=== PATIENT | male | born 1965 | race Caucasian/White ===

== ENCOUNTER 2024-07-02 13:50 | Outpatient (CLI) | payer MEDICARE, SELFPAY ==
[2024-07-02 16:53] LABS: Basophils # 0.1 K/mm3 (0-0.2); Basophils % 0.8 % (0.1-2.0); Eosinophils # 0.4 K/mm3 (0.0-0.4); Eosinophils % 3.4 % (0.1-12.0); Hematocrit 45.7 % (42.0-52.0); Hemoglobin 14.6 g/dL (14.1-18.0); Lymphocytes # 2.4 K/mm3 (0.7-4.5); Lymphocytes % 22.7 % (10-50); Mean Corpuscular Hemoglobin 33.9 pg (27.0-31.2); Mean Platelet Volume 8.7 fl (7.4-10.4); Monocytes # 0.9 K/mm3 (0.1-1.0); Monocytes % 8.1 % (1.7-9.3); Neutrophils % 65.1 % (37.0-80.0); Platelet Count 357 K/mm3 (142-424); Red Blood Count 4.31 M/mm3 (4.60-6.20); Red Cell Distribution Width 13.9 % (11.5-17.5); White Blood Count 10.7 K/mm3 (4.8-10.8)
[2024-07-02 17:24] LABS: Albumin Level 3.8 g/dl (3.5-5.0); Chloride 110 mmol/L (98-107); Potassium 4.2 mmoL/L (3.5-5.1); Sodium 139 mmol/L (136-145)
[2024-07-02 17:26] LABS: Alanine Aminotransferase 29 U/L (12-78); Anion Gap 8.2 mEq/L (5-15); Aspartate Amino Transferase 27 U/L (17-59); Blood Urea Nitrogen 19 mg/dl (9-20); Carbon Dioxide 25 mmol/L (22.0-30.0); Estimated Glomerular Filt Rate 77 ml/min (>60); GFR (African American) 93 ML/MIN (>60)
[2024-07-02 17:27] LABS: Albumin/Globulin Ratio 1.5 (1.1-1.8); Alkaline Phosphatase 71 U/L (38-126); Bilirubin,Total 0.5 mg/dl (0.2-1.3); Calcium 8.7 mg/dl (8.4-10.2); Chol/HDL Ratio 4.9 (1-3.5); Cholesterol 177 mg/dl (140-200); Globulin 2.6 g/dL (1.3-3.2); Glucose 95 mg/dl (74-100); HDL Cholesterol 36 mg/dl (40-60); Total Protein,Serum 6.4 g/dl (6.3-8.2); Triglycerides 146 mg/dl (30-150); VLDL Cholesterol 29 mg/dL (0-40)
[2024-07-02 17:38] LABS: Direct LDL Cholesterol 108.96 mg/dL (100-129)
[2024-07-02 20:57] LABS: HIV (1&2) Antibody Rapid NONREACTIVE (NONREACTIVE)
[2024-07-04 08:15] LABS: HCV Ab Non Reactive (Non Reactive)
== END 2024-07-02 23:59 | disposition home or self-care (01) ==
LOC: LAB.CARL 07-05 12:52
PROVIDERS: PCP Family Medicine; Visit Provider Family Medicine
DX: I10 Essential (primary) hypertension (principal); Z11.59 Encounter for screening for other viral diseases; Z11.4 Encounter for screening for human immunodeficiency virus [HIV]; R73.03 Prediabetes
CPT/HCPCS: 80053; 80061; 83036; 85025; 86803; 87389

== ENCOUNTER 2024-10-11 09:52 | Outpatient (CLI) | payer MEDICARE, SELFPAY ==
[2024-10-11 16:49] LABS: Hematocrit 44.5 % (42.0-52.0); Hemoglobin 14.6 g/dL (14.1-18.0); Mean Corpuscular HGB Conc 32.8 g/dL (31.8-35.4); Mean Corpuscular Hemoglobin 33.1 pg (27.0-31.2); Mean Corpuscular Volume 100.9 fl (80-94); Red Blood Count 4.41 M/mm3 (4.60-6.20); White Blood Count 9.4 K/mm3 (4.8-10.8)
[2024-10-11 16:50] LABS: Basophils # 0.1 K/mm3 (0-0.2); Basophils % 0.6 % (0.1-2.0); Eosinophils # 0.3 K/mm3 (0.0-0.4); Eosinophils % 3.2 % (0.1-12.0); Lymphocytes # 3.1 K/mm3 (0.7-4.5); Lymphocytes % 32.7 % (10-50); Monocytes # 1.1 K/mm3 (0.1-1.0); Neutrophils # 4.7 K/mm3 (1.8-7.8); Neutrophils % 50.3 % (37.0-80.0); Platelet Count 334 K/mm3 (142-424); Red Cell Distribution Width 13.2 % (11.5-17.5)
[2024-10-11 17:09] LABS: Alanine Aminotransferase 33 U/L (12-78); Albumin Level 3.8 g/dl (3.5-5.0); Albumin/Globulin Ratio 1.7 (1.1-1.8); Alkaline Phosphatase 76 U/L (38-126); Anion Gap 13.3 mEq/L (5-15); Aspartate Amino Transferase 34 U/L (17-59); Bilirubin,Total 0.6 mg/dl (0.2-1.3); Blood Urea Nitrogen 16 mg/dl (9-20); Carbon Dioxide 30 mmol/L (22.0-30.0); Chloride 103 mmol/L (98-107); Chol/HDL Ratio 5.1 (1-3.5); Cholesterol 113 mg/dl (140-200); Estimated Glomerular Filt Rate 62 ml/min (>60); GFR (African American) 76 ML/MIN (>60); Globulin 2.3 g/dL (1.3-3.2); Glucose 54 mg/dl (74-100); HDL Cholesterol 22 mg/dl (40-60); Potassium 4.3 mmoL/L (3.5-5.1); Sodium 142 mmol/L (136-145); Total Protein,Serum 6.1 g/dl (6.3-8.2); Triglycerides 92 mg/dl (30-150); VLDL Cholesterol 18 mg/dL (0-40)
[2024-10-11 17:20] LABS: Direct LDL Cholesterol 71.38 mg/dL (100-129)
[2024-10-11 18:32] LABS: Hemoglobin A1C 6.3 % (4.0-6.0)
[2024-10-15 05:08] LABS: Free Testosterone (Direct) 7.3 pg/mL (7.2-24.0); Testosterone, Total, LC/MS 316.9 ng/dL (264.0-916.0)
== END 2024-10-11 23:59 | disposition home or self-care (01) ==
LOC: LAB.DROPOF 10-12 09:53
PROVIDERS: PCP Family Medicine; Visit Provider Family Medicine
DX: E29.1 Testicular hypofunction (principal); I10 Essential (primary) hypertension; R73.03 Prediabetes
CPT/HCPCS: 80053; 80061; 83036; 85025

== ENCOUNTER 2025-08-19 09:53 | Outpatient (CLI) | payer MEDICARE, SELFPAY ==
[2025-08-19 16:54] LABS: Hematocrit 44.8 % (42.0-52.0); Hemoglobin 15.4 g/dL (14.1-18.0); Immature Granulocytes % 0.9 %; Mean Corpuscular HGB Conc 34.4 g/dL (31.8-35.4); Mean Corpuscular Hemoglobin 34.1 pg (27.0-31.2); Mean Corpuscular Volume 99.3 fl (80-94); Nucleated Red Blood Cells % 0 %; Platelet Count 369 K/mm3 (142-424); Red Blood Count 4.51 M/mm3 (4.60-6.20); Red Cell Distribution Width-SD 47.8 fL; White Blood Count 10.0 K/mm3 (4.8-10.8)
[2025-08-19 17:25] LABS: Hemoglobin A1C 6.1 % (4.0-6.0)
[2025-08-19 18:21] LABS: Albumin Level 4.8 g/dl (3.5-5.0); Chloride 102 mmol/L (98-107); Potassium 4.6 mmoL/L (3.5-5.1); Sodium 136 mmol/L (136-145)
[2025-08-19 18:24] LABS: Alanine Aminotransferase 25 U/L (12-78); Albumin/Globulin Ratio 2.2 (1.1-1.8); Alkaline Phosphatase 112 U/L (38-126); Anion Gap 10.6 mEq/L (5-15); Aspartate Amino Transferase 26 U/L (17-59); Bilirubin,Total 0.8 mg/dl (0.2-1.3); Carbon Dioxide 28 mmol/L (22.0-30.0); Cholesterol 168 mg/dl (140-200); Globulin 2.2 g/dL (1.3-3.2); Total Protein,Serum 7.0 g/dl (6.3-8.2); Triglycerides 114 mg/dl (30-150)
[2025-08-19 18:25] LABS: Calcium 9.2 mg/dl (8.4-10.2); Glucose 102 mg/dl (74-100); HDL Cholesterol 38 mg/dl (40-60)
[2025-08-19 18:44] LABS: Blood Urea Nitrogen 20 mg/dl (9-20); Creatinine,Serum 1.10 mg/dl (0.66-1.25); Estimated Glomerular Filt Rate 69 ml/min (>60); GFR (African American) 83 ML/MIN (>60)
[2025-08-19 19:13] LABS: Hepatitis C Ab Qual. W/ RFX NEGATIVE (Negative)
[2025-08-19 19:16] LABS: Thyroid Stimulating Hormone 1.20 uIU/mL (0.465-4.68)
--- OUTSIDE RECORDS SUMMARY | 2025-08-22 10:07 | XMS_ITS | Data Portability ---
Author Organization [facility] & [place] [facility] Address [address] [place] [address] Care Team Providers Care Public Housing Interviewer Name Role Phone JOSE KAMINSKI Primary Care Provider Assessment No assessment recorded. Plan of Treatment Reminders Order Date Submit Date Provider Last Modified By Organization Details Last Modified Time Details Appointments None record ed. Lab None record ed. Referral None record ed. Procedures None record ed. Surgeries None record ed. Imaging None record ed. Medication Orders None record ed. Patient TargetsNo targets recorded. Patient InstructionsNo instructions recorded. Reason for Referral None Reported. Results Created Date Observation Date Name Description Value Unit Range Abnormal Flag Note LastModifiedBy Organization Detail LastModifiedTime 10/10/20 22 10/10/2022 nerve condu ction study /EMG (PROC ) No observ ation record ed. [email or web address] Not Available 2021 17:36:20 Result Notes None recorded. Procedures Surgical History Date Name Laterality Status Provider Name and Address Organization Details Recorded Time 0 [facility] 08:[facility]03 procedure on back completed Bertha ROJO [facility] 05/15/2023 08:42:48 [facility] [place] [facility]/15/2023 08:42:26 Imaging Results None recorded. Procedure Notes None recorded. Medical Equipment None Reported. Allergies No known drug allergies Medications Name Sig Start Date Stop Date Status Note LastModified by Organization Details LastModified Time gabapentin 600 mg tablet TAKE 1 TABLET 3 TIMES EACH DAY active Not Available Not Available No t Available atorvastatin 20 mg tablet TAKE 1 TABLET 1 TIME EACH DAY active Not Available Not Available No t Available ibuprofen 800 mg tablet TAKE (1) TABLET BY MOUTH THREE TIMES DAILY NEEDED FOR PAIN. active Not Available Not Available No t Available lisinopril 20 mg tablet TAKE 1 TABLET 1 TIME EACH DAY active Not Available Not Available No t Available topiramate 25 mg tablet TAKE 1 TABLET 1 TIME EACH DAY active Not Available Not Available No t Available phentermine 37.5 mg tablet TAKE 1 TABLET 1 TIME EACH DAY FOR WEIGHT LOSS. TAKE 30 MINUTES BEFORE BREAKFAST OR 1 TO 2 HOURS AFTER BREAKFAST. active Not Available Not Available N ot Available phentermine 30 mg capsule TAKE 1 CAPSULE 1 TIME EACH DAY active Not Available Not Available No t Available amlodipine 10 mg tablet TAKE 1 TABLET 1 TIME EACH DAY active Not Available Not Available No t Available gabapentin 300 mg capsule TAKE 1 CAPSULE BY MOUTH THREE TIMES DAILY. active Not Available Not Available No t Available pravastatin 20 mg tablet TAKE 1 TABLET 1 TIME EACH DAY active Not Available Not Available No t Available triamterene 75 mg-hydrochlor othiazide 50 mg tablet TAKE 1 TABLET 1 TIME EACH DAY active Not Available Not Available No t Available ibuprofen 600 mg tablet TAKE 1 TABLET BY MOUTH THREE TIMES DAILY NEEDED FOR PAIN. active Not Available Not Available No t Available scopolamine 1 mg over 3 days transdermal patch active Not Available Not Available Not Available topiramate 100 mg tablet TAKE 1 TABLET 2 TIMES EACH DAY active Not Available Not Available No t Available topiramate 50 mg tablet Take 1 tablet twice a day by oral route. active Not Available Not Available No t Available phentermine active Not Available Not A vailable Not Available diclofenac 1 % topical gel APPLY 2 GRAMS 4 TIMES EACH DAY. APPLY TO SINGLE ELBOW, WRIST OR HAND (HAND INCLUDES PALM, FINGERS AND BACK OF HAND) active Not Available Not Available No t Available Vitals Date Recorded Body height Body mass index (BMI) Body weight Provider Name and Address Organization Details Last Updated DateTime 05/15/2023 185.42 cm 46.2 kg/m2 943973.33 g Bertha Parry [facility] & [place] 05/15/2023 08:38:49 Social History Question Answer Notes LastModified by Organizat ion Details LastModified Time Tobacco Smoking Status Former Smoker Karoline bowens, [facility] & [place] 10/07/2022 11:28:49 Do You Have An Advance Directive? No Information not available 05/15/2023 Sex: Unknown Functional Status Question Answer Note LastModified by Organizat ion Details LastModified Time What is your level of alcohol consumption? Occasional Information not available 05/15/2023 Mental Status None recorded. Family History Relationship Description Onset Age of this Age Resolved Age Notes LastModified by Organization Details LastModified Time Father Hypertensive disorder [email or web address] Not available 2022 08:39:58 Father Heart disease [email or web address] Not available 2022 08:40:16 Mother Heart disease [email or web address] Not available 2022 08:40:16 Medical History Condition Response Gout Y Back Problems Y Hypertension Y High Cholesterol Y Immunizations Vaccine Type Date Status Note Provider Nam e and Address Organization Details Recorded Time Influenza, split virus, quadrivalent, preservative 8 completed Briana Dulce Maria null, [place] - [facility] & [place] 10/14/2024 09:08:29 Influenza, split virus, quadrivalent, preservative 2 completed Briana Dulce Maria null, [place] - [facility] [place] & [place] 10/14/2024 09:08:29 Influenza, split virus, quadrivalent, preservative 1 completed Briana Dulce [place] null, [place] - [facility] & [place] 10/14/2024 09:08:29 Influenza, split virus, quadrivalent, preservative 8 completed Briana Dulce Maria null, [place] - [facility] [place] & [place] 10/14/2024 09:08:29 COVID-19, mRNA, LNP-S, PF, 100 mcg/0.5mL dose or 50 mcg/0.25mL dose 1 completed Briana Dulce Maria null, [place] - [facility] [place] & [place] 10/14/2024 09:08:29 COVID-19, mRNA, LNP-S, PF, 100 mcg/0.5mL dose or 50 mcg/0.25mL dose 1 completed Briana Dulce Maria null, [place] - [facility] & [place] 10/14/2024 09:08:29 COVID-19, mRNA, LNP-S, bivalent, PF, 50 mcg/0.5 mL or 25mcg/0.25 mL dose 2 completed Briana Dulce Maria null, [place] - [facility] - [place] & [place] 10/14/2024 09:08:29 Tdap 6 completed Briana Dulce Maria null, [place] - [facility] [place] & [place] 10/14/2024 09:08:29 Influenza, split virus, trivalent, preservative 0 completed Briana Dulce [place] null, [place] - [facility] [place] & [place] 10/14/2024 09:08:29 Td (adult), 2 Lf tetanus toxoid, preservative free, adsorbed 8 completed Briana Dulce [place] null, [place] - [facility] [place] & [place] 10/14/2024 09:08:29 Td (adult), 2 Lf tetanus toxoid, preservative free, adsorbed 7 completed Briana Dulce Maria null, [place] - [facility] - [place] & [place] 10/14/2024 09:08:29 Past Encounters Encounter ID Performer Location Encounter Start Date Encounter Closed Date Diagnosis/Indication Diagnosis SNOMED-CT Code Diagnosis ICD10 Code Diagnosis IMO Codes Diagnosis Note [id number] [facility] [place] [id number] 10/10/2022 14:50:01 10/10/2022 15:44:55 Bilateral carpal tunnel syndrome 9480156578 1648412 G56.03 [id number] Pepe Davis MD [facility] [address] [address] 05/15/2023 08:31:36 05/15/2023 09:28:46 Bilateral carpal tunnel syndrome 3794864535 3050407 G56.03 Ulnar nerv e entrapment at elbow 225145451 G56.23 [id number] Pepe Davis MD [facility] [place] [phone] 10/14/2024 08:58:47 10/14/2024 09:34:28 Carpal tunnel syndrome of right wrist 1234133098 91910 G56.01 Health Concerns Section Related Observation LastModified by Organization Detai ls LastModified Time None Recorded Concern Status LastModified by Organization Details LastModified Time None Recorded Advance Directives Directive N: Payers Insurance Date Sequence Insurance Name Policy Number Policy Clement Covered Member ID Clement Member ID Guarantor Name 12/03/2024 1 [place]MEDICARE REPLACEMENT HMO) [id number] Jorge Moreno [id number] Jorge Moreno 10/17/2022 1 [place] Jorge Moreno [id number] Jorge Moreno 12/20/2024 2 MEDICAID-[facility] Jorge Moreno [id number] Jorge Moreno Notes Date Note Type Note Provider Name and Address Organization Details Recorded Time 10/10/2022 text/html ROS as noted in the HPI 57 y/o male here today for bilateral CTS. No recent EMG. Was told 20 years ago when applying for a job with [employer] he had carpal tunnel, would not hire him but is unsure how severe it was then. In the last couple months his fingertips have stayed numb. Denies neck pain. Has worn the wrist braces at night in past. Denies dropping things. [id number] Pepe Davis MD [address] [place] [address],[address], [place], [address], [facility] 10/14/2022 13:22:46 05/15/2023 text/html ROS as noted in the HPI 57 year old male here today for bilateral carpal tunnel syndrome. He states that left feels worse than right. He has tried bracing, did not help. states every finger of bilateral hands are numb. Pepe Davis MD [address] [place] [address],[address], [place], [address], [facility] 05/16/2023 07:10:36 10/14/2024 text/html ROS as noted in the HPI Pt is here to discuss Rt CTR. 03/24/2023- [place] upper EMG- [facility]: 1. 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 He he wanting to discuss Rt [id number] Pepe Davis MD [address] [facility],[address], [place], [address], [facility] - [place] & [place] 10/14/2024 09:48:04
--- OUTSIDE RECORDS SUMMARY | 2025-08-22 10:07 | XMS_ITS | Data Portability ---
Author Organization [facility] Address [address] [place] [address] Assessment Encounter Date Assessment Date Assessment LastModified by Organization Details LastModified Time 08/23/2022 08/23/2022 controlled drug agreement reviewed and signed 11/09/21 UDS today [email or web address] Not available 08/16/2022 21:12:06 03/07/2023 03/07/2023 controlled drug agreement reviewed and signed 11/09/21 UDS today [email or web address] Not available 03/07/2023 09:03:13 05/05/2023 05/05/2023 controlled drug agreement reviewed and signed 11/09/21 UDS 03/07/23 [email or web address] Not available 04/25/2023 21:37:28 10/06/2023 10/06/2023 controlled drug agreement reviewed and signed 11/09/21 UDS 03/07/23, today [email or web address] Not available 07/30/2023 11:08:02 Plan of Treatment Reminders Order Date Submit Date Provider Last Modified By Organization Details Last Modified Time Details Appointments None recorded. Lab HbA1c (hemoglobin A1c), blood 2022 023 KARAN [facility], [address], [address], [place], [address], 3 07:13:34 CMP, serum or plasma 2022 023 KARAN [facility], [address], [address], [place], [address], 3 07:13:30 drug screen, 14 drugs (detectimed ), urine 2022 023 KARAN [facility], [address], [address], [place], [address], 3 12:09:13 lipid panel, serum 2022 023 KARAN [facility], [address], [address], [place], [address], 3 07:13:31 vitamin B12 + folate, serum or blood 2022 023 KARAN [facility], [address], [address], [place], [address], 3 07:13:33 HbA1c (hemoglobin A1c), blood 2022 023 KARAN [facility], [address], [address], [place], [address], 3 06:17:29 CMP, serum or plasma 2022 023 KARAN [facility], [address], [address], [place], [address], 3 06:17:28 drug screen, 14 drugs (detectimed ), urine 2022 023 KARAN [facility], [address], [address], [place], [address], 3 14:12:22 vitamin D, 25-hydroxy, total, serum 2022 023 KARAN [facility], [address], [address], [place], [address], 3 06:17:30 CBC w/ auto diff 2022 023 KARAN [facility], [address], [address], [place], [address], 3 06:17:27 lipid panel, serum 2022 023 KARAN [facility], [address], [address], [place], [address], 06:17:29 drug screen, 14 drugs (detectimed ), urine 2021 nguttman [facility], [address], [address], [place], [address], 17:31:48 lipid panel, serum 2021 KARAN [facility], [address], [address], [place], [address], 07:13:08 CMP, serum or plasma 2021 KARAN [facility], [address], [address], [place], [address], 07:13:07 PSA, total, serum or plasma 2021 KARAN [facility], [address], [address], [place], [address], 07:13:09 vitamin D, 25-hydroxy, total, serum 2021 KARAN [facility], [address], [address], [place], [address], 07:13:09 Referral orthopedic surgeon referral 2021 KARAN Davis MD, [address] [facility] , [place], [address], 16:16:41 Procedures None recorded. Surgeries None recorded. Imaging electromyog moreno + nerve conduction study 2022 023 KARAN Ruth PT, [address], [address], [place], [address], 14:14:22 Medication Orders phentermine 37.5 mg capsule 2022 023 KARAN [facility], [address], [place], [address], 4 15:46:09 topiramate 100 mg tablet 2022 023 KARAN [facility], [address], [place], [address], 3 16:40:28 gabapentin 600 mg tablet 2022 023 KARAN [facility], [address], [place], [address], 3 16:40:27 phentermine 37.5 mg capsule 2022 023 KARAN [facility], [address], [place], [address], 3 14:28:54 Mounjaro 2.5 mg/0.5 mL subcutaneou s pen injector 2022 023 KARAN [facility], [address], [place], [address], 3 11:06:59 gabapentin 600 mg tablet 2022 023 KARAN [facility], [address], [place], [address], 3 14:28:57 topiramate 50 mg tablet 2022 023 ngutzack [facility], [address], [place], [address], 4 16:04:43 phentermine 37.5 mg capsule 2022 023 KARAN [facility], [address], [place], [address], 3 09:15:30 [facility] 20 mg tablet [facility], [address] [place] [address], [id number], 3 21:36:30 ibuprofen 600 mg tablet 2022 023 OKEMAH [facility], [address] [place] [address], [id number], 3 09:21:23 Vitamin D3 50 mcg (2,000 unit) capsule 2022 023 [facility], [address] [place] [address], [id number], 3 09:21:22 amlodipine 10 mg tablet 2022 023 [facility], [address] [place] [address], [id number], 3 09:21:22 lisinopril 20 mg tablet 2022 023 [facility], [address] [place] [address], [id number], 3 09:21:22 triamterene 75 mg-hydrochl orothiazide 50 mg tablet 2022 023 [facility], [address] [place] [address], [id number], 3 09:21:23 Vitamin B-12 1,000 mcg tablet 2022 023 [facility], [address] [place] [address], [id number], 3 09:21:24 [facility]iramate 50 mg tablet [facility], [address] [place] [address], [id number], 16:04:43 gabapentin 600 mg tablet 2021 022 KARAN [facility], [address] [place] [address], [place], [place], [id number], 09:31:03 Patient TargetsNo targets recorded. Patient Instructions Encounter Date Encounter Id Patient Instructions Last Modified By Organization Details Last Modified Time 04/15/2022 [id number] return friday if not improving, okay if packing comes out tomorrow [email or web address] Not available 04/16/2022 19:04:43 08/23/2022 [id number] learning about healthy weight [email or web address] Not available 08/23/2022 09:20:01 03/07/2023 [id number] learning about healthy weight [email or web address] Not available 03/07/2023 09:13:25 05/05/2023 [id number] learning about healthy weight nguttman Not available 05/05/2023 14:28:24 10/06/2023 [id number] learning about healthy weight nguttman Not available 10/06/2023 09:12:55 recombinant zoster (shingles) vaccine: what you need to know [email or web address] Not available 10/06/2023 09:12:56 Reason for Referral Orthopedic Surgeon Referral for Bilateral carpal tunnel syndrome Referring Physician: Caroline Carlos, Family Medicine, Encounter Date: 08/23/2022 Results Created Date Observation Date Name Description Value Unit Range Abnormal Flag Note LastModifiedBy Organization Detail LastModifiedTime 08/23/2008/24/2022 COMP. METAB OLIC PANEL (14) glucose 86 mg/dL 70-99 Not Available [facility] ([facility]) [address] [place], [address], 08/24/2022 07:13:07 08/23/20 22 08/24/2022 COMP. METAB OLIC PANEL (14) BUN 23 mg/dL 6-24 Not Available [facility] ([facility]) [address] [place], [address], 08/24/2022 07:13:07 08/23/20 22 08/24/2022 COMP. METAB OLIC PANEL (14) creatinine 1.23 mg/dL 0.76-1 .27 Not Available [facility] ([facility]) [address] [facility] [address], [place], [address], 08/24/2022 07:13:07 08/23/20 22 08/24/2022 COMP. METAB OLIC PANEL (14) eGFR 69 mL/mi n/1.7 3 >59 Not Available [facility] ([facility]) [address] [facility], [place], [address], 08/24/2022 07:13:07 08/23/20 22 08/24/2022 COMP. METAB OLIC PANEL (14) BUN/creatini ne ratio 19 9-20 Not Available [facility] ([facility]) [address] [facility], [place], [address], 08/24/2022 07:13:07 08/23/20 22 08/24/2022 COMP. METAB OLIC PANEL (14) sodium 139 mmol/ L 134-14 4 Not Available [facility] ([facility]) [address] [place], [address], 08/24/2022 07:13:07 08/23/20 22 08/24/2022 COMP. METAB OLIC PANEL (14) potassium 4.6 mmol/ L 3.5-5. 2 Not Available [facility] ([facility]) [address] [facility], [place], [address], 08/24/2022 07:13:07 08/23/20 22 08/24/2022 COMP. METAB OLIC PANEL (14) chloride 103 mmol/ L 96-106 Not Available [facility] ([facility]) [address] [place], [address], 08/24/2022 07:13:07 08/23/20 22 08/24/2022 COMP. METAB OLIC PANEL (14) carbon dioxide, total 21 mmol/ L 20-29 Not Available [facility] ([facility]) [address], [place], [address], 08/24/2022 07:13:07 08/23/20 22 08/24/2022 COMP. METAB OLIC PANEL (14) calcium 9.4 mg/dL 8.7-10 .2 Not Available [facility] ([facility]) [address] [place], [address], 08/24/2022 07:13:07 08/23/20 22 08/24/2022 COMP. METAB OLIC PANEL (14) protein, total 6.9 g/dL 6.0-8. 5 Not Available [facility] ([facility]) [address] [place], [address], 08/24/2022 07:13:07 08/23/20 22 08/24/2022 COMP. METAB OLIC PANEL (14) albumin 4.6 g/dL 3.8-4. 9 Not Available [facility] ([facility]) [address] [facility] [place], [address], 08/24/2022 07:13:07 08/23/20 22 08/24/2022 COMP. METAB OLIC PANEL (14) globulin, total 2.3 g/dL 1.5-4. 5 Not Available [facility] ([facility]) [address] [facility] [place], [address], 08/24/2022 07:13:07 08/23/20 22 08/24/2022 COMP. METAB OLIC PANEL (14) A/G ratio 2.0 1.2-2. 2 Not Available [facility] ([facility]) [address] [facility] [place], [address], 08/24/2022 07:13:07 08/23/20 22 08/24/2022 COMP. METAB OLIC PANEL (14) bilirubin, total 0.7 mg/dL 0.0-1. 2 Not Available [facility] ([facility]) [address] [facility] [address], [place], [address], 08/24/2022 07:13:07 08/23/20 22 08/24/2022 COMP. METAB OLIC PANEL (14) alkaline phosphatase 77 IU/L 44-121 Not Available [facility] ([facility]) [address] [facility] [address], [place], [address], 08/24/2022 07:13:07 08/23/20 22 08/24/2022 COMP. METAB OLIC PANEL (14) AST (SGOT) 18 IU/L 0-40 Not Available [facility] ([facility]) [address] [place], [address], 08/24/2022 07:13:07 08/23/20 22 08/24/2022 COMP. METAB OLIC PANEL (14) ALT (SGPT) 18 IU/L 0-44 Not Available [facility] ([facility]) [address] [place], [address], 08/24/2022 07:13:07 08/23/20 22 08/24/2022 LIPID PANEL cholesterol, total 165 mg/dL 100-19 9 Not Available [facility] ([facility]) [address] [place], [address], 08/24/2022 07:13:08 08/23/20 22 08/24/2022 LIPID PANEL triglyceride s 81 mg/dL 0-149 Not Available [facility] ([facility]) [address] [place], [address], 08/24/2022 07:13:08 08/23/20 22 08/24/2022 LIPID PANEL HDL cholesterol 44 mg/dL >39 Not Available [facility] ([facility]) [address] [place], [address], 08/24/2022 07:13:08 08/23/20 22 08/24/2022 LIPID PANEL VLDL cholesterol mary ellen 15 mg/dL 5-40 Not Available [facility] ([facility]) [address] [facility] [address], [place], [address], 08/24/2022 07:13:08 08/23/20 22 08/24/2022 LIPID PANEL LDL chol calc ([facility]) 106 mg/dL 0-99 above high normal Not Available [facility] ([facility]) [address] [facility] [address], [place], [address], 08/24/2022 07:13:08 08/23/20 22 08/24/2022 LIPID PANEL comment: TUNG NUT GROWER Not Available [facility] ([facility]) [address] [facility], [place], [address], 08/24/2022 07:13:08 08/23/20 22 08/24/2022 PROST ATE-S PECIF IC AG prostate specific Ag 1.5 NG/mL 0.0-4. 0 Sarkis ECLIA metho dolog y. Accor ding to the Ameri can Urolo gical Assoc iatio n, Serum PSA shoul d decre ase and remai n at undet ectab le level s after radic al prost atect silvana. The AUA defin es bioch emica l recur rence as an initi al PSA value 0.2 ng/mL or great er follo wed by a subse quent confi rmato ry PSA value 0.2 ng/mL or great er. Value s obtai kojo with diffe rent assay metho ds or kits canno t be used inter louis eably . Resul ts canno t be inter prete d as absol venkat evide nce of the prese nce or absen ce of pam lamas se. Not Available [facility] ([facility]) [address] [facility], [place], [address], 08/24/2022 07:13:09 08/23/20 22 08/24/2022 VITAM IN D, 25-HY DROXY vitamin D, 25-hydroxy 27.4 NG/mL 30.0-1 00.0 below low normal Vitam in D defic iency has been defin ed by the Insti tute of Medic ine and an Endoc rine Socie ty pract ice guide line as a level of serum 25-OH vitam in D less than 20 ng/mL (1,2) . The Endoc rine Socie ty went on to fur er defin e vitam in D insuf ficie ncy as a level betwe en 21 and 29 ng/mL (2). 1. IOM (Inst itute of Medic ine). 2010. Dieta ry refer ence intak es for calci um and D. Breezy mandujano [place]: The [facility] Press . 2. Moody ann MF, Guille grant [place], Estefanía off-F errar i CARRASCO, et al. Evalu ation , treat ment, and preve ntion of vitam in D defic iency : an Endoc rine Socie ty clini mary ellen pract ice guide line. JCEM. 2010; 96(7) :1911 -30. Not Available [facility] ([facility]) [address] [place], [address], 08/24/2022 07:13:09 03/07/20 23 03/08/2023 CBC WITH DIFFE RENTI AL/PL ATELE T WBC 9.8 x10e3 /uL 3.4-10 .8 Not Available [facility] ([facility]) [address] [place], [address], 03/08/2023 06:17:27 03/07/2003/08/2023 CBC WITH DIFFE RENTI AL/PL ATELE T RBC 4.70 x10e6 /uL 4.14-5 .80 Not Available [facility] ([facility]) [address] [place], [address], 03/08/2023 06:17:27 03/07/20 23 03/08/2023 CBC WITH DIFFE RENTI AL/PL ATELE T hemoglobin 15.9 g/dL 13.0-1 7.7 Not Available [facility] ([facility]) [address] [place], [address], 03/08/2023 06:17:27 03/07/20 23 03/08/2023 CBC WITH DIFFE RENTI AL/PL ATELE T hematocrit 45.6 % 37.5-5 1.0 Not Available [facility] ([facility]) [address] [facility], [place], [address], 03/08/2023 06:17:27 03/07/20 23 03/08/2023 CBC WITH DIFFE RENTI AL/PL ATELE T MCV 97 fL 79-97 Not Available [facility] ([facility]) [address] [facility] [address], [place], [address], 03/08/2023 06:17:27 03/07/20 23 03/08/2023 CBC WITH DIFFE RENTI AL/PL ATELE T MCH 33.8 pg 26.6-3 3.0 above high normal Not Available [facility] ([facility]) [address] [facility], [place], [address], 03/08/2023 06:17:27 03/07/20 23 03/08/2023 CBC WITH DIFFE RENTI AL/PL ATELE T MCHC 34.9 g/dL 31.5-3 5.7 Not Available [facility] ([facility]) [address] [place], [address], 03/08/2023 06:17:27 03/07/20 23 03/08/2023 CBC WITH DIFFE RENTI AL/PL ATELE T RDW 12.7 % 11.6-1 5.4 Not Available [facility] ([facility]) [address] [place], [address], 03/08/2023 06:17:27 03/07/20 23 03/08/2023 CBC WITH DIFFE RENTI AL/PL ATELE T platelets 334 x10e3 /uL 150-45 0 Not Available [facility] ([facility]) [address] [place], [address], 03/08/2023 06:17:27 03/07/20 23 03/08/2023 CBC WITH DIFFE RENTI AL/PL ATELE T neutrophils 60 % not estab. Not Available [facility] ([facility]) [address] [facility], [place], [address], 03/08/2023 06:17:27 03/07/20 23 03/08/2023 CBC WITH DIFFE RENTI AL/PL ATELE T lymphs 23 % not estab. Not Available [facility] ([facility]) [address] [facility], [place], [address], 03/08/2023 06:17:27 03/07/20 23 03/08/2023 CBC WITH DIFFE RENTI AL/PL ATELE T monocytes 10 % not estab. Not Available [facility] ([facility]) [address] [facility] [address], [place], [address], 03/08/2023 06:17:27 03/07/20 23 03/08/2023 CBC WITH DIFFE RENTI AL/PL ATELE T eos 4 % not estab. Not Available [facility] ([facility]) [address] [facility] [address], [place], [address], 03/08/2023 06:17:27 03/07/20 23 03/08/2023 CBC WITH DIFFE RENTI AL/PL ATELE T basos 1 % not estab. Not Available [facility] ([facility]) [address] [facility] [address], [place], [address], 03/08/2023 06:17:27 03/07/20 23 03/08/2023 CBC WITH DIFFE RENTI AL/PL ATELE T immature cells TUNG NUT GROWER Not Available [facility] ([facility]) [address] [place], [address], 03/08/2023 06:17:27 03/07/20 23 03/08/2023 CBC WITH DIFFE RENTI AL/PL ATELE T neutrophils (absolute) 5.9 x10e3 /uL 1.4-7. 0 Not Available [facility] ([facility]) [address] [place], [address], 03/08/2023 06:17:27 03/07/20 23 03/08/2023 CBC WITH DIFFE RENTI AL/PL ATELE T lymphs (absolute) 2.3 x10e3 /uL 0.7-3. 1 Not Available [facility] ([facility]) [address] [place], [address], 03/08/2023 06:17:27 03/07/20 23 03/08/2023 CBC WITH DIFFE RENTI AL/PL ATELE T monocytes(ab solute) 1.0 x10e3 /uL 0.1-0. 9 above high normal Not Available [facility] ([facility]) [address] [place], [address], 03/08/2023 06:17:27 03/07/20 23 03/08/2023 CBC WITH DIFFE RENTI AL/PL ATELE T eos (absolute) 0.4 x10e3 /uL 0.0-0. 4 Not Available [facility] ([facility]) [address] [place], [address], 03/08/2023 06:17:27 03/07/20 23 03/08/2023 CBC WITH DIFFE RENTI AL/PL ATELE T baso (absolute) 0.1 x10e3 /uL 0.0-0. 2 Not Available [facility] ([facility]) [address] [place], [address], 03/08/2023 06:17:27 03/07/20 23 03/08/2023 CBC WITH DIFFE RENTI AL/PL ATELE T immature granulocytes 2 % not estab. Not Available [facility] ([facility]) [address] [place], [address], 03/08/2023 06:17:27 05/19/20 23 03/08/2023 CBC WITH DIFFE RENTI AL/PL ATELE T immature grans (abs) 0.2 x10e3 /uL 0.0-0. 1 above high normal (An eleva janice perce ntage of Immat ure Granu locyt es has not been found to be clini darlene signi fican t as a sole clini mary ellen predi ctor of disea se. Does NOT inclu de bands or blast cells . Pregn imtiaz assoc iated physi ologi mary ellen leuko cytos is may also show incre ased immat ure granu locyt es witho ut clini mary ellen signi fican ce.) Not Available [facility] ([facility]) [address] [facility], [place], [address], 03/08/2023 06:17:27 03/07/20 23 03/08/2023 CBC WITH DIFFE RENTI AL/PL ATELE T NRBC TUNG NUT GROWER Not Available [facility] ([facility]) [address] [place], [address], 03/08/2023 06:17:27 03/07/20 23 03/08/2023 CBC WITH DIFFE RENTI AL/PL ATELE T hematology comments: TUNG NUT GROWER Not Available [facility] ([facility]) [address] [place], [address], 03/08/2023 06:17:27 03/07/20 23 03/08/2023 COMP. METAB OLIC PANEL (14) glucose 100 mg/dL 70-99 above high normal Not Available [facility] ([facility]) [address] [place], [address], 03/08/2023 06:17:28 03/07/20 23 03/08/2023 COMP. METAB OLIC PANEL (14) BUN 23 mg/dL 6-24 Not Available [facility] ([facility]) [address] [place], [address], 03/08/2023 06:17:28 03/07/20 23 03/08/2023 COMP. METAB OLIC PANEL (14) creatinine 1.28 mg/dL 0.76-1 .27 above high normal Not Available [facility] ([facility]) [address] [place], [address], 03/08/2023 06:17:28 03/07/20 23 03/08/2023 COMP. METAB OLIC PANEL (14) eGFR 66 mL/mi n/1.7 3 >59 Not Available [facility] ([facility]) [address] [place], [address], 03/08/2023 06:17:28 03/07/20 23 03/08/2023 COMP. METAB OLIC PANEL (14) BUN/creatini ne ratio 18 9-20 Not Available [facility] ([facility]) [address] [place], [address], 03/08/2023 06:17:28 03/07/20 23 03/08/2023 COMP. METAB OLIC PANEL (14) sodium 143 mmol/ L 134-14 4 Not Available [facility] ([facility]) [address] [place], [address], 03/08/2023 06:17:28 03/07/20 23 03/08/2023 COMP. METAB OLIC PANEL (14) potassium 5.1 mmol/ L 3.5-5. 2 Not Available [facility] ([facility]) [address] [place], [address], 03/08/2023 06:17:28 03/07/20 23 03/08/2023 COMP. METAB OLIC PANEL (14) chloride 108 mmol/ L 96-106 above high normal Not Available [facility] ([facility]) [address] [place], [address], 03/08/2023 06:17:28 03/07/20 23 03/08/2023 COMP. METAB OLIC PANEL (14) carbon dioxide, total 21 mmol/ L Not Available [facility] ([facility]) [address] [facility] [place], [address], 03/08/2023 06:17:28 03/07/20 23 03/08/2023 COMP. METAB OLIC PANEL (14) calcium 9.5 mg/dL 8.7-10 .2 Not Available [facility] ([facility]) [address] [facility], [place], [address], 03/08/2023 06:17:28 03/07/20 23 03/08/2023 COMP. METAB OLIC PANEL (14) protein, total 6.9 g/dL 6.0-8. 5 Not Available [facility] ([facility]) [address] [facility], [place], [address], 03/08/2023 06:17:28 03/07/20 23 03/08/2023 COMP. METAB OLIC PANEL (14) albumin 4.6 g/dL 3.8-4. 9 Not Available [facility] ([facility]) [address] [facility] [place], [address], 03/08/2023 06:17:28 03/07/20 23 03/08/2023 COMP. METAB OLIC PANEL (14) globulin, total 2.3 g/dL 1.5-4. 5 Not Available [facility] ([facility]) [address] [facility], [place], [address], 03/08/2023 06:17:28 03/07/20 23 03/08/2023 COMP. METAB OLIC PANEL (14) A/G ratio 2.0 1.2-2. 2 Not Available [facility] ([facility]) [address] [facility] [place], [address], 03/08/2023 06:17:28 03/07/20 23 03/08/2023 COMP. METAB OLIC PANEL (14) bilirubin, total 0.4 mg/dL 0.0-1. 2 Not Available [facility] ([facility]) [address] [facility] [place], [address], 03/08/2023 06:17:28 03/07/20 23 03/08/2023 COMP. METAB OLIC PANEL (14) alkaline phosphatase 76 IU/L 44-121 Not Available [facility] ([facility]) [address] [facility], [place], [address], 03/08/2023 06:17:28 03/07/20 23 03/08/2023 COMP. METAB OLIC PANEL (14) AST (SGOT) 14 IU/L 0-40 Not Available [facility] ([facility]) [address] [facility] [place], [address], 03/08/2023 06:17:28 03/07/20 23 03/08/2023 COMP. METAB OLIC PANEL (14) ALT (SGPT) 15 IU/L 0-44 Not Available [facility] ([facility]) [address] [facility], [place], [address], 03/08/2023 06:17:28 03/07/20 23 03/08/2023 LIPID PANEL cholesterol, total 189 mg/dL 100-19 9 Not Available [facility] ([facility]) [address] [place], [address], 03/08/2023 06:17:29 03/07/20 23 03/08/2023 LIPID PANEL triglyceride s 82 mg/dL 0-149 Not Available [facility] ([facility]) [address] [place], [address], 03/08/2023 06:17:29 03/07/20 23 03/08/2023 LIPID PANEL HDL cholesterol 41 mg/dL >39 Not Available [facility] ([facility]) [address] [place], [address], 03/08/2023 06:17:29 05/19/03/08/2023 LIPID PANEL VLDL cholesterol mary ellen 15 mg/dL 5-40 Not Available [facility] ([facility]) [address] [place], [address], 03/08/2023 06:17:29 03/07/20 23 03/08/2023 LIPID PANEL LDL chol calc ([facility]) 133 mg/dL 0-99 above high normal Not Available [facility] ([facility]) [address] [place], [address], 03/08/2023 06:17:29 03/07/20 23 03/08/2023 LIPID PANEL comment: TUNG NUT GROWER Not Available [facility] ([facility]) [address] [facility], [place], [address], 03/08/2023 06:17:29 03/07/20 23 03/08/2023 HEMOG LOBIN A1C hemoglobin A1C 5.7 % 4.8-5. 6 above high normal Predi abete s: 5.7 - 6.4 Diabe katy: >6.4 Glyce usama contr ol for adult s with diabe katy: <7.0 Not Available [facility] ([facility]) [address] [facility], [place], [address], 03/08/2023 06:17:29 03/07/20 23 03/08/2023 VITAM IN D, 25-HY DROXY vitamin D, 25-hydroxy 41.9 NG/mL 30.0-1 00.0 Vitam in D defic iency has been defin ed by the Insti tute of Medic ine and an Endoc rine Socie ty pract ice guide line as a level of serum 25-OH vitam in D less than 20 ng/mL (1,2) . The Endoc rine Socie ty went on to furth er defin e vitam in D insuf ficie ncy as a level betwe en 21 and 29 ng/mL (2). 1. IOM (Inst itute of Medic ine). 2010. Dieta ry refer ence rufina es for calci um and D. Breezy mandujano [place]: [employer] . 2. Moody ann [place], Guille grant [place], Estefanía off-F errar i CARRASCO, et al. Evalu ation , treat ment, and preve ntion of vitam in D defic iency : an Endoc rine Socie ty clini mary ellen pract ice guide line. JCEM. 2010; 96(7) :1911 -30. Not Available [facility] ([facility]) [address], [place], [address], 03/08/2023 06:17:30 03/07/20 23 03/14/2023 COMPL IANCE DRUG WENDI SIS, UR summary report (summary) FINAL ===== ===== ===== ===== ===== ===== ===== ===== ===== ===== ===== ===== ===== === TOXAS SURE COMP DRUG WENDI SIS,U R ===== ===== ===== ===== ===== ===== ===== ===== ===== ===== ===== ===== ===== === Test Resul t Flag Units Drug Prese nt Rital inic Acid PRESE NT Rital inic acid is an expec janice metab olite of methy lphen idate . Sourc e of methy lphen idate is a sched uled presc ripti on medic ation . Gabap entin PRESE NT Topir amate PRESE NT ===== ===== ===== ===== ===== ===== ===== ===== ===== ===== ===== ===== ===== === Test Resul t Flag Units Ref Range Creat inine 98 mg/dL >=20 ===== ===== ===== ===== ===== ===== ===== ===== ===== ===== ===== ===== ===== === Decla red Medic ation s: Medic ation list was not provi ded. ===== ===== ===== ===== ===== ===== ===== ===== ===== ===== ===== ===== ===== === For clini mary ellen consu ltati on, pleas e call . ===== ===== ===== ===== ===== ===== ===== ===== ===== ===== ===== ===== ===== === Not Available [facility] ([facility]) [address] [place], [address], 03/14/2023 14:12:22 03/07/20 23 03/14/2023 COMPL IANCE DRUG WENDI SIS, UR pdf . Not Available [facility] ([facility]) [address] [place], [address], 03/14/2023 14:12:22 10/06/20 23 10/07/2023 COMP. METAB OLIC PANEL (14) glucose 107 mg/dL 70-99 above high normal Not Available [facility] ([facility]) [address] [place], [address], 10/07/2023 07:13:30 10/06/20 23 10/07/2023 COMP. METAB OLIC PANEL (14) BUN 24 mg/dL 6-24 Not Available [facility] ([facility]) [address] [place], [address], 10/07/2023 07:13:30 10/06/20 23 10/07/2023 COMP. METAB OLIC PANEL (14) creatinine 1.24 mg/dL 0.76-1 .27 Not Available [facility] ([facility]) [address] [facility] [place], [address], 10/07/2023 07:13:30 10/06/20 23 10/07/2023 COMP. METAB OLIC PANEL (14) eGFR 68 mL/mi n/1.7 3 >59 Not Available [facility] ([facility]) [address] [facility] [place], [address], 10/07/2023 07:13:30 10/06/20 23 10/07/2023 COMP. METAB OLIC PANEL (14) BUN/creatini ne ratio 08 07- Not Available [facility] ([facility]) [address] [facility] [place], [address], 10/07/2023 07:13:30 10/06/20 23 10/07/2023 COMP. METAB OLIC PANEL (14) sodium 140 mmol/ L 134-14 4 Not Available [facility] ([facility]) [address] [facility] [place], [address], 10/07/2023 07:13:30 10/06/20 23 10/07/2023 COMP. METAB OLIC PANEL (14) potassium 4.6 mmol/ L 3.5-5. 2 Not Available [facility] ([facility]) [address] [place], [address], 10/07/2023 07:13:30 10/06/20 23 10/07/2023 COMP. METAB OLIC PANEL (14) chloride 105 mmol/ L 96-106 Not Available [facility] ([facility]) [address] [place], [address], 10/07/2023 07:13:30 10/06/20 23 10/07/2023 COMP. METAB OLIC PANEL (14) carbon dioxide, total 21 mmol/ L 20-29 Not Available [facility] ([facility]) [address] [place], [address], 10/07/2023 07:13:30 10/06/20 23 10/07/2023 COMP. METAB OLIC PANEL (14) calcium 9.2 mg/dL 8.7-10 .2 Not Available [facility] ([facility]) [address] [place], [address], 10/07/2023 07:13:30 10/06/20 23 10/07/2023 COMP. METAB OLIC PANEL (14) protein, total 7.1 g/dL 6.0-8. 5 Not Available [facility] ([facility]) [address] [place], [address], 10/07/2023 07:13:30 10/06/20 23 10/07/2023 COMP. METAB OLIC PANEL (14) albumin 4.4 g/dL 3.8-4. 9 Not Available [facility] ([facility]) [address] [facility] [place], [address], 10/07/2023 07:13:30 10/06/20 23 10/07/2023 COMP. METAB OLIC PANEL (14) globulin, total 2.7 g/dL 1.5-4. 5 Not Available [facility] ([facility]) [address] [facility] [place], [address], 10/07/2023 07:13:30 10/06/20 23 10/07/2023 COMP. METAB OLIC PANEL (14) A/G ratio 1.6 1.2-2. 2 Not Available [facility] ([facility]) [address] [facility] [place], [address], 10/07/2023 07:13:30 10/06/20 23 10/07/2023 COMP. METAB OLIC PANEL (14) bilirubin, total 0.5 mg/dL 0.0-1. 2 Not Available [facility] ([facility]) [address] [facility] [place], [address], 10/07/2023 07:13:30 10/06/20 23 10/07/2023 COMP. METAB OLIC PANEL (14) alkaline phosphatase 83 IU/L 44-121 Not Available [facility] ([facility]) [address] [place], [address], 10/07/2023 07:13:30 10/06/20 23 10/07/2023 COMP. METAB OLIC PANEL (14) AST (SGOT) 16 IU/L 0-40 Not Available [facility] ([facility]) [address] [place], [address], 10/07/2023 07:13:30 10/06/20 23 10/07/2023 COMP. METAB OLIC PANEL (14) ALT (SGPT) 16 IU/L 0-44 Not Available [facility] ([facility]) [address] [place], [address], 10/07/2023 07:13:30 10/06/20 23 10/07/2023 LIPID PANEL cholesterol, total 150 mg/dL 100-19 9 Not Available [facility] ([facility]) [address] [place], [address], 10/07/2023 07:13:31 10/06/20 23 10/07/2023 LIPID PANEL triglyceride s 84 mg/dL 0-149 Not Available [facility] ([facility]) [address] [place], [address], 10/07/2023 07:13:31 10/06/20 23 10/07/2023 LIPID PANEL HDL cholesterol 41 mg/dL >39 Not Available [facility] ([facility]) [address] [place], [address], 10/07/2023 07:13:31 10/06/20 23 10/07/2023 LIPID PANEL VLDL cholesterol mary ellen 16 mg/dL 5-40 Not Available [facility] ([facility]) [address] [facility], [place], [address], 10/07/2023 07:13:31 10/06/20 23 10/07/2023 LIPID PANEL LDL chol calc ([facility]) 93 mg/dL 0-99 Not Available [facility] ([facility]) [address] [facility], [place], [address], 10/07/2023 07:13:31 10/06/20 23 10/07/2023 LIPID PANEL comment: TUNG NUT GROWER Not Available [facility] ([facility]) [address] [facility], [place], [address], 10/07/2023 07:13:31 10/06/20 23 10/07/2023 VITAM IN B12 AND FOLAT E vitamin B12 277 pg/mL 232-12 45 Not Available [facility] ([facility]) [address] [facility], [place], [address], 10/07/2023 07:13:33 10/06/2010/07/2023 VITAM IN B12 AND FOLAT E folate (folic acid), serum 3.6 NG/mL >3.0 A serum folat e isabelle ntrat ion of less than 3.1 ng/mL is consi dered to repre sent clini mary ellen defic iency . Not Available [facility] ([facility]) [address] [facility], [place], [address], 10/07/2023 07:13:33 10/06/20 23 10/07/2023 HEMOG LOBIN A1C hemoglobin A1C 6.0 % 4.8-5. 6 above high normal Predi abete s: 5.7 - 6.4 Diabe katy: >6.4 Glyce usama contr ol for adult s with diabe katy: <7.0 Not Available [facility] ([facility]) [address] [facility], [place], [address], 10/07/2023 07:13:34 10/06/20 23 10/11/2023 COMPL IANCE DRUG WENDI SIS, UR summary report (summary) FINAL ===== ===== ===== ===== ===== ===== ===== ===== ===== ===== ===== ===== ===== === TOXAS SURE COMP DRUG WENDI SIS,U R ===== ===== ===== ===== ===== ===== ===== ===== ===== ===== ===== ===== ===== === Test Resul t Flag Units Drug Prese nt Amphe tamin e 1003 ng/mg creat Amphe tamin e is avail able as a sched ule II presc ripti on drug. Phent ermin e PRESE NT Gabap entin PRESE NT Topir amate PRESE NT ===== ===== ===== ===== ===== ===== ===== ===== ===== ===== ===== ===== ===== === Test Resul t Flag Units Ref Range Creat inine 117 mg/dL >=20 ===== ===== ===== ===== ===== ===== ===== ===== ===== ===== ===== ===== ===== === Decla red Medic ation s: Medic ation list was not provi ded. ===== ===== ===== ===== ===== ===== ===== ===== ===== ===== ===== ===== ===== === For clini mary ellen consu ltati on, pleas e call [phone]. ===== ===== ===== ===== ===== ===== ===== ===== ===== ===== ===== ===== ===== === Not Available [facility] ([facility]) [address] [facility], [place], [address], 10/11/2023 12:09:13 10/06/20 23 10/11/2023 COMPL IANCE DRUG WENDI SIS, UR pdf . Not Available [facility] ([facility]) [address] [facility], [place], [address], 10/11/2023 12:09:13 07/03/20 22 06/27/2002 home sleep study No observ ation record ed. [facility] (Centralized Scheduling) [address], [place], [address], 07/03/2022 16:20:57 07/03/20 22 06/27/2002 home sleep study No observ ation record ed. [facility] (Centralized Scheduling) [facility] [address], [place], [address], 07/03/2022 16:26:43 03/24/20 23 03/24/2023 elect romyo gram + nerve condu ction study No observ ation record ed. [facility] [address], [place], [address], 03/25/2023 19:34:44 11/23/19 24 11/23/2023 XR, elbow , 3 or more view No observ ation record ed. [facility] (Central Scheduling) [address] [place] [address] , [place], [address], 11/24/2023 08:07:39 Result Notes None recorded. Problems Name Problem SNOMED Code Status Onset Date Resolution Date Notes Provider Name and Address Organization Details Recorded Time Essential hypertension 85396051 Active 2016 Caroline Carlos MD [facility] [address], [place], [address], [place] [facility] 2 12:12:21 Morbid obesity 706883923 Active 2016 Caroline Carlos MD [address], [place], [address], [place] [facility] 2 12:12:21 Gastroesophage al reflux disease 133579191 Active 2017 Caroline Carlos MD [address], [place], [address], [place] [facility] 2 12:12:21 Hyperlipidemia 14637943 Active 2017 Caroline Carlos MD [address], [place], [address], [place] [facility] 2 12:12:21 Osteoarthritis of hip 526429486 Active 2018 Caroline Carlos MD [address], [place], [address], [place] [facility] 2 12:12:21 Prediabetes 729882742 Active 2019 Caroline Carlos MD [address], [place], [address], [place] [facility] 2 12:12:21 Obstructive sleep apnea syndrome 37363505 Active 2021 Caroline Carlos MD [address], [place], [address], [place] [facility] 2 09:04:22 Problem Notes Documentation Provider Name and Address Organization Details Recorded Time Sleep Study : [facility] Clinical Note REPORT #: [id number] REPORT STATUS: Signed DATE: 06/28/22 TIME: 1220 PATIENT: WAI MORENO UNIT #: [id number] ROOM/BED: AGE: 57 SEX: M ATTEND: Yamilex HASSAN, Caroline ROBISON AUTHOR: Grant Hansen MD * ALL edits or amendments must be made on the electronic/computer document * Sleep Study Note Sleep Study Note Home sleep study 57-year-old male weight 336, BMI of 44. Presents for home sleep study. [place] of 3. Total monitoring time was 540 minutes Patient had an apnea plus hypopnea index of 23. Patient spent 22% of the night snoring. Patient spent 5.5 minutes less than 90% saturation, lowest saturation recorded was 72%. Patient had a mean heart rate of 71. Impression: Obstructive sleep apnea-hypopnea syndrome G4 7.33 Obesity Recommendations: 1. Weight loss. Avoidance of alcohol and sedatives. No driving motorized vehicles or operating heavy machinery while fatigued, sleepy or drowsy. 2. Begin auto titrating CPAP in a range of 5-20 cm. This auto titrating CPAP unit should be set up per patient's primary care physician/primary care provider /referring physician/referring provider. 3. If patient is intolerant to auto titrating CPAP or if ineffective, then consider return for full CPAP titration study. 4. Follow-up patient's primary care physician/primary care provider/referring physician/referring provider and with a sleep physician if necessary. at 1223 RPT #: [id number] END OF REPORT CC'ed Logic: Attending Provider: YAMILEX GARCIA Referring Provider: YAMILEX GARCIA Consulting Provider: YAMILEX Carlos MD [address], [place], [address], [place] - [facility] 08/23/2022 08:25:32 Procedures Surgical History Date Name Laterality Status Provider Name and Address Organization Details Recorded Time 023 Carpal tunnel surgery completed Caroline Carlos MD [address], [place], [address], [place] - [facility] 06/27/2023 18:24:49 022 I&D completed Caroline Carlos MD [address], [place], [address], [place] - [facility] 04/12/2022 09:50:22 021 Diastolic B/P 80-89 mm Hg completed Yessi Bran [place] - [facility] 11/16/2020 15:14:45 021 Systolic B/P greater than or equal to 140 mm Hg completed Yessi Bran [place] [facility] 11/16/2020 15:14:52 020 Hip Replacement completed Yessi Bran [place] [facility] 11/16/2020 15:12:46 020 Cardiac Cath completed Caroline Carlos MD [address], [place], [address], [place] [facility] 03/16/2020 15:54:20 019 Medication Reconcilliation completed Ute Mckenna [place] - [facility] 09/30/2019 13:08:00 Back Surgery completed Yessi Bran [place] [facility] 05/23/2017 09:52:57 Ankle arthroscopy/surger y completed Yessi Bran [place] [facility] 05/23/2017 09:53:08 Colonoscopy completed Lexus Golden RN [address], [place], [address], [place] [facility] 08/10/2019 11:18:51 Egd esophagogastrc fndoplsty completed Yessi Bran [place] - [facility] 05/23/2017 09:54:10 Imaging Results None recorded. Procedure Notes None recorded. Medical Equipment None Reported. Allergies No known drug allergies Medications Name Sig Start Date Stop Date Status Note LastModified by Organization Details LastModified Time cyclobenz aprine 10 mg tablet 07/10 completed Not Available Not Available Not Available amoxicill in 500 mg capsule TAKE 1 CAPSULE 3 TIMES EACH DAY UNTIL GONE. 05/17 completed Not Available Not Available Not Available gabapenti n 600 mg tablet TAKE 1 TABLET 3 TIMES EACH DAY active Not Available Not Available No t Available atorvasta tin 20 mg tablet Take 1 tablet every day by oral route. 2023 active Not Available Not Available Not Avai lable hydrocodo ne 5 mg-acetam inophen 325 mg tablet 10/06 completed Not Available Not Available Not Available lisinopri l 20 mg tablet TAKE 1 TABLET 1 TIME EACH DAY 2023 active Not Available Not Available Not Avai lable prednison e 20 mg tablet 07/10 completed Not Available Not Available Not Available gabapenti n 400 mg capsule Take 1 capsule 3 times a day by oral route. 05/12 completed dose increase Not Available Not Available Not Available phentermi ne 15 mg capsule TAKE 1 CAPSULE 1 TIME EACH DAY 09/01 completed Not Available Not Available Not Available topiramat e 25 mg tablet TAKE 1 TABLET 2 TIMES EACH DAY 11/14 completed Not Available Not Available Not Available phentermi ne 37.5 mg tablet TAKE 1 TABLET 1 TIME EACH DAY 02/26 completed Not Available Not Available Not Available tramadol 50 mg tablet TAKE 1 TABLET EVERY 6 HOURS NEEDED FOR PAIN. 01/07 completed Not Available Not Available Not Available triamcino lone acetonide 0.1 % topical cream APPLY A THIN FILM TO THE AFFECTED AREA OF SKIN 2 TIMES EACH DAY 07/30 completed Not Available Not Available Not Available phentermi ne 30 mg capsule TAKE 1 CAPSULE 1 TIME EACH DAY 03/07 completed Not Available Not Available Not Available bupropion HCl SR 100 mg tablet,12 hr sustained -release 05/23 completed Not Available Not Available Not Available meloxicam 7.5 mg tablet 03/13 completed Not Available Not Available Not Available [facility] qasim 2 mg tablet 11/16 completed Not Available Not Available Not Available amlodipin e 10 mg tablet TAKE 1 TABLET 1 TIME EACH DAY 2023 active Not Available Not Available Not Avai lable esomepraz ole magnesium 40 mg capsule,d elayed release 07/10 completed Not Available Not Available Not Available triamtere ne 37.5 mg-hydroc hlorothia zide 25 mg tablet 05/23 completed Pt states he was not aware med was sent Not Available Not Available Not Available omeprazol e 20 mg capsule,d elayed release Take 1 capsule every day by oral route. 11/16 completed Not Available Not Available Not Available pravastat in 20 mg tablet TAKE 1 TABLET 1 TIME EACH DAY 04/25 completed Not Available Not Available Not Available mupirocin 2 % topical ointment 08/27 completed Not Available Not Available Not Available triamtere ne 75 mg-hydroc hlorothia zide 50 mg tablet TAKE 1 TABLET 1 TIME EACH DAY 2023 active Not Available Not Available Not Avai lable ergocalci ferol (vitamin D2) 1,250 mcg (50,000 unit) capsule TAKE ONE CAPSULE ONCE A WEEK. 01/06 completed Not Available Not Available Not Available ibuprofen 600 mg tablet TAKE 1 TABLET 3 TIMES EACH DAY WITH FOOD NEEDED FOR PAIN active Not Available Not Available No t Available scopolami ne 1 mg over 3 days transderm al patch Apply 1 patch every 72 hours by transder mal route as needed. active Not Available Not Available No t Available topiramat e 100 mg tablet TAKE 1 TABLET 2 TIMES EACH DAY active Not Available Not Available No t Available phentermi ne 37.5 mg capsule Take 1 capsule every day by oral route. 2023 active Not Available Not Available Not Avai lable naproxen 500 mg tablet 07/10 completed Not Available Not Available Not Available spironola ctone 50 mg tablet Take by oral route for 30 days. 05/23 completed back pain Not Available Not Available Not Available Vitamin B-12 1,000 mcg tablet Take 1 tablet every day by oral route. 2023 active Not Available Not Available Not Avai lable oxycodone 5 mg tablet 11/16 completed Not Available Not Available Not Available Vitamin D3 25 mcg (1,000 unit) capsule Take 1 capsule every day by oral route. 03/07 completed Not Available Not Available Not Available topiramat e 50 mg tablet Take 1 tablet twice a day by oral route. 02/26 completed Not Available Not Available Not Available diclofena c 1 % topical gel APPLY 2 GRAMS 4 TIMES EACH DAY. APPLY TO SINGLE ELBOW, WRIST OR HAND (HAND INCLUDES PALM, FINGERS AND BACK OF HAND) active Not Available Not Available No t Available Vitamin D3 50 mcg (2,000 unit) capsule Take 1 capsule every day by oral route. 2023 active Not Available Not Available Not Avai lable Flucelvax Quad (PF) 60 mcg (15 mcg x 4)/0.5 mL IM syringe Inject by intramus c. route for 1 day. 11/16 completed Not Available Not Available Not Available Mounjaro 2.5 mg/0.5 mL subcutane ous pen injector 2.5 mg SQ qweek x 4 , then 5 mg SQ qweek 07/30 completed Not Available Not Available Not Available Vitals Date Recorded Body height Body mass index (BMI) Body weight Body temperature Respiratory rate Heart rate Oxygen saturation Oxygen saturation in Arterial blood by Pulse oximetry Systolic And Diastolic Provider Name and Address Organization Details Last Updated DateTime 3 185.42 cm 47.4 kg/m2 311645. 71 g 98.5 [degF] 20 /min 73 /min 97 % 97 % 144/90 mm[Hg] Yessi Bran [place] - [facility] 3 08:52:34 Date Recorded Body height Body mass index (BMI) Body weight Body temperature Heart rate Oxygen saturation Oxygen saturation in Arterial blood by Pulse oximetry Respiratory rate Systolic And Diastolic Provider Name and Address Organization Details Last Updated DateTime 3 185.42 cm 47.3 kg/m2 719683. 82 g 97.7 [degF] 74 /min 98 % 98 % 20 /min 142/78 mm[Hg] Yessi Bran [facility] 3 14:04:18 Date Recorded Body height Body mass index (BMI) Body weight Body temperature Heart rate Respiratory rate Oxygen saturation Oxygen saturation in Arterial blood by Pulse oximetry Systolic And Diastolic Provider Name and Address Organization Details Last Updated DateTime 2 185.42 cm 44.5 kg/m2 916586. 78 g 98.9 [degF] 78 /min 20 /min 98 % 98 % 120/74 mm[Hg] Yessi Bran [place] - [facility] 2 08:56:31 Date Recorded Body height Body mass index (BMI) Body weight Body temperature Respiratory rate Heart rate Oxygen saturation Oxygen saturation in Arterial blood by Pulse oximetry Systolic And Diastolic Provider Name and Address Organization Details Last Updated DateTime 3 185.42 cm 48.5 kg/m2 089078. 15 g 98.9 [degF] 20 /min 95 /min 97 % 97 % 130/84 mm[Hg] Yessi Bran [place] - [facility] 3 08:49:58 Social History Question Answer Notes LastModified by Organizat ion Details LastModified Time Tobacco Smoking Status Former Smoker quit about age 43. chews a can a day Yessi bowens [place] - [facility] 05/23/2017 09:51:52 Able To Swim? Yes Information not available 05/23/2017 Do You Have An Advance Directive? No Information not available 11/04/2019 Do You Wear A Helmet When Biking? No Information not available 05/23/2017 Are You Blind Or Do You Have Difficulty Seeing? No Information not available 05/23/2017 What Is Your Level Of Caffeine Consumption? Moderate Information not available 11/04/2019 Are You Deaf Or Do You Have Serious Difficulty Hearing? No Information not available 05/23/2017 Which Illicit Or Recreational Drugs Have You Used? Previous Information not available 05/23/2017 Swimming/diving Yes Informati on not available 05/23/2017 Hard Of Hearing Or Deaf In One Or Both Ears? No Information not available 05/23/2017 Legally Blind In One Or Both Eyes? No Information not available 05/23/2017 Do You Have A Medical Power Of Building Surveyor? No Information not available 05/05/2023 What Was The Date Of Your Most Recent Tobacco Screening? 10/06/2023 Information not available 10/06/2023 What Is Your Relationship Status? Information not available 05/23/2017 Seat Belts Used Routinely Yes Information not available 05/23/2017 Are You Sexually Active? Yes Information not available 05/23/2017 Smoke Alarm In Home Yes Information not available 05/23/2017 Do You Use Sunscreen Routinely? No Information not available 05/23/2017 Has Tobacco Cessation Counseling Been Provided? No Information not available 03/12/2019 On What Date Was Tobacco Cessation Counseling Provided? 10/06/2023 Rglascock Answered No To The Tobacco Cessation Counseling Provided Question On 03/12/2019. Information not available 10/06/2023 Do You Have Difficulty Walking Or Climbing Stairs? No Information not available 05/23/2017 Sex: Unknown Functional Status Question Answer Note LastModified by Organizat ion Details LastModified Time Do you use any illicit or recreational drugs? No Information not available 05/05/2023 What is your level of alcohol consumption? None Information not available 05/23/2017 Are you currently employed? No Information not available 05/23/2017 Do you have transportation difficulties? No Information not available 03/07/2023 Are you able to walk independently without assistance or assistive devices? YESWOREST Information not available 11/04/2019 Do you have difficulty doing errands alone? No Information not available 05/23/2017 Are you able to care for yourself independently? Yes Information not available 05/23/2017 Do you have difficulty dressing, bathing, grooming, or toileting? No Information not available 05/23/2017 Do you or have you ever used e-cigarettes or vape? Former user of electronic cigarettes Information not available 11/04/2019 Mental Status Question Answer Note LastModified by Organization D etails LastModified Time Do you have difficulty concentrating, remembering or making decisions? No Information no t available 05/23/2017 Family History Relationship Description Onset Age of this Age Resolved Age Notes LastModified by Organization Details LastModified Time Mother Heart disease [email or web address] Not available 2016 09:49:54 Mother Malignant neoplasm of lung [email or web address] Not available 2016 09:50:03 Mother Myocardial infarction 55 [email or web address] Not available 05/23 10:12:08 Father Myocardial infarction 56 [email or web address] Not available 05/23 10:11:56 Maternal Grandfather Myocardial infarction [email or web address] Not available 05/23 09:51:33 Maternal Uncle Myocardial infarction 60 [email or web address] Not available 05/23 10:12:20 Medical History No medical history recorded. Immunizations Vaccine Type Date Status Note Provider Nam e and Address Organization Details Recorded Time Influenza, split virus, quadrivalent, preservative 1 completed Janine Rogers null, [place] - [facility] 08/27/2021 13:21:50 Influenza, split virus, quadrivalent, preservative 2 completed Yessi Bran [place] [facility] 08/23/2022 10:22:35 COVID-19, mRNA, LNP-S, bivalent, PF, 50 mcg/0.5 mL or 25mcg/0.25 mL dose 2 completed Yessi Bran null, [place] [facility] 08/23/2022 10:24:20 Influenza, split virus, quadrivalent, preservative 8 completed Not Available [facility] 11/06/2019 03:54:55 Tdap 6 completed Yessi Bath null, [place] - [facility] 05/23/2017 09:48:36 Influenza, split virus, quadrivalent, preservative 3 completed Yessi Bath null[place] [facility] 10/06/2023 17:33:17 Influenza, split virus, quadrivalent, preservative 9 completed Yessi Bath null[place] [facility] 11/04/2019 15:40:23 SARS-COV-2 (COVID-19) vaccine, UNSPECIFIED 1 completed Yessi Bath null[place] [facility] 02/22/2021 14:46:10 SARS-COV-2 (COVID-19) vaccine, UNSPECIFIED 1 completed Yessi Bath null[place] [facility] 02/22/2021 14:46:22 Influenza, split virus, quadrivalent, preservative 8 completed Not Available [facility] [place] 11/06/2019 03:55:24 Past Encounters Encounter ID Performer Location Encounter Start Date Encounter Closed Date Diagnosis/Indication Diagnosis SNOMED-CT Code Diagnosis ICD10 Code Diagnosis IMO Codes Diagnosis Note [id number] Caroline Carlos MD [address] [place] [address] 05/23/2017 09:27:03 05/23/2017 10:36:17 Body mass index 40+ - severely obese 017544533 Z68.43 Essential hypertension 21525251 I10 Edema 043179268 R60.9 Pain of hip region 53539 002 M25.551 Venous stasis 75468152 I 87.8 [id number] Caroline Carlos MD [address] [place] [address] 07/10/2017 14:48:04 07/10/2017 15:37:54 Morbid obesity 804696360 E66.01 Essential hypertension 72861202 I10 Fatigue 50572178 R53.83 Vitamin D deficiency 347 11483 E55.9 Sciatica 25853665 M54.31 Edema 336133843 R60.9 [id number] Caroline Carlos MD [address] [place] [address] 11/14/2017 11:29:08 11/14/2017 12:19:11 Essential hypertension 93931131 I10 Morbid obesity 729402041 E66.01 Gastroesop hageal reflux disease 691820617 K21.9 Sleep apnea 49733203 G47 .30 Hyperglycemia 41251427 R 73.9 Abnormal testosterone 13 6376161 R94.7 Hyperlipidemia 03833804 E78.5 Pain of ri ght hip joint 2440520248 37750 M25.551 Sciatica 98868227 M54.31 Administra tion of influenza vaccine 50708008 Z23 [id number] Caroline Carlos MD [address] [place] [address] 03/13/2018 09:15:13 03/13/2018 09:40:09 Hyperlipidemia 06072399 E78.5 Gastroesop hageal reflux disease 739407743 K21.9 Essential hypertension 58065509 I10 Sciatica 07869985 M54.31 Cobalamin deficiency 190 028188 E53.8 Body mass index 40+ - severely obese 235172148 Z68.43 Osteoarthritis of hip 23 0562035 M16.11 [id number] Caroline Carlos MD [address] [place] [address] 06/18/2018 16:25:05 06/18/2018 17:09:30 Morbid obesity 276341493 E66.01 he has to lose weight. reconsider bariatric surgery Hyperlipidemia 93119568 E78.5 Gastroesop hageal reflux disease 860840190 K21.9 Essential hypertension 23795859 I10 Osteoarthritis of hip 23 3630818 M16.11 Cobalamin deficiency 190 805430 E53.8 [id number] Caroline Carlos MD [address] [place] [address] 08/28/2018 08:40:32 08/28/2018 10:20:29 Sleep apnea 85676810 G47.30 Osteoarthritis of hip 23 4718633 M16.11 Hyperlipidemia 53452328 E78.5 Essential hypertension 66942835 I10 Administra tion of influenza vaccine 00859329 Z23 Endocrine/ metabolic screening 383938939 Z13.228 Cobalamin deficiency 190 620475 E53.8 [id number] Caroline Carlos MD [address] [place] [address] 03/12/2019 10:35:01 03/12/2019 14:46:45 Morbid obesity 024263265 E66.01 he has to lose weight. reconsider bariatric surgery Hyperlipidemia 73596605 E78.5 Essential hypertension 77435697 I10 Osteoarthritis of hip 23 4085169 M16.11 Body mass index 40+ - severely obese 319976653 Z68.43 Prediabetes 620936266 R7 3.03 Vitamin D deficiency 347 60475 E55.9 Screening for malignant neoplasm of prostate 214946727 Z12.5 [id number] Anjelica Howe APRN [address] [place] [address] 09/30/2019 12:57:50 09/30/2019 14:00:13 Gastroesophageal reflux disease 691421027 K21.9 Chest pain 83089018 R07. 9 [id number] Caroline Carlos MD [address] [place] [address] 11/04/2019 15:27:33 11/04/2019 15:58:10 Morbid obesity 324242665 E66.01 he is reconsider ing bariatric surgery again Hyperlipidemia 31501126 E78.5 Gastroesop hageal reflux disease 891155802 K21.9 Essential hypertension 09624053 I10 Osteoarthritis of hip 23 9878503 M16.11 Body mass index 40+ - severely obese 242373039 Z68.43 Prediabetes 754004219 R7 3.03 [id number] Caroline Carlos MD [address] [place] [address] 03/16/2020 15:24:11 03/16/2020 16:25:32 Pre-surgery evaluation 909258282 Z01.818 Osteoarthritis of hip 23 0561685 M16.11 Morbid obesity 865517952 E66.01 he is reconsider ing bariatric surgery again Essential hypertension 06437386 I10 [id number] Caroline Carlos MD [address] [place] [address] 11/16/2020 14:50:39 11/16/2020 15:57:19 Essential hypertension 34851655 I10 Gastroesop hageal reflux disease 089261353 K21.9 Hyperlipidemia 06032218 E78.5 Morbid obesity 669973453 E66.01 he is reconsider ing bariatric surgery again Prediabetes 171540025 R7 3.03 Sleep apnea 51020949 G47 .30 Vitamin B1 2 deficiency (non anemic) 05958554 E53.8 Vitamin D deficiency 347 06030 E55.9 Screening for malignant neoplasm of prostate 069183551 Z12.5 Screening for malignant neoplasm of colon 822562439 Z12.11 Immunization due 2489334 08 Z28.3 encouraged to get shingrix vaccine Osteoarthritis of hip 23 0423843 M16.11 Cobalamin deficiency 190 996527 E53.8 [id number] Caroline Carlos MD [address] [place] [address] 12/21/2020 14:39:55 12/21/2020 15:01:34 Essential hypertension 99311677 I10 Morbid obesity 187505138 E66.01 he is reconsider ing bariatric surgery again Hyperlipidemia 62636395 E78.5 Prediabetes 296275663 R7 3.03 Body mass index 40+ - severely obese 285483281 Z68.43 [id number] Caroline Carlos MD [address] [place] [address] 02/22/2021 14:37:09 02/22/2021 15:05:30 Morbid obesity 450677993 E66.01 he is reconsider ing bariatric surgery again Essential hypertension 13437451 I10 controlled on med Body mass index 40+ - severely obese 853680890 Z68.43 Tenosynovi tis of right radial styloid 4183610131 6537468 M65.4 cont with 2-3 Ibu a day. if not improving - to Ortho Osteoarthritis of hip 23 4780609 M16.11 [id number] Caroline Carlos MD [address] [place] [address] 05/17/2021 15:08:46 05/17/2021 15:42:54 Essential hypertension 76809981 I10 controlled on med Hyperlipidemia 74031571 E78.5 continue statin tx Morbid obesity 999541766 E66.01 he is reconsider ing bariatric surgery again Prediabetes 735928520 R7 3.03 diet and wti loss reviewed Sleep apnea 92231474 G47 .30 Vitamin D deficiency 347 20388 E55.9 continue supplemeta tion Immunization due 9619586 08 Z28.3 encouraged to get shingrix vaccine Osteoarthritis of hip 23 6278878 M16.11 Cobalamin deficiency 190 618258 E53.8 continue supplement ation Sebaceous cyst of skin 663804160 L72.3 he will make an appt if he wants the excised [id number] Caroline Carlos MD [address] [place] [address] 08/27/2021 12:29:47 08/27/2021 14:04:44 Essential hypertension 78000029 I10 controlled on meds Hyperlipidemia 93179686 E78.5 continue statin tx Morbid obesity 926702584 E66.01 increasing phentermin e to 30 mg today Prediabetes 808298055 R7 3.03 last A1c 6.0% 01/05/21 Sleep apnea 65826422 G47 .30 Vitamin B1 2 deficiency (non anemic) 64965626 E53.8 continue supplement ation Vitamin D deficiency 347 62631 E55.9 continue supplement ation Immunization due 2373544 08 Z28.3 encouraged to get shingrix vaccine Osteoarthritis of hip 23 1887157 M16.11 meds help. encouraged to stay active Cobalamin deficiency 190 470950 E53.8 continue supplement ation Long-term drug therapy 694214412 Z79.899 Influenza vaccine needed 5293350595 106 Z23 Reducible umbilical hernia 021365197 K42.9 will continue to watch Skin irritation 48439538 7 L30.9 [id number] Caroline Carlos MD [address] [place] [address] 01/11/2022 08:19:29 01/11/2022 08:54:05 Vitamin D deficiency 81130864 E55.9 he has been off supplement ation - level low at recent check. will restart OTC Cobalamin deficiency 190 003193 E53.8 continue supplement ation Morbid obesity 578468757 E66.01 topriramat e increased to 50 mg bid today. cont phentermin e - reviewed risk of addiction. he is continuing to make dietary changes Osteoarthritis of hip 23 4330879 M16.11 meds help. encouraged to stay active Hyperlipidemia 89910863 E78.5 continue statin tx Prediabetes 768128172 R7 3.03 last A1c 5.6% 01/04/22 Essential hypertension 10787788 I10 controlled on meds [id number] Caroline Carlos MD [address] [place] [address] 04/12/2022 08:41:22 04/12/2022 09:47:04 Sebaceous cyst of skin 445096623 L72.3 very large and deep. advised removed most of cyst wall but with difficulty . packing place b/c the wound was so deep. he will RTC in 3 days to have it rechecked and the packing removed. he is to call or seek emergency help if he has any concerns with it over the weekend. keep clean with soap and water. he can take up to 4 of his Ibu qd for pain [id number] Caroline Carlos MD [address] [place] [address] 04/15/2022 09:35:33 04/15/2022 12:07:51 Abscess of skin and/or subcutaneous tissue 83124731 L02.91 [id number] Caroline Carlos MD [address] [place] [address] 08/23/2022 08:48:34 08/23/2022 11:16:29 Vitamin D deficiency 41973855 E55.9 taking OTC D3 2000 units qd Cobalamin deficiency 190 964149 E53.8 continue supplement ation with 1000 mcg qd Morbid obesity 209546431 E66.01 taking topiramate 25 mg bid (sometimes taking 3 a day). cont phentermin e 30 mg qd. he is continuing to make dietary changes. increasing topiramate to 50 mg bid (and he can take up to 3 a day) today. consider increasing phentermin e - advised the next dose up is the highest dose Osteoarthritis of hip 23 1362012 M16.11 meds help. encouraged to stay active Hyperlipidemia 22674178 E78.5 continue statin tx Prediabetes 134226555 R7 3.03 last A1c 5.6% 01/04/22 Essential hypertension 43317954 I10 controlled on meds Long-term drug therapy 756364665 Z79.899 Reviewed use of controlled substances ; risk of addiction or tolerance, and possible side effects, sarah constipati on and sedation. Patient voiced understand ing. Advised to keep med locked up at home Screening for malignant neoplasm of prostate 091691799 Z12.5 Obstructiv e sleep apnea syndrome 35583626 G47.33 he is back to using CPAP Influenza vaccine needed 1103889217 106 Z23 Bilateral carpal tunnel syndrome 6290566686 9454688 G56.03 Administra tion of SARS-CoV-2 antigen vaccine 505896781 Z23 [id number] Caroline Carlos MD [address] [place] [address] 03/07/2023 08:39:45 03/07/2023 09:28:58 Vitamin D deficiency 29512436 E55.9 taking OTC D3 2000 units qd Cobalamin deficiency 190 227284 E53.8 will restart supplement ation with 1000 mcg qd today Morbid obesity 589066645 E66.01 was taking topiramate 50 mg 2 qd and phentermin e 30 mg qd. it was working for him but seemed to plateau. will increase phentermin e to 37.5 mg qd and advised to take topiramate 1 bid. Osteoarthritis of hip 23 7725732 M16.11 meds help. encouraged to stay active Hyperlipidemia 04042845 E78.5 continue pravastati n 20 mg qd Prediabetes 998820176 R7 3.03 last A1c 5.6% 01/04/22 Essential hypertension 03958139 I10 controlled on meds Long-term drug therapy 659775699 Z79.899 Reviewed use of controlled substances ; risk of addiction or tolerance, and possible side effects, sarah dizziness, trouble sleeping or being too sleepy. Patient voiced understand ing. Advised to keep med locked up at home Obstructiv e sleep apnea syndrome 76042446 G47.33 he is back to using CPAP most nights Bilateral carpal tunnel syndrome 6379364022 7478546 G56.03 given splint and referred to ortho last Aug [id number] Caroline Carlos MD [address] [place] [address] 05/05/2023 13:48:59 05/05/2023 14:27:01 Vitamin D deficiency 36289411 E55.9 taking OTC D3 2000 units qd Cobalamin deficiency 190 375321 E53.8 taking supplement al B12 1000 mcg qd Morbid obesity 530463320 E66.01 taking topiramate 50 mg 2 qd and phentermin e 37.5 mg qd. not doing too well with above. will send [facility] today and see what happens. he knows ins may not cover it. reviewed the medication , and possible SE's, sarah nausea Osteoarthritis of hip 23 2561699 M16.11 ibu and gabapentin help. encouraged to stay active Hyperlipidemia 30937537 E78.5 started atorvastat in 20 mg qd Prediabetes 111175834 R7 3.03 last A1c 5.7% 03/07/23 Essential hypertension 07371623 I10 controlled on meds Long-term drug therapy 004535566 Z79.899 Reviewed use of controlled substances ; risk of addiction or tolerance, and possible side effects, sarah dizziness, trouble sleeping or being too sleepy. Patient voiced understand ing. Advised to keep med locked up at home Obstructiv e sleep apnea syndrome 75214511 G47.33 he is back to using CPAP most nights Bilateral carpal tunnel syndrome 6273755150 6208527 G56.03 referred to Ortho [id number] Caroline Carlos MD [address] [place] [address] 10/06/2023 08:41:34 10/06/2023 11:00:24 Vitamin D deficiency 93647875 E55.9 taking OTC D3 2000 units qd Cobalamin deficiency 190 944763 E53.8 taking supplement al B12 1000 mcg qd Morbid obesity 219549042 E66.01 taking topiramate 50 mg 2 qd and phentermin e 37.5 mg qd.. will try increasing topiramate to 100 mg bid today encouraged him to call his ins co to see if they will cover any of the GLP1's for weight loss Osteoarthritis of hip 23 7176612 M16.11 ibu and gabapentin help. encouraged to stay active Hyperlipidemia 71985887 E78.5 taking atorvastat in 20 mg qd Prediabetes 483819536 R7 3.03 last A1c 5.7% 03/07/23 Essential hypertension 79315158 I10 controlled on meds Long-term drug therapy 346327623 Z79.899 Reviewed use of controlled substances ; risk of addiction or tolerance, and possible side effects, sarah dizziness, trouble sleeping or being too sleepy. Patient voiced understand ing. Advised to keep med locked up at home Obstructiv e sleep apnea syndrome 89155086 G47.33 he is back to using CPAP most nights Immunization advised 310 218710 Z71.9 Influenza vaccine needed 6934261040 106 Z23 Chronic constipation 236 234691 K59.09 he will try OTC miralax. it is not much of a problems Administra tion of SARS-CoV-2 antigen vaccine 095050662 Z23 Health Concerns Section Related Observation LastModified by Organization Detai ls LastModified Time None Recorded Concern Status LastModified by Organization Details LastModified Time None Recorded Advance Directives Directive N: Payers Insurance Date Sequence Insurance Name Policy Number Policy Clement Covered Member ID Clement Member ID Guarantor Name 11/14/2023 1 [place]MEDICARE REPLACEMENT HMO) [id number] Wai Moreno [id number] Wai Moreno 10/06/2023 1 [place] Wai Moreno [id number] Wai Moreno 10/06/2023 1 [place] Wai Moreno [id number] Wai Moreno 10/06/2023 [employer] [place] - [facility] (MEDICARE) Wai Moreno [id number] Wai Moreno 11/14/2023 2 [place] [employer] - FFS/TRADITIONA L Wai Moreno [id number] Wai Moreno Notes Date Note Type Note Provider Name and Address Organization Details Recorded Time 04/15/2022 text/html ROS as noted in the HPI here to have packing checked in large abscess in upper back Marilu Nunes MD [address], [place], [address], [facility] - [facility] 04/16/2022 19:04:47 08/23/2022 text/html here for f/u and labs he has had a stressful couple months - 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 restarted CPAP recently taking topiramate and phentermine in the morning and topiramate in the evening. it doesn't seem like it has been working as well as it used to his carpal tunnel B is getting worse. will wake him at night and a problem with driving. will have to shake them out. 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 numb at finger tips and on sides of finger taking Ibu 600 mg tid. not wearing wrist splints. had abnormal EMG yrs ago he has cut back on his portions, but not changed what he is eating. no time to exercise. he is building a garage he has been walking more. getting more active over time. taking B12 and vit D 2000 units qd Caroline Carlos MD [address], [place], [address], [facility] - [facility] 08/23/2022 09:49:31 03/07/2023 text/html here for f/u increased topiramate to 50 mg bid last visit - but he has been out of it and phentermine for about 3 months they did work for him - he lost weight but he can plateaued. now he has regained off the meds referred to ortho and prescribed splint last visit for B CTS. they were going to do an EMG - never was scheduled he has cut back on his portions, but not changed what he is eating. no time to exercise taking vit D 2000 units qd; not B12 Caroline Carlos MD [address], [place], [address], [facility] - [facility] 03/07/2023 09:19:17 05/05/2023 text/html here for f/u last visit stop pravastatin and started atorvastatin 20 mg qd increased phentermine to 37.5 mg qd last visit - no weight change eating about the same. but he has been less active after work. he feels drained . driving a lot without much sleep referred to ortho and prescribed splint for B CTS. abnl EMG. appt at the end of the month he has cut back on his portions, but not changed what he is eating. no time to exercise taking vit D 2000 units qd and B12 Caroline Carlos MD [address], [place], [address], [facility] - [facility] 05/05/2023 14:28:44 10/06/2023 text/html here for f/u last visit prescribed Mounjaro for wt loss, as he wasn't improving on topiramate/phenterm ine. ins wouldn't cover it, so back to topiramate 50 mg bid/phentermine 37.5 mg qd - he thinks his weight would be worse without it. he wonders about increasing the dose he has only gone to the BR q2-3 days since he has been on it. when he doesn't have it he will go a lot. he is not uncomfortable but he feels like he is FOS he has had CTS release on the L - not happy with the result not eating as well and not as active as he was taking vit D 2000 units qd and B12 Caroline Carlos MD [address], [place], [address], [place] [facility] 10/06/2023 09:41:25
[2025-08-23 04:14] LABS: Hepatitis B Surface Antigen Negative (Negative)
== END 2025-08-19 23:59 | disposition home or self-care (01) ==
LOC: LAB.DROPOF 08-22 09:56
PROVIDERS: PCP Nurse Practitioner Family; Visit Provider Nurse Practitioner Family
DX: G47.30 Sleep apnea, unspecified (principal); R73.03 Prediabetes; I10 Essential (primary) hypertension; Z11.59 Encounter for screening for other viral diseases; Z11.4 Encounter for screening for human immunodeficiency virus [HIV]
CPT/HCPCS: 80053; 80061; 83036; 84443; 85025; 86803; 87340; 87389

== ENCOUNTER 2025-10-18 08:55 | Outpatient (CLI) | payer MEDICARE, MEDICAID, SELFPAY ==
--- OUTSIDE RECORDS SUMMARY | 2025-09-27 00:24 | XMS_ITS | Continuity of Care Document ---
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 Name Role Phone YARA RENEE Unavailable YARA RENEE Primary Attending YARA RENEE Primary Care YARA RENEE Admitting [phone] ALLERGIES AND ADVERSE REACTIONS ALLERGIES AND ADVERSE REACTIONS Code System Allergy Substance Adverse Reaction Date Reaction (Severity) Comment Status Reported By Updated By No Known Allergies [email or web address] on February 04, 2025 2:02:43 PM [place] RESULTS Patient: MYRNA CARRENO Date of : June [birth year] LABORATORY RESULTS Information is not available LABORATORY NARRATIVE RESULTS Information is not available RADIOLOGY RESULTS ORDER 100: CHEST PA AND LAT (LOINC: 64287-0) ORDER DATE: September 25, 2025 4:33:00 PM [facility] PERFORMING LAB: [address] [id number] Final Result Date: September 26, 2025 12:24:49 PM UTC [address] [address] Name: WAI NORRIS Exam Date: 09/25/2025 : 1965 Age 60 years Gender: M Physician: YARA RENEE Facility: [facility] HSV: Outpatient Exam: CHEST PA AND LAT PROCEDURE: XR CHEST 2 VIEWS, 09/25/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 COMPARISON: September 24, 2019 TECHNIQUE: PA and lateral views of the chest FINDINGS: Lines/Tubes: None Lungs: Right perihilar and basilar interstitial prominence, nonspecific for superimposed normal structures versus evolving infection or inflammation. Punctate density to the left mid lung field may represent calcified granuloma, measuring up to 4 mm. Hypoinflation. No pneumothorax. No effusion. Mediastinum: Cardiomediastinal silhouette is within normal limits. Bones: Unremarkable. Soft tissues: Unremarkable. IMPRESSION: Right perihilar and basilar interstitial prominence, nonspecific for superimposed normal structures versus evolving infection or inflammation. Consider correlation with CT as clinically indicated. Electronically signed by: Althea Acosta MD 09/26/2025 07:26 AM [facility] Dictated By: ALTHEA ACOSTA Transcribed By: Transcribed On: 09/26/2025 7:24 AM Electronically signed by: ALTHEA ACOSTA 09/26/2025 Thank you for referring WAI NORRIS to [facility]. Legally authenticated by KARLA Slater 2025-09-26 07:24:49 PATHOLOGY NARRATIVE RESULTS Information is not available MICROBIOLOGY RESULTS No Micro Labs/Results Exist for Patient BLOOD ADMIN RESULTS Information is not available MEDICATIONS HOME MEDICATIONS Status RXNORM NDC Medication Dose Route Frequency Dates Comments Reported By Updated By Drug Treatment Unknown DISCHARGE MEDICATIONS Status RXNORM NDC Medication Dose Route Frequency Dates Dis pense Data Comments Physician Updated By No Discharge Medication Info rmation Available INPATIENT MEDICATIONS Status RXNORM NDC Medication Dose Route Frequency Rat e Quantity Dates Indication Dispense Data Comments Physician Updated By No Inpatient Medication Info rmation Available SOCIAL HISTORY SOCIAL HISTORY - Smoking Status SNOMED-CT Social History Element Description Effective Dates Offered Cessation Comment Updated By [id number] Historical Tobacco smoking status Never Smoked [id number] on February 04, 2025 2:02:52 PM [facility] SOCIAL HISTORY - Gender Sex: Male SOCIAL HISTORY - Status : status i nformation is not available Intention in Next Year: intention information is not available SOCIAL HISTORY - Assessments Code System Description Status Date Value of Assessment Updated By Comment Assessment Information is no t available SOCIAL HISTORY - [place] Affiliation [place] information is not av ailable SOCIAL HISTORY - Legal Sex Legal Sex : Male (finding) SOCIAL HISTORY - Sexual Behavior Sexual Orientation Gender Identity SNOMED-CT Description SNO MED -CT Description Activity Level No of Partners Partner Type UpdatedBy Information is not available SOCIAL HISTORY - Occupation Occupation information is no t available ENCOUNTERS ENCOUNTER INFORMATION Reason for Visit COUGH, RIGHT MID PARISH K PAIN Admission September 25, 2025 4:24:00 PM [facility] [address] [facility] [address] Discharge September 25, 2025 4:24:00 PM [facility] DISCHARGED TO HOME OR SELF CARE ENCOUNTER DIAGNOSES Notes information is not werner ilable. Code System Diagnosis Onset Date Diagnosis information is not available. ABSTRACT DIAGNOSES Code System Diagnosis Updated By Abatement Date R05.9 ICD10 COUGH, UNSPECIFIED [id number] o n September 27, 2025 5:23:56 AM [facility] M54.6 ICD10 PAIN IN THORACIC SPINE [id number] 40 on September 27, 2025 5:23:56 AM [facility] R05.9 ICD10 COUGH, UNSPECIFIED [id number] o n September 27, 2025 5:23:56 AM [facility] M54.6 ICD10 PAIN IN THORACIC SPINE [id number] 40 on September 27, 2025 5:23:56 AM [facility] CARE TEAM Care Filtration Plant Mechanic Role YARA RENEE Referring YARA RENEE Primary Attendin g YARA RENEE Primary Care YARA RENEE Admitting 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 Role on Team Location Telecom Status Start Date End Gautam e Updated By [facility] [address], [place], [address] normal September 25, 2025 5:00:00 AM [facility] September 25, 2025 4:24:00 PM [facility] [id number] on September 25, 2025 4:27:15 PM [facility] THEL[facility] Referring [address], [place], [address] normal September 25, 2025 5:00:00 AM [facility] September 25, 2025 4:24:00 PM [facility] [id number] on September 25, 2025 4:27:15 PM [facility] THELMA [facility] Attending [address], [place], [address] normal September 25, 2025 5:00:00 AM [facility] September 25, 2025 4:24:00 PM [facility] [id number] on September 25, 2025 4:27:15 PM [facility] FRANAlfieKHLOE [facility] Admitting [address], [place], [address] normal September 25, 2025 5:00:00 AM [facility] September 25, 2025 4:24:00 PM [facility] [id number] on September 25, 2025 4:27:15 PM [facility] INSURANCE PROVIDERS INSURANCE PROVIDER Coverage Status - Effective Date Coverage Type Payor Plan Order Relationship To Subscriber Insurance Plan No Insurance Plan 2024-10-20 M PRIMARY 18 [phone] [facility]
--- OUTSIDE RECORDS SUMMARY | 2025-10-18 08:59 | XMS_ITS | Encounter Summary ---
Author Organization [employer] ([place], [place], [place], [place], [place]) Address [address] [place] [address] Care Team Providers Care Volcanology Professor Name Role Phone Unavailable Primary Care Provider Unavailabl e Encounter Details Date Type Department Care Team (Late st Contact Info) Description 01/07/2020 Transcribed Document [facility] [place] [address] [place] [address] ProviderGabe MD [address] [place] [address] Social History Tobacco Use Types Packs/Day Years Used Date Smoking Tobacco: Never Assessed Sex and Gender Information Value Date Recorded Sex Assigned at Not on file Legal Sex Male 3:36 PM CDT Gender Identity Not on file Sexual Orientation Not on file documented as of this encounter Miscellaneous Notes * [employer]ner Conversion Note - Gabe ProviderMD - 01/07/2020 9:55 AM CDT Pre Procedure Adult Entered On: 01/07/2020 10:00 EDT Performed On: 01/07/2020 9:55 EDT by JOLENE GRIMALDO RN Height and Weight, Clinical Dosing Height Source : Measured Height Entry Format : [place] Height, Feet : 6 ft(Converted to: 183 cm, 72 Inch) Height, Inches : 1 Inch(Converted to: 0 ft 1 Inch, 2.54 cm) Clinical Height : 185.42 cm Weight Source : Standing scale Weight Entry Format : [place] Clinical Dosing Weight : 179.55 kg Weight, Pounds : 395 lb Weight, Ounces : 0 oz Body Surface Area (BSA) : 2.88 m2 Body Mass Index : 52.2 kg/m2 (>HHI) [place] Body Weight : 79 kg JOLENE GRIMALDO RN - 01/07/2020 9:55 EDT Health Histories Smoking Status : Former smoker, quit more than 30 days ago Smokeless Tobacco Status : Never JOLENE GRIMALDO RN - 01/07/2020 9:55 EDT Social History (As Of: 01/07/2020 10:00:35 EDT) Tobacco: Former smoker, quit more than 30 days ago Smoking Status. Years of Use: 25. Last Used: quit smoking 2011. (Last Updated: 01/07/2020 09:56:56 EDT by JOLENE GRIMALDO, RN) Alcohol: Alcohol Use History No. (Last Updated: 01/07/2020 09:57:05 EDT by JOLENE GRIMALDO, RN) Infectious Disease History COVID19 Screening : No Physical contact outside [place] in the last 30 days : No Infectious Disease History : None Tuberculosis Symptoms : None JOLENE GRIMALDO RN - 01/07/2020 9:55 EDT Anesthesia/Transfusion History Family History of Anesthesia Reaction : No prior transfusion(s) Blood Transfusion Acceptable to Patient : Yes Transfusion History : Prior anesthesia without reaction Family History of Anesthesia Reaction : None JOLENE GRIMALDO RN - 01/07/2020 9:55 EDT Functional Assessment Living Situation : Home Patient Lives With : Spouse Current Home Treatments : CPAP JOLENE GRIMALDO RN - 01/07/2020 9:55 EDT [place] Suicide Severity Rating Scale (C-SSRS) CSSRS Past Month Wish to be : No CSSRS Past Month Suicidal Thoughts : No CSSRS Lifetime Suicide Behavior : No Suicide Severity Rating Score : 0 Suicide Severity Rating : No Additional Care Required at this time JOLENE GRIMALDO RN - 01/07/2020 9:55 EDT Psychosocial History Currently in Unsafe Situation : No JOLENE GRIMALDO RN - 01/07/2020 9:55 EDT Advance Directive Patient has Advance Directive *Q : No, patient refuses Advance Directive information JOLENE GRIMALDO RN - 01/07/2020 9:55 EDT Teaching/Learning Assessment Barriers To Learning : None evident Individuals Taught : Patient, Spouse Readiness to Learn : Cooperative Readiness to Learn : Demonstration, Explanation Learning Style Preferences Patient : Demonstration, Verbal explanation Learning Style Preferences Family : Demonstration, Verbal explanation JOLENE GRIMALDO RN - 01/07/2020 9:55 EDT General Info Want Family/Rep/Phys Notified of Admit : No Emergency Contact #1 : Kaylin Emergency Contact #1 Emergency Contact #1 Relationship : Emergency Contact #2 : x Emergency Contact #2 Phone Number : x Emergency Contact #2 Relationship : x Primary Language : Citizen Of [place] Communication Barrier : None JOLENE GRIMALDO RN - 01/07/2020 9:55 EDT Sleep Apnea Risk Assmt BiPAP/CPAP Ordered for Home Use : Yes Hx of Obstructive Sleep Apnea Diagnosis : Yes BiPAP/CPAP Used at Home : Yes Age over 50 Years Old : Yes Gender Male : Yes JOLENE GRIMALDO RN - 01/07/2020 9:55 EDT [place] Scale [place] Sensory Perception : No impairment [place] Moisture : Rarely moist [place] Activity : Walks frequently [place] Mobility : No limitation [place] Nutrition : Adequate [place] Friction and Shear : No apparent problem [place] Score : 22 JOLENE GRIMALDO RN - 01/07/2020 9:55 EDT Pain Assessment Pain Assessment : Initial assessment Pain Scale Used : 0-10 Scale Location : Hip, right Onset : Chronic JOLENE GRIMALDO RN - 01/07/2020 9:55 EDT Fall Risk Scales ABCs Fall Injury Risk Identification : None [place] Hx Falls Immediate/Within 3 Months : No [place] Secondary Diagnosis : No [place] Use of Ambulatory Aid : Bed rest/Nurse assist [place] IV Therapy or IV Access : Yes [place] Gait/Transferring : Normal, bedrest, immobile [place] Mental Status : Oriented to own ability [place] Fall Risk Score : 20 [place] Fall Scale Risk Level : 0-24 Low Risk [place] Fall Interventions : Adequate lighting, Assistive devices within reach, Bed in low position, Call device within reach, Fall prevention handout/education per facility policy, Hourly comfort/safety rounds, Non-slip footwear, Personal items within reach, Reinforced to call for assistance before getting out of bed, Room free of clutter/spills, Upper side-rails up, Wheels locked, Wires/Cords secured JOLENE GRIMALDO RN - 01/07/2020 9:55 EDT Valuables and Belongings Valuables and Belongings : Clothing Clothing : Common streetwear Clothing Disposition : Bedside JOLENE GRIMALDO RN - 01/07/2020 9:55 EDT Pain Scale Intensity : 6 JOLENE GRIMALDO RN - 01/07/2020 9:55 EDT Image 4 - Images currently included in the form version of this document have not been included in the text rendition version of the form. documented in this encounter Plan of Treatment Not on file documented as of this encounter Visit Diagnoses Not on filedocumented in this encounter
--- OUTSIDE RECORDS SUMMARY | 2025-10-18 08:59 | XMS_ITS | Encounter Summary ---
Author Organization [employer] ([place], [place], [place], [place], [place]) Address [address] [place] [address] Care Team Providers Care Jewelsmith Name Role Phone Unavailable Primary Care Provider Unavailabl e Encounter Details Date Type Department Care Team (Late st Contact Info) Description 04/17/[address] [facility] [place] [address] [place] [address] ProviderGabe MD [address] [place], [place] [id number] Social History Tobacco Use Types Packs/Day Years Used Date Smoking Tobacco: Never Assessed Sex and Gender Information Value Date Recorded Sex Assigned at Not on file Legal Sex Male 3:36 PM CDT Gender Identity Not on file Sexual Orientation Not on file documented as of this encounter Miscellaneous Notes * Cerner Conversion Note - Historical ProviderMD - 04/17/2020 3:07 PM CDT Stroke/Warfarin Instructions Entered On: 04/17/2020 15:07 EDT Performed On: 04/17/2020 15:07 EDT by Jacki Carlson RN Stroke/Warfarin Instructions Stroke/TIA Discharge Ins : N/A Warfarin Discharge Ins : N/A Jacki Carlson RN - 04/17/2020 15:07 EDT Electronically signed by Jamila [facility] Conversion Sawmill Hand Cerner at 02/06/2023 3:07 PM CDT documented in this encounter Plan of Treatment Not on file documented as of this encounter Visit Diagnoses Not on filedocumented in this encounter
--- OUTSIDE RECORDS SUMMARY | 2025-10-18 08:59 | XMS_ITS | Encounter Summary ---
Author Organization [employer] ([place], [place], [place], [place], [place]) Address [address] [place] [address] Care Team Providers Care Registered Nurse Renal Name Role Phone Unavailable Primary Care Provider Unavailabl e Encounter Details Date Type Department Care Team (Late st Contact Info) Description 01/07/2020 Transcribed Document [facility] [address] [place] [address] ProviderGabe MD [address] [place] [address] Social History Tobacco Use Types Packs/Day Years Used Date Smoking Tobacco: Never Assessed Sex and Gender Information Value Date Recorded Sex Assigned at Not on file Legal Sex Male 3:36 PM CDT Gender Identity Not on file Sexual Orientation Not on file documented as of this encounter Miscellaneous Notes * Cerner Conversion Note - Gabe Hill MD - 01/07/2020 3:34 PM CDT [facility] [place] [address] WAI MORENO :1965 Visit Time:01/07/2020 Your Visit Summary Your Care Team Admitting Physician - PRESLEY SANFORD MD-CAR Attending Physician - PRESLEY SANFORD MD-CAR Primary Care Physician - JOSE KAMINSKI (REF), -[facility] Referring Physician - PRESLEY SANFORD MD-CAR Your Diagnosis Unstable angina, Unstable angina Discharge Vitals Temperature 36.4 ??C Heart Rate (Monitored) 60 Respiratory Rate 16 Blood Pressure 122/66 What to do next Instructions From Your Care Team Diet after Discharge: , heart heathy diet, _ Fluid Restriction after Discharge: _ Activity after Discharge: _, Rest and relax today, No strenuous activity Driving after Discharge: Do not drive for 24 hours May Return to Work/School: Showering/Bathing: May shower in 24 hours, No tub bathing, soaking or swimming Follow-Up Appointments Follow Up with PRESLEY SANFORD When Within 2 to 4 weeks Where: [address] [facility] [address] [place] [id number] Business (1) Medications What How Much When Instructions Next Dose amLODIPine (amLODIPine 10 mg oral tablet) Oral Every Day aspirin (aspirin 81 mg oral tablet) Oral Every Day gabapentin (gabapentin 600 mg oral tablet) 1 Tablet(s) Oral Three Times A Day hydrochlorothiazide-triamterene (hydroCHLOROthiazide-triamterene 50 mg-75 mg oral tablet) Oral Every Day lisinopril (lisinopril 20 mg oral tablet) Oral Every Day PRAVAstatin (pravastatin 20 mg oral tablet) Oral Every Day Take your medications faithfully. Do NOT skip medication. Do NOT stop taking medications without the direction of a physician. Carry a list of your medications with you at all times, and take this medication list with you to your first follow up visit. Report any side effects. Avoid herbal remedies unless discussed with your physician. As part of your treatment plan, your physician may have prescribed a limited course of a controlled substance. This medication may be given to help people with moderate or severe pain or for other medical conditions, but there are risks involved with treatment. Common side effects may include nausea, constipation, drowsiness, sweating, itching, dry mouth, and rash. More serious side effects may include cognitive and motor impairment, like problems with thinking, concentrating, alertness, and movement (e.g. slowed reflexes), and driving and operating heavy machinery can be dangerous. It is important for you to talk to your physician if you have these side effects or questions. These controlled substances can produce physical dependence and be habit-forming if taken for an extended period of time, which means that the body has gotten used to them and may experience withdrawal symptoms if they are abruptly stopped. Withdrawal symptoms can include runny nose, sweating, goose bumps, diarrhea, abdominal cramping, rapid heartbeat, difficulty sleeping, and nervousness. Please dispose of unused and medications per your retail pharmacy guidance. Allergies No Known Allergies Immunizations This Visit No Immunizations Found Education Materials Moderate Conscious Sedation, Adult, Care After These instructions provide you with information about caring for yourself after your procedure. Your health care provider may also give you more specific instructions. Your treatment has been planned according to current medical practices, but problems sometimes occur. Call your health care provider if you have any problems or questions after your procedure. What can I expect after the procedure? After your procedure, it is common: ??? To feel sleepy for several hours. ??? To feel clumsy and have poor balance for several hours. ??? To have poor judgment for several hours. ??? To vomit if you eat too soon. Follow these instructions at home: For at least 24 hours after the procedure: ??? Do not: ? Participate in activities where you could fall or become injured. ? Drive. ? Use heavy machinery. ? Drink alcohol. ? Take sleeping pills or medicines that cause drowsiness. ? Make important decisions or sign legal documents. ? Take care of children on your own. ??? Rest. Eating and drinking ??? Follow the diet recommended by your health care provider. ??? If you vomit: ? Drink water, juice, or soup when you can drink without vomiting. ? Make sure you have little or no nausea before eating solid foods. General instructions ??? Have a responsible adult stay with you until you are awake and alert. ??? Take arum-lwx-proykxm and prescription medicines only as told by your health care provider. ??? If you smoke, do not smoke without supervision. ??? Keep all follow-up visits as told by your health care provider. This is important. Contact a health care provider if: ??? You keep feeling nauseous or you keep vomiting. ??? You feel light-headed. ??? You develop a rash. ??? You have a fever. Get help right away if: ??? You have trouble breathing. This information is not intended to replace advice given to you by your health care provider. Make sure you discuss any questions you have with your health care provider. Document Released: 07/27/2014 Document Revised: 03/10/2017 Document Reviewed: 01/25/2017 [employer] Patient Education ?? 2019 [employer] Coronary Artery Disease, Male Coronary artery disease (CAD) is a condition in which the arteries that lead to the heart (coronary arteries) become narrow or blocked. The narrowing or blockage can lead to decreased blood flow to the heart. Prolonged reduced blood flow can cause a heart attack (myocardial infarction or [place]). This condition may also be called coronary heart disease. Because CAD is the leading cause of in men, it is important to understand what causes this condition and how it is treated. What are the causes? CAD is most often caused by atherosclerosis. This is the buildup of fat and cholesterol (plaque) on the inside of the arteries. Over time, the plaque may narrow or block the artery, reducing blood flow to the heart. Plaque can also become weak and break off within a coronary artery and cause a sudden blockage. Other less common causes of CAD include: ??? A blood clot or a piece of a blood clot or other substance that blocks the flow of blood in a coronary artery (embolism). ??? A tearing of the artery (spontaneous coronary artery dissection). ??? An enlargement of an artery (aneurysm). ??? Inflammation (vasculitis) in the artery wall. What increases the risk? The following factors may make you more likely to develop this condition: ??? Age. Men over age 45 are at a greater risk of CAD. ??? Family history of CAD. ??? Gender. Men often develop CAD earlier in life than women. ??? High blood pressure (hypertension). ??? Diabetes. ??? High cholesterol levels. ??? Tobacco use. ??? Excessive alcohol use. ??? Lack of exercise. ??? A diet high in saturated and trans fats, such as fried food and processed meat. Other possible risk factors include: ??? High stress levels. ??? Depression. ??? Obesity. ??? Sleep apnea. What are the signs or symptoms? Many people do not have any symptoms during the early stages of CAD. As the condition progresses, symptoms may include: ??? Chest pain (angina). The pain can: ? Feel like crushing or squeezing, or like a tightness, pressure, fullness, or heaviness in the chest. ? Last more than a few minutes or can stop and recur. The pain tends to get worse with exercise or stress and to fade with rest. ??? Pain in the arms, neck, jaw, ear, or back. ??? Unexplained heartburn or indigestion. ??? Shortness of breath. ??? Nausea or vomiting. ??? Sudden light-headedness. ??? Sudden cold sweats. ??? Fluttering or fast heartbeat (palpitations). How is this diagnosed? This condition is diagnosed based on: ??? Your family and medical history. ??? A physical exam. ??? Tests, including: ? A test to check the electrical signals in your heart (electrocardiogram). ? Exercise stress test. This looks for signs of blockage when the heart is stressed with exercise, such as running on a treadmill. ? Pharmacologic stress test. This test looks for signs of blockage when the heart is being stressed with a medicine. ? Blood tests. ? Coronary angiogram. This is a procedure to look at the coronary arteries to see if there is any blockage. During this test, a dye is injected into your arteries so they appear on an X-ray. ? Coronary artery CT scan. This CT scan helps detect calcium deposits in your coronary arteries. Calcium deposits are an indicator of CAD. ? A test that uses sound waves to take a picture of your heart (echocardiogram). ? Chest X-ray. How is this treated? This condition may be treated by: ??? Healthy lifestyle changes to reduce risk factors. ??? Medicines such as: ? Antiplatelet medicines and blood-thinning medicines, such as aspirin. These help to prevent blood clots. ? Nitroglycerin. ? Blood pressure medicines. ? Cholesterol-lowering medicine. ??? Coronary angioplasty and stenting. During this procedure, a thin, flexible tube is inserted through a blood vessel and into a blocked artery. A balloon or similar device on the end of the tube is inflated to open up the artery. In some cases, a small, mesh tube (stent) is inserted into the artery to keep it open. ??? Coronary artery bypass surgery. During this surgery, veins or arteries from other parts of the body are used to create a bypass around the blockage and allow blood to reach your heart. Follow these instructions at home: Medicines ??? Take qogl-tea-sdypywd and prescription medicines only as told by your health care provider. ??? Do not take the following medicines unless your health care provider approves: ? NSAIDs, such as ibuprofen, naproxen, or celecoxib. ? Vitamin supplements that contain vitamin A, vitamin E, or both. Lifestyle ??? Follow an exercise program approved by your health care provider. Aim for 150 minutes of moderate exercise or 75 minutes of vigorous exercise each week. ??? Maintain a healthy weight or lose weight as approved by your health care provider. ??? Learn to manage stress or try to limit your stress. Ask your health care provider for suggestions if you need help. ??? Get screened for depression and seek treatment, if needed. ??? Do not use any products that contain nicotine or tobacco, such as cigarettes, e-cigarettes, and chewing tobacco. If you need help quitting, ask your health care provider. ??? Do not use illegal drugs. Eating and drinking ??? Follow a heart-healthy diet. A dietitian can help educate you about healthy food options and changes. In general, eat plenty of fruits and vegetables, lean meats, and whole grains. ??? Avoid foods high in: ? Sugar. ? Salt (sodium). ? Saturated fat, such as processed or fatty meat. ? Trans fat, such as fried foods. ??? Use healthy cooking methods such as roasting, grilling, broiling, baking, poaching, steaming, or stir-frying. ??? Do not drink alcohol if your health care provider tells you not to drink. ??? If you drink alcohol: ? Limit how much you have to 0???2 drinks per day. ? Be aware of how much alcohol is in your drink. In the [place] one drink equals one 12 oz bottle of beer (355 mL), one 5 oz glass of wine (148 mL), or one 1?? oz glass of hard liquor (44 mL). General instructions ??? Manage any other health conditions, such as hypertension and diabetes. These conditions affect your heart. ??? Your health care provider may ask you to monitor your blood pressure. Ideally, your blood pressure should be below 130/80. ??? Keep all follow-up visits as told by your health care provider. This is important. Get help right away if: ??? You have pain in your chest, neck, ear, arm, jaw, stomach, or back that: ? Lasts more than a few minutes. ? Is recurring. ? Is not relieved by taking medicine under your tongue (sublingual nitroglycerin). ??? You have profuse sweating without cause. ??? You have unexplained: ? Heartburn or indigestion. ? Shortness of breath or difficulty breathing. ? Fluttering or fast heartbeat (palpitations). ? Nausea or vomiting. ? Fatigue. ? Feelings of nervousness or anxiety. ? Weakness. ? Diarrhea. ??? You have sudden light-headedness or dizziness. ??? You faint. ??? You feel like hurting yourself or think about taking your own life. These symptoms may represent a serious problem that is an emergency. Do not wait to see if the symptoms will go away. Get medical help right away. Call your local emergency services (911 in the [place] Do not drive yourself to the hospital. Summary ??? Coronary artery disease (CAD) is a condition in which the arteries that lead to the heart (coronary arteries) become narrow or blocked. The narrowing or blockage can lead to a heart attack. ??? Many people do not have any symptoms during the early stages of CAD. ??? CAD can be treated with lifestyle changes, medicines, surgery, or a combination of these treatments. This information is not intended to replace advice given to you by your health care provider. Make sure you discuss any questions you have with your health care provider. Document Released: 05/03/2015 Document Revised: 06/25/2019 Document Reviewed: 06/15/2019 [employer] Patient Education ?? 2019 [employer] Transradial Angiogram Transradial angiogram is an imaging test. This test uses X-ray images and colored dye that is made up of an iodine solution (contrast dye). This test is done to check for any abnormalities in the vessels that might affect blood flow, such as: ??? A blocked blood vessel. ??? A narrowed blood vessel. ??? A blood clot. ??? Abnormal, inherited blood vessel connections. During this test, a small, flexible tube (catheter) is inserted into an artery in the wrist (radial artery). The catheter is moved from the radial artery into other blood vessels in the body that need to be examined. Contrast dye is used to make blood vessels visible on X-ray images that are taken during the procedure. Tell a health care provider about: ??? Any allergies you have. ??? All medicines you are taking, including vitamins, herbs, eye drops, creams, and ckgx-urf-ykgmdei medicines. ??? Any problems you or family members have had with anesthetic medicines. ??? Any blood disorders you have. ??? Any surgeries you have had. ??? Any medical conditions you have. ??? Whether you are or may be . What are the risks? Generally, this is a safe procedure. However, problems may occur, including: ??? Infection. ??? Bleeding. ??? Allergic reactions to medicines or dyes. ??? Damage to other structures or organs, such as the blood vessels, lungs, or heart. ??? Blood clots. ??? Blood flow through the radial artery stopping or slowing down. This is rare. What happens before the procedure? Ask your health care provider about: ? Changing or stopping your regular medicines. This is especially important if you are taking diabetes medicines or blood thinners. ? Taking medicines such as aspirin and ibuprofen. These medicines can thin your blood. Do not take these medicines before your procedure if your health care provider instructs you not to. ??? Follow instructions from your health care provider about eating or drinking restrictions. ??? Do not use tobacco products for at least 24 hours before your procedure or as told by your health care provider. This includes cigarettes, chewing tobacco, or e-cigarettes. ??? Ask your health care provider how your surgical site will be marked or identified. ??? You may be given antibiotic medicine to help prevent infection. ??? You may have a physical exam. ??? You may have tests, including: ? Blood tests. ? X-rays. ??? Plan to have someone take you home after the procedure. ??? If you will be going home right after the procedure, plan to have someone with you for 24 hours. What happens during the procedure? To reduce your risk of infection: ? Your health care team will wash or sanitize their hands. ? Your skin will be washed with soap. ??? An IV tube will be inserted into one of your veins. ??? You will be given the following: ? A medicine to help you relax (sedative). ? A medicine that is injected to numb the area near the radial artery in your wrist (local anesthetic). ??? A needle will be inserted into your radial artery in your wrist. ??? A catheter will be inserted into your radial artery. The needle helps guide the catheter into your radial artery. ??? The catheter will be moved through your body to the desired blood vessel. An X-ray machine (fluoroscope) will help your health care provider bring the catheter to the correct place in your body. ??? Contrast dye will be injected into the catheter and will travel to the blood vessel that is being examined. ??? X-ray images will be taken of how the dye flows through your blood vessel. While the images are being taken, you may be given instructions on breathing, swallowing, moving, or talking. ??? The catheter and needle will be removed from your body. ??? A pressure (compression) wrap will be applied to your wrist to stop bleeding. The procedure may vary among health care providers and hospitals. What happens after the procedure? You will need to keep your wrist still for as long as told by your health care provider. ??? The pressure applied to your wrist will be gradually decreased until the compression wrap is removed. ??? You may have soreness and bruising in your wrist. This is normal. This should get better within about 1 week. ??? Your blood pressure, heart rate, breathing rate, and blood oxygen level will be monitored often until the medicines you were given have worn off. ??? You may continue to receive fluids and medicines through an IV tube. ??? Do not drive for 24 hours if you received a sedative. ??? You may have to wear compression stockings. These stockings help to prevent blood clots and reduce swelling in your legs. This information is not intended to replace advice given to you by your health care provider. Make sure you discuss any questions you have with your health care provider. Document Released: 06/30/2013 Document Revised: 05/24/2019 Document Reviewed: 09/09/2016 [employer] Patient Education ?? 2019 [employer] Heart Disease Prevention Heart disease is the leading cause of in the world. Coronary artery disease is the most common cause of heart disease. This condition results when cholesterol and other substances (plaque) build up inside the hernandez of the blood vessels that supply your heart muscle (arteries). This buildup in arteries is called atherosclerosis. You can take actions to lower your risk of heart disease. How can heart disease affect me? Heart disease can cause many unpleasant symptoms and complications, such as: ??? Chest pain (angina). ??? Reduced or blocked blood flow to your heart. This can cause: ? Irregular heartbeats (arrhythmias). ? Heart attack. ? Heart failure. What can increase my risk? The following factors may make you more likely to develop this condition: ??? High blood pressure (hypertension). ??? High cholesterol. ??? Smoking. ??? A diet high in saturated fats or trans fats. ??? Lack of physical activity. ??? Obesity. ??? Drinking too much alcohol. ??? Diabetes. ??? Having a family history of heart disease. What actions can I take to prevent heart disease? Nutrition ??? Eat a heart-healthy eating plan as told by your health care provider. Examples include the DASH (Dietary Approaches to Stop Hypertension) eating plan or the Mediterranean diet. ??? Generally, it is recommended that you: ? Eat less salt (sodium). Ask your health care provider how much sodium is safe for you. Most people should have less than 2,300 mg each day. ? Limit unhealthy fats, such as saturated and trans fats, in your diet. You can do this by eating low-fat dairy products, eating less red meat, and avoiding processed foods. ? Eat healthy fats (omega-3 fatty acids). These are found in fish, such as mackerel or salmon. ? Eat more fruits and vegetables. You should try to fill one-half of your plate with fruits and vegetables at each meal. ? Eat more whole grains. ? Avoid foods and drinks that have added sugars. Lifestyle ??? Get regular exercise. This is one of the most important things you can do for your health. Generally, it is recommended that you: ? Exercise for at least 30 minutes on most days of the week (150 minutes each week). The exercise should increase your heart rate and make you sweat (aerobic exercise). ? Add strength exercises on at least 2 days each week. ??? Do not use any products that contain nicotine or tobacco, such as cigarettes and e-cigarettes. These can damage your heart and blood vessels. If you need help quitting, ask your health care provider. Alcohol use ??? Do not drink alcohol if: ? Your health care provider tells you not to drink. ? You are , may be , or are planning to become . ??? If you drink alcohol, limit how much you have: ? 0???1 drink a day for women. ? 0???2 drinks a day for men. ??? Be aware of how much alcohol is in your drink. In the [place] one drink equals one typical bottle of beer (12 oz), one-half glass of wine (5 oz), or one shot of hard liquor (1?? oz). Medicines ??? Take fdkh-adt-jtupcgr and prescription medicines only as told by your health care provider. ??? Ask your health care provider whether you should take an aspirin every day. Taking aspirin may help reduce your risk of heart disease and stroke. ??? Depending on your risk factors, your health care provider may prescribe medicines to lower your risk of heart disease or to control related conditions. You may take medicine to: ? Lower cholesterol. ? Control blood pressure. ? Control diabetes. General information ??? Keep your blood pressure under control, as recommended by your health care provider. For most healthy people, the upper number of your blood pressure (systolic) should be no higher than 120, and the lower number (diastolic) no higher than 80. Treatment may be needed if your blood pressure is higher than 130/80. ??? Have your blood pressure checked at least every two years. Your health care provider may check your blood pressure more often if you have high blood pressure. ??? After age 20, have your cholesterol checked every 4???6 years. If you have risk factors for heart disease, you may need to have it checked more frequently. Treatment may be needed if your cholesterol is high. ??? Have your body mass index (BMI) checked every year. Your health care provider can calculate your BMI from your height and weight. ??? Work with your health care provider to lose weight, if needed, or to maintain a healthy weight. Where to find more information: ??? Centers for Disease Control and Prevention: www.cdc.gov/heartdisease ??? [place] [employer]: www.heart.org ? Take a free online heart disease risk quiz to better understand your personal risk factors. Summary ??? Heart disease is the leading cause of in the world. ??? Heart disease can cause chest pain, abnormal heart rhythms, heart attack, and heart failure. ??? High blood pressure, high cholesterol, and smoking are the main risk factors for heart disease, although other factors also contribute. ??? You can take actions to lower your chances of developing heart disease. Work with your health care provider to reduce your risk by following a heart-healthy diet, being physically active, and controlling your weight, blood pressure, and cholesterol level. This information is not intended to replace advice given to you by your health care provider. Make sure you discuss any questions you have with your health care provider. Document Released: 05/20/2005 Document Revised: 10/21/2018 Document Reviewed: 10/21/2018 [employer] Interactive Patient Education ?? 2019 [employer]. Radial Site Care This sheet gives you information about how to care for yourself after your procedure. Your health care provider may also give you more specific instructions. If you have problems or questions, contact your health care provider. What can I expect after the procedure? After the procedure, it is common to have: ??? Bruising and tenderness at the catheter insertion area. Follow these instructions at home: Medicines ??? Take pumk-[id number] and prescription medicines only as told by your health care provider. Insertion site care ??? Follow instructions from your health care provider about how to take care of your insertion site. Make sure you: ? Wash your hands with soap and water before you change your bandage (dressing). If soap and water are not available, use hand cancer genetics assistant. ? Change your dressing as told by your health care provider. ? Leave stitches (sutures), skin glue, or adhesive strips in place. These skin closures may need to stay in place for 2 weeks or longer. If adhesive strip edges start to loosen and curl up, you may trim the loose edges. Do not remove adhesive strips completely unless your health care provider tells you to do that. ??? Check your insertion site every day for signs of infection. Check for: ? Redness, swelling, or pain. ? Fluid or blood. ? Pus or a bad smell. ? Warmth. ??? Do not take baths, swim, or use a hot tub until your health care provider approves. ??? You may shower 24???48 hours after the procedure, or as directed by your health care provider. ? Remove the dressing and gently wash the site with plain soap and water. ? Pat the area dry with a clean towel. ? Do not rub the site. That could cause bleeding. ??? Do not apply powder or lotion to the site. Activity ??? For 24 hours after the procedure, or as directed by your health care provider: ? Do not flex or bend the affected arm. ? Do not push or pull heavy objects with the affected arm. ? Do not drive yourself home from the hospital or clinic. You may drive 24 hours after the procedure unless your health care provider tells you not to. ? Do not operate machinery or power tools. ??? Do not lift anything that is heavier than 10 lb (4.5 kg), or the limit that you are told, until your health care provider says that it is safe. ??? Ask your health care provider when it is okay to: ? Return to work or school. ? Resume usual physical activities or sports. ? Resume sexual activity. General instructions ??? If the catheter site starts to bleed, raise your arm and put firm pressure on the site. If the bleeding does not stop, get help right away. This is a medical emergency. ??? If you went home on the same day as your procedure, a responsible adult should be with you for the first 24 hours after you arrive home. ??? Keep all follow-up visits as told by your health care provider. This is important. Contact a health care provider if: ??? You have a fever. ??? You have redness, swelling, or yellow drainage around your insertion site. Get help right away if: ??? You have unusual pain at the radial site. ??? The catheter insertion area swells very fast. ??? The insertion area is bleeding, and the bleeding does not stop when you hold steady pressure on the area. ??? Your arm or hand becomes pale, cool, tingly, or numb. These symptoms may represent a serious problem that is an emergency. Do not wait to see if the symptoms will go away. Get medical help right away. Call your local emergency services (911 in the [place] Do not drive yourself to the hospital. Summary ??? After the procedure, it is common to have bruising and tenderness at the site. ??? Follow instructions from your health care provider about how to take care of your radial site wound. Check the wound every day for signs of infection. ??? Do not lift anything that is heavier than 10 lb (4.5 kg), or the limit that you are told, until your health care provider says that it is safe. This information is not intended to replace advice given to you by your health care provider. Make sure you discuss any questions you have with your health care provider. Document Released: 11/08/2011 Document Revised: 11/11/2018 Document Reviewed: 11/11/2018 [employer] Interactive Patient Education ?? 2019 [employer]. Emergency Awareness and Preventative Care STROKE is an EMERGENCY Every Minute Counts Act FAST and Check for these signs: FACE Does the face look uneven? ARM Does one arm drift down? SPEECH Does their speech sound strange? TIME Call at any sign of stroke Stroke Risk Factors Atrial Fibrillation (irregular heartbeat) Diabetes Family history of stroke Heart Disease Heavy alcohol use High Blood Pressure High Cholesterol Physical inactivity and obesity Smoking Cigarette Smoking The facts are clear, cigarette smoking will shorten your life. Smoking can cause many illnesses along the way. As a healthcare provider, we recommend that you stop smoking. Assistance with quitting is available by contacting 9-212-XQKO-NOW. This is a free resource providing counseling, support, and referral. Or you may contact your personal physician. National Suicide Prevention Lifeline: The National Suicide Prevention Lifeline is a national network of local crisis centers that provides free and confidential emotional support to people in suicidal crisis or emotional distress 24 hours a day, 7 days a week. Don't Wait! Stop a Heart Attack Before it Starts What is a heart attack? A heart attack is damage or to a part of the heart from severely decreased or lack of blood flow to the heart. Over time, arteries can become narrow from the buildup of fat and cholesterol, which is called plaque. The plaque can rupture causing a blood clot to form. When the blood clot forms, the artery can become severely narrowed or completely blocked, causing a heart attack. Heart attack is the leading cause of in the [place]. 85% of muscle damage occurs within the first 2 hours. Delay in the recognition of heart attack symptoms increases the chances of . Know the early symptoms of a heart attack: Nausea Feeling of fullness in chest Jaw Pain Pain that travels down one or both arms Fatigue/being tired Anxiety Back Pain Chest pressure, squeezing, or discomfort Shortness of breath Sweating, or a cold sweat Feeling of impending doom There are unusual signs of a heart attack, too! Women, the elderly, and diabetics may present with atypical symptoms: Fainting/dizziness Weakness Confusion Risk Factors for a Heart Attack Some heart disease risk factors, such as age and family history, cannot be changed. Others, like smoking and lack of exercise, can be changed. Smoking High Cholesterol High Blood Pressure Family History Obesity Age Gender (Males are at higher risk) Lack of Exercise Diabetes Diet Stress Excessive Alcohol Intake If you or someone you know is experiencing the signs and symptoms of a heart attack, DON???T DELAY. Call immediately and seek help. If someone collapses, perform CPR! Do not attempt to drive if you are having symptoms of heart attack. Hands-Only CPR Why Hands-Only CPR? Hands-Only CPR has been shown to be as effective as conventional CPR for cardiac arrests that occur outside of a hospital. Survival depends on immediately receiving CPR from someone nearby. How do you perform Hands-Only CPR? There are two easy steps: Call if you see a teen or adult collapse Push hard and fast in the center of the chest at a beat of 100 beats per minute. Save a life! 4 WAYS TO GET AHEAD OF SEPSIS SEPSIS is a MEDICAL EMERGENCY. Time matters! Infections put you and your family at risk for a life-threatening condition called sepsis. Sepsis is the body's extreme response to an infection. It is life-threatening, and without timely treatment, sepsis can rapidly lead to tissue damage, organ failure, and . Sepsis happens when an infection you already have-in your skin, lungs, urinary tract or somewhere else-triggers a chain reaction throughout your body. 1 PREVENT INFECTIONS Take good care of chronic conditions. Talk to your doctor about getting the recommended vaccines. 2 PRACTICE GOOD HYGIENE Wash your hands frequently. Keep cuts or open sores clean and covered until they are healed. 3 KNOW THE SYMPTOMS Confusion or disorientation Shortness of breath High heart rate Fever, shivering, or feeling very cold Extreme pain or discomfort Clammy or sweaty skin 4 ACT FAST Get medical care IMMEDIATELY if you suspect sepsis or if you have an infection that is not getting better or is getting worse. To learn more about sepsis and how to prevent infections, visit www.cdc.gov/sepsis. Test Results Laboratory or Other Results This Visit (last charted value for your 01/07/2020 visit) Hematology 01/07/2020 9:35 AM Platelet Count: 333 K/uL -- Normal range between ( 163 and 369 ) Patient Name:WAI MORENO I have received and understand this information and was given the opportunity to ask questions. Patient/Legal File Clerk Name: Patient/Legal File Clerk Signature: Relationship to Patient: Clinician/Hospital Legal File Clerk Signature: Date: documented in this encounter Plan of Treatment Not on file documented as of this encounter Visit Diagnoses Not on filedocumented in this encounter
--- OUTSIDE RECORDS SUMMARY | 2025-10-18 08:59 | XMS_ITS | Encounter Summary ---
Author Organization [employer] ([place], [place], [place], [place], [place]) Address [address] [place] [address] Care Team Providers Care Lease Out Man Name Role Phone Unavailable Primary Care Provider Unavailabl e Encounter Details Date Type Department Care Team (Late st Contact Info) Description 04/17/2020 Transcribed Document [facility] [place] Family Medicine [address] [place] [address] ProviderGabe MD [address] [place], [place] [id number] Social History Tobacco Use Types Packs/Day Years Used Date Smoking Tobacco: Never Assessed Sex and Gender Information Value Date Recorded Sex Assigned at Not on file Legal Sex Male 3:36 PM CDT Gender Identity Not on file Sexual Orientation Not on file documented as of this encounter Miscellaneous Notes * [employer]ner Conversion Note - Gabe Hill MD - 04/17/2020 8:04 PM CDT Nursing Discharge Summary Entered On: 04/17/2020 20:05 EDT Performed On: 04/17/2020 20:04 EDT by Jacki Carlson RN Discharge Documentation Patient Disposition, General : Discharge Discharge To : Home with ambulatory/outpatient follow-up Mode Of Departure, General Discharge : Private vehicle, Wheelchair Accompanied By, Discharge : Care provider IV Discontinued : Yes Personal Belongings With Patient : Yes Medications Given to Patient : Other: meds to beds was provided Discharge Instructions Reviewed With, Opportunity For Questions Given : Patient, Care provider Patient Education Completed : Yes Teaching Method : Explanation, Printed materials Teaching Evaluation : Verbalizes understanding Jacki Carlson RN - 04/17/2020 20:04 EDT Electronically signed by Jamila [facility] Conversion Body [employer]ner at 02/06/2023 2:56 PM CDT documented in this encounter Plan of Treatment Not on file documented as of this encounter Visit Diagnoses Not on filedocumented in this encounter
--- OUTSIDE RECORDS SUMMARY | 2025-10-18 08:59 | XMS_ITS | Encounter Summary ---
Author Organization [employer] ([place], [place], [place], [place], [place]) Address [address] [place] [address] Care Team Providers Care Doctor Of Naprapathic Medicine Name Role Phone Unavailable Primary Care Provider Unavailabl e Encounter Details Date Type Department Care Team (Late st Contact Info) Description 04/06/2020 Transcribed Document [facility] [place] Family Medicine [address] [place] [address] ProviderGabe MD [address] [place] [address] Social History Tobacco Use Types Packs/Day Years Used Date Smoking Tobacco: Never Assessed Sex and Gender Information Value Date Recorded Sex Assigned at Not on file Legal Sex Male 3:36 PM CDT Gender Identity Not on file Sexual Orientation Not on file documented as of this encounter Miscellaneous Notes * [employer]ner Conversion Note - Gabe Hill MD - 04/06/2020 1:22 PM CDT PAT Adult Entered On: 04/06/2020 13:26 EDT Performed On: 04/06/2020 13:22 EDT by LIVE BANGURA RN Vital Measurements Temperature Source : Temporal artery scanning Temperature Mode : Fahrenheit Temperature, Fahrenheit : 98.4 Deg F Clinical Temperature, C : 36.9 Deg C Peripheral Pulse Rate : 88 bpm Respiratory Rate : 18 Breaths/Min Systolic Blood Pressure : 118 mmHg Diastolic Blood Pressure : 58 mmHg (LOW) Oxygen Saturation : 95 % Oxygen Therapy Mode : Room air LIVE BANGURA RN - 04/06/2020 13:22 EDT Height and Weight, Clinical Dosing Height Source : Stated Height Entry Format : [place] Height, Feet : 6 ft(Converted to: 183 cm, 72 Inch) Height, Inches : 1 Inch(Converted to: 0 ft 1 Inch, 2.54 cm) Clinical Height : 185.42 cm Weight Source : Standing scale Weight Entry Format : [place] Clinical Dosing Weight : 181.82 kg Weight, Pounds : 400 lb Body Surface Area (BSA) : 2.89 m2 Body Mass Index : 52.9 kg/m2 (>HHI) [place] Body Weight : 79 kg LIVE BANGURA RN - 04/06/2020 13:22 EDT Health Histories Smoking Status : Former smoker, quit more than 30 days ago Smokeless Tobacco Status : Smokeless tobacco user within last 30 days Desires Tobacco Cessation Medication : No Reason for No Tobacco Cessation Medication : Refuses FDA approved medications LIVE BANGURA RN - 04/06/2020 13:22 EDT Social History (As Of: 04/06/2020 13:26:51 EDT) Tobacco: Former smoker, quit more than 30 days ago Smoking Status. Years of Use: 25. Last Used: quit smoking 2011. (Last Updated: 01/07/2020 09:56:56 EDT by JOLENE GRIMALDO RN) Former smoker, quit more than 30 days ago Smoking Status. Chewing tobacco Smokeless Tobacco Use History. (Last Updated: 04/06/2020 13:22:44 EDT by LIVE BANGURA RN) Alcohol: Alcohol Use History No. (Last Updated: 01/07/2020 09:57:05 EDT by JOLENE GRIMALDO RN) Alcohol Use History No. Use in Last 12 Months: No. (Last Updated: 04/06/2020 13:22:44 EDT by LIVE BANGURA RN) Substance Abuse: Drug Use Hx: No. Use in Last 12 Months: No. (Last Updated: 04/06/2020 13:22:44 EDT by LIVE BANGURA RN) Infectious Disease History Has the patient ever been tested for COVID-19? : No, Patient stated COVID19 Screening : No Experiencing Infectious Disease Symptoms : No symptoms Physical contact outside [place] in the last 30 days : No Infectious Disease Symptoms Score : 0 Infectious Disease History : Chicken pox/Shingles, Influenza, Mononucleosis Tuberculosis Symptoms : None LIVE BANGURA RN - 04/06/2020 13:22 EDT COVID19 PreProcedure Screening Is this an Emergent or Add on Procedure? : No Has patient been isolated since the test : N/A - PreProcedure, in-person visit Exposed to COVID19 symptoms since test? : N/A - PreProcedure, in-person visit LIVE BANGURA RN - 04/06/2020 13:22 EDT Anesthesia/Transfusion History Family History of Anesthesia Reaction : No prior transfusion(s) Transfusion History : Prior anesthesia without reaction Family History of Anesthesia Reaction : None LIVE BANGURA RN - 04/06/2020 13:22 EDT Functional Assessment Functional ADL Evaluation Index EBN Bathing : Independent (2) Dressing : Independent (2) Toileting : Independent (2) Transferring Bed or Chair : Independent (2) Continence : Independent (2) Feeding : Independent (2) LIVE BANGURA RN - 04/06/2020 13:22 EDT ADL Index Score : 12 LIVE BANGURA RN - 04/06/2020 13:22 EDT Advance Directive Patient has Advance Directive *Q : No, patient refuses Advance Directive information LIVE BANGURA RN - 04/06/2020 13:22 EDT [place] Suicide Severity Rating Scale (C-SSRS) CSSRS Past Month Wish to be : No CSSRS Past Month Suicidal Thoughts : No CSSRS Lifetime Suicide Behavior : No Suicide Severity Rating Score : 0 Suicide Severity Rating : No Additional Care Required at this time LIVE BANGURA RN - 04/06/2020 13:22 EDT Psychosocial History Do You Have a History of the Following? : Patient denies history Currently in Unsafe Situation : No LIVE BANGURA RN - 04/06/2020 13:22 EDT Teaching/Learning Assessment Barriers To Learning : None evident Individuals Taught : Patient Readiness to Learn : Cooperative Readiness to Learn : Explanation, Printed materials LIVE BANGURA RN - 04/06/2020 13:22 EDT Education Topics, Periop Preadmission Perioperative Education Grid Arrival Time/Place : Verbalizes understanding CHG Preoperative Bathing/Cloths : Verbalizes understanding Infection Control : Verbalizes understanding NPO Status/Directions : Verbalizes understanding Preprocedure Preparations : Verbalizes understanding Preprocedure Tests/Labs : Verbalizes understanding Remove Body Piercings : Verbalizes understanding Responsible Adult : Verbalizes understanding Take/Hold Medications Pre-Procedure : Verbalizes understanding LIVE BANGURA RN - 04/06/2020 13:22 EDT General Info Want Family/Rep/Phys Notified of Admit : No Emergency Contact #1 : Kaylin Emergency Contact #1 Emergency Contact #1 Relationship : Emergency Contact #2 : - Emergency Contact #2 Phone Number : - Emergency Contact #2 Relationship : - Primary Language : Qatari Communication Barrier : None LIVE BANGURA RN - 04/06/2020 13:22 EDT Shlomo Scale Shlomo Sensory Perception : No impairment Shlomo Moisture : Rarely moist Shlomo Activity : Walks frequently Shlomo Mobility : No limitation Shlomo Nutrition : Excellent Shlomo Friction and Shear : No apparent problem Shlomo Score : 23 LIVE BANGURA RN - 04/06/2020 13:22 EDT Sleep Apnea Risk Assmt BiPAP/CPAP Ordered for Home Use : Yes Hx of Obstructive Sleep Apnea Diagnosis : Yes BiPAP/CPAP Used at Home : Yes Age over 50 Years Old : Yes Gender Male : Yes LIVE BANGURA RN - 04/06/2020 13:22 EDT documented in this encounter Plan of Treatment Not on file documented as of this encounter Visit Diagnoses Not on filedocumented in this encounter
--- OUTSIDE RECORDS SUMMARY | 2025-10-18 08:59 | XMS_ITS | Encounter Summary ---
Author Organization [employer] ([place], [place], [place], [place], [place]) Address [address] [place] [address] Care Team Providers Care Distribution Systems Serviceperson Name Role Phone Unavailable Primary Care Provider Unavailabl e Encounter Details Date Type Department Care Team (Late st Contact Info) Description 04/06/2020 Transcribed Document [facility] [place] [facility] [place] [address] ProviderGabe MD [address] [place] [address] Social History Tobacco Use Types Packs/Day Years Used Date Smoking Tobacco: Never Assessed Sex and Gender Information Value Date Recorded Sex Assigned at Not on file Legal Sex Male 3:36 PM CDT Gender Identity Not on file Sexual Orientation Not on file documented as of this encounter Miscellaneous Notes * [employer]ner Conversion Note - Gabe Hill MD - 04/06/2020 1:51 PM CDT Patient: WAI MORENO Age: 54 Years Sex: Male : 1965 Chief Complaint Right Hip Pain Primary Care Provider JOSE KAMINSKI (REF), -FAM History of Present Illness This patient is a pleasant 54 yo WM who presents with right hip pain. The pain has been going on for 3 years but has gotten progressively worse. She describes it as a sharp pain. It is now to the point that it is affecting her ADLs. She has tried NSAIDs without relief of her pain. She has not fallen. She has used a cane as an assistive device. She was seen at Dr Leyva's office and evaluated and it was determined that she has severe DJD affecting the right hip. Pt was offered a Right Total Hip Arthroplasty via Anterior Approach and agreed to the procedure. Pt denies a h/o DVT/PE. No trouble with anesthesia in the past. Pt has a h/o ERICA and wears CPAP. No asthma or COPD. Review of Systems Constitutional: Neg for fevers or chills. Eyes: Neg for blurry vision or change in vision. ENT: Neg for sore throat, ear pain, or dizziness. Cardiac: Neg for chest pain or dyspnea on exertion. Respiratory: Neg for shortness of breath. Gastrointestinal: Neg for nausea, vomiting, diarrhea, or constipation. Musculoskeletal: Pos for right hip pain. Neurologic: Neg for headaches or seizures. Psychiatric: Neg for anxiety and depression. Integumentary: Neg for rash. Vital Signs T: 36.9 ??C HR: 88(Peripheral) RR: 18 BP: 118/58 SpO2: 95% HT: 185.42 cm WT: 181.82 kg BMI: 52.9 Oxygen Settings (Last) Oxygen Therapy Mode: Room air (04/06/20 13:22:00) Physical Exam Constitutional: This is a pleasant 54 yo WM BMI 52.9, in no acute distress. HEENT: Normocephalic, atraumatic. PEERLA. Extraocular muscles intact. Conjunctiva pink without exudate. Oropharynx pink and moist. Neck supple. No JVD. Cardiac: SI, S2. RRR. No M/R/G. Respiratory: Lungs CTA bilaterally. No wheezes, rales, or rhonchi. Abdomen: Soft, nontender, nondistended. Active bowel sounds. No visible masses. Musculoskeletal: Right Hip Flexion 100, IR -10, ER 50. Integumentary: Skin is pink, warm and dry. No rashes. Neurologic: CN II-XII grossly intact. Psychiatric: Judgment and affect appropriate. Assessment/Plan 1. Preoperative Evaluation- Pt underwent preoperative laboratory workup and diagnostic studies. This included a medical evaluation from his PCP who provided him with clearance to proceed with surgery. 2. Right Hip Pain secondary to DJD- Proceed with surgery as scheduled with Dr Leyva on 04/17/2020. 3. ERICA- Continue CPAP. 4. Hypertension- Continue Amlodipine, HCTZ/Triamterene and Lisinopril. 5. Hyperlipidemia- Continue Pravastatin. BASED ON THIS INFORMATION, I FEEL THAT THIS PATIENT SHOULD REQUIRE OUTPATIENT HOSPITALIZATION UNLESS DEEMED OTHERWISE APPROPRIATE BY THE ORTHOPEDIC SURGEON GIVEN THE COMPLEXITY OF THE OPERATION. THIS PATIENT WILL BE A GREAT FAST TRACK CANDIDATE. Problem List/Past Medical History Ongoing Arthritis Back pain Bronchitis Chest pain History of obstructive sleep apnea Hyperlipidemia Hypertension Osteoarthritis Sleep apnea Procedure/Surgical History back surgery, Colonoscopy, left ankle surgery, wisdom teeth extracted. Home Medications (8) Active amLODIPine 10 mg oral tablet 10 mg = 1 Tab, Oral, Daily aspirin 81 mg oral tablet , Oral, Daily gabapentin 600 mg oral tablet 600 mg = 1 Tab, Oral, TID hydroCHLOROthiazide-triamterene 50 mg-75 mg oral tablet 1 Tab, Oral, Daily ibuprofen 800 mg, Oral, TID lisinopril 20 mg oral tablet , Oral, Daily pravastatin 20 mg oral tablet , Oral, Daily traMADol 50 mg oral tablet 100 mg = 2 Tab, PRN, Oral, Q6H Allergies No Known Allergies Social History Alcohol Alcohol Use History No. Use in Last 12 Months: No. Alcohol Use History No. Substance Abuse Drug Use Hx: No. Use in Last 12 Months: No. Tobacco Former smoker, quit more than 30 days ago Smoking Status. Chewing tobacco Smokeless Tobacco Use History. Former smoker, quit more than 30 days ago Smoking Status. Years of Use: 25. Last Used: quit smoking 2011. Family History Pt mother from Lung Cancer at 59. Pt father at 57 from a [place]. Diagnostic Results EKG- Sinus Rhythm, 82 CXR- NAD Lab Results Test Name Test Result Date/Time Sodium Level 140 mmol/L 04/06/2020 13:52 EDT Potassium Level 4.0 mmol/L 04/06/2020 13:52 EDT Chloride Level 104 mmol/L 04/06/2020 13:52 EDT Carbon Dioxide Level 27 mmol/L 04/06/2020 13:52 EDT Anion Gap 13 04/06/2020 13:52 EDT Glucose Level 110 mg/dL (High) 04/06/2020 13:52 EDT Blood Urea Nitrogen 20 mg/dL 04/06/2020 13:52 EDT Creatinine Level 1.18 mg/dL 04/06/2020 13:52 EDT eGFR >60 mL/min/1.73m2 04/06/2020 13:52 EDT eGFR NonAfrican >60 mL/min/1.73m2 04/06/2020 13:52 EDT Bun/Creatinine 16.9 04/06/2020 13:52 EDT Calcium Level 8.9 mg/dL 04/06/2020 13:52 EDT Protein Total 7.5 Gram/dL 04/06/2020 13:52 EDT Albumin Level 3.7 Gram/dL 04/06/2020 13:52 EDT Globulin 3.8 Gram/dL 04/06/2020 13:52 EDT A/G Ratio 1.0 (Low) 04/06/2020 13:52 EDT Bilirubin Total 0.5 mg/dL 04/06/2020 13:52 EDT Alk Phos 75 Units/Liter 04/06/2020 13:52 EDT AST 13 Units/Liter 04/06/2020 13:52 EDT ALT 25 Units/Liter 04/06/2020 13:52 EDT Hgb A1C 5.90 % 04/06/2020 13:52 EDT eAVG Glucose 123 mg/dL 04/06/2020 13:52 EDT WBC 8.6 K/uL 04/06/2020 13:52 EDT RBC 4.32 Million/uL (Low) 04/06/2020 13:52 EDT Hgb 14.2 Gram/dL 04/06/2020 13:52 EDT Hct 41.9 % 04/06/2020 13:52 EDT MCV 97.0 fL (High) 04/06/2020 13:52 EDT MCH 32.9 pg (High) 04/06/2020 13:52 EDT MCHC 33.9 Gram/dL 04/06/2020 13:52 EDT Platelet Count 310 K/uL 04/06/2020 13:52 EDT MPV 10.8 fL 04/06/2020 13:52 EDT RDW 12.8 % 04/06/2020 13:52 EDT Neut % 63.4 % 04/06/2020 13:52 EDT Neut # 5.46 K/uL 04/06/2020 13:52 EDT Lymph % 24.0 % 04/06/2020 13:52 EDT Lymph # 2.06 K/uL 04/06/2020 13:52 EDT [place] % 7.8 % 04/06/2020 13:52 EDT [place] # 0.67 K/uL 04/06/2020 13:52 EDT Eos % 2.9 % 04/06/2020 13:52 EDT Eos # 0.25 K/uL 04/06/2020 13:52 EDT Baso % 0.7 % 04/06/2020 13:52 EDT Baso # 0.06 K/uL 04/06/2020 13:52 EDT Slide Review No 04/06/2020 13:52 EDT IG# 0 x10(3)/uL 04/06/2020 13:52 EDT IG% 1 % 04/06/2020 13:52 EDT PT 10.1 Second(s) 04/06/2020 13:52 EDT INR 1.0 04/06/2020 13:52 EDT PTT 27.8 Second(s) 04/06/2020 13:52 EDT Urine Type. U CleanCatch 04/06/2020 13:52 EDT Urine Color YELLOW2 04/06/2020 13:52 EDT Urine Appearance CLEAR2 04/06/2020 13:52 EDT Urine Specific [place] 1.015 04/06/2020 13:52 EDT Urine pH Dipstick 6.5 04/06/2020 13:52 EDT Urine Leukocyte Esterase NEGATIVE2 04/06/2020 13:52 EDT Urine Nitrite NEGATIVE2 04/06/2020 13:52 EDT Urine Protein Dipstick NEGATIVE2 04/06/2020 13:52 EDT Urine Glucose Dipstick NEGATIVE2 04/06/2020 13:52 EDT Urine Ketones Dipstick NEGATIVE2 04/06/2020 13:52 EDT Urine Urobilinogen Dipstick 1.0 (Abnormal) 04/06/2020 13:52 EDT Urine Bilirubin Dipstick NEGATIVE2 04/06/2020 13:52 EDT Urine Blood Dipstick NEGATIVE2 04/06/2020 13:52 EDT Ur RBC 0-2 (Abnormal) 04/06/2020 13:52 EDT Ur WBC 0-2 04/06/2020 13:52 EDT Ur Bacteria None Seen 04/06/2020 13:52 EDT Ur Epithelial Cells 0-2 (Abnormal) 04/06/2020 13:52 EDT Prealbumin 28.4 mg/dL 04/06/2020 13:52 EDT documented in this encounter Plan of Treatment Not on file documented as of this encounter Visit Diagnoses Not on filedocumented in this encounter
--- OUTSIDE RECORDS SUMMARY | 2025-10-18 08:59 | XMS_ITS | Encounter Summary ---
Author Organization [employer] ([place], [place], [place], [place], [place]) Address [address] [place] [address] Care Team Providers Care Aesthetician Name Role Phone Unavailable Primary Care Provider Unavailabl e Encounter Details Date Type Department Care Team (Late st Contact Info) Description 04/17/2020 Transcribed Document [facility] [address] [place] [address] ProviderGabe MD [address] [place] [address] Social History Tobacco Use Types Packs/Day Years Used Date Smoking Tobacco: Never Assessed Sex and Gender Information Value Date Recorded Sex Assigned at Not on file Legal Sex Male 3:36 PM CDT Gender Identity Not on file Sexual Orientation Not on file documented as of this encounter Miscellaneous Notes * Cerner Conversion Note - Gabe Hill MD - 04/17/2020 10:18 AM CDT Pain Assessment Entered On: 04/17/2020 12:07 EDT Performed On: 04/17/2020 11:59 EDT by Jacki Carlson RN Intervention Information: oxyCODONE Performed by Jacki Carlson RN on 04/17/2020 10:59:00 EDT oxyCODONE,10mg Oral,Pain (Severe 7-10) Pain Assessment Pain Assessment : Follow-up assessment Pain Scale Goal : 4 Pain Scale Used : 0-10 Scale Pain Improved by Intervention : Yes Jacki Carlson RN - 04/17/2020 12:07 EDT Pain Scale Intensity : 8 Jacki Carlson RN - 04/17/2020 12:07 EDT Image 4 - Images currently included in the form version of this document have not been included in the text rendition version of the form. Electronically signed by Ariella Marino Conversion [employer] Service Supervisor [employer] at 02/06/2023 3:07 PM CDT documented in this encounter Plan of Treatment Not on file documented as of this encounter Visit Diagnoses Not on filedocumented in this encounter
--- OUTSIDE RECORDS SUMMARY | 2025-10-18 08:59 | XMS_ITS | Encounter Summary ---
Author Organization [employer] ([place], [place], [place], [place], [place]) Address [address] [place] [address] Care Team Providers Care School Patrol Name Role Phone Unavailable Primary Care Provider Unavailabl e Encounter Details Date Type Department Care Team (Late st Contact Info) Description 04/17/2020 Transcribed Document [facility] [place] [address] [place] [address] ProviderGabe MD [address] [place] [address] Social History Tobacco Use Types Packs/Day Years Used Date Smoking Tobacco: Never Assessed Sex and Gender Information Value Date Recorded Sex Assigned at Not on file Legal Sex Male 3:36 PM CDT Gender Identity Not on file Sexual Orientation Not on file documented as of this encounter Miscellaneous Notes * Cerner Conversion Note - Gabe Hill MD - 04/17/2020 10:51 AM CDT Admission History, Adult Entered On: 04/17/2020 10:54 EDT Performed On: 04/17/2020 10:51 EDT by Jacki Carlson RN Advance Directive Patient has Advance Directive *Q : No, patient refuses Advance Directive information Jacki Carlson RN - 04/17/2020 10:51 EDT Anesthesia/Transfusion History Family History of Anesthesia Reaction : No prior transfusion(s) Blood Transfusion Acceptable to Patient : Yes Transfusion History : Prior anesthesia without reaction Family History of Anesthesia Reaction : None Jacki Carlson RN - 04/17/2020 10:51 EDT Anticipated Discharge Needs Discharge To, Anticipated : Home Anticipated Discharge Needs at This Time : Physical Therapy Jacki Carlson RN - 04/17/2020 10:51 EDT Education Topics, Admission Orientation DCP GENERIC CODE Advance Directives : Returns demonstration, Verbalizes understanding Allergy Band Applied : Returns demonstration, Verbalizes understanding Assessment/Vital Signs : Returns demonstration, Verbalizes understanding Bed Control : Returns demonstration, Verbalizes understanding Call Light : Returns demonstration, Verbalizes understanding Confidentiality : Returns demonstration, Verbalizes understanding Diet/Room Service : Returns demonstration, Verbalizes understanding Fall Prevention : Returns demonstration, Verbalizes understanding Hand Hygiene : Returns demonstration, Verbalizes understanding Healthcare Provider Visit : Returns demonstration, Verbalizes understanding ID Band Applied : Returns demonstration, Verbalizes understanding Orientation to Room/Bathroom : Returns demonstration, Verbalizes understanding Patient Bill of Rights : Returns demonstration, Verbalizes understanding Patient Rights/Responsibilities : Returns demonstration, Verbalizes understanding Patient Safety : Returns demonstration, Verbalizes understanding Personal Privacy Code : Returns demonstration, Verbalizes understanding Rapid Response Initiated by Patient/Family : Returns demonstration, Verbalizes understanding Rounding : Returns demonstration, Verbalizes understanding Siderails use/risks : Returns demonstration, Verbalizes understanding Skin Precautions : Returns demonstration, Verbalizes understanding Smoking Policy : Returns demonstration, Verbalizes understanding Telemetry Monitoring : Returns demonstration, Verbalizes understanding Television/Phone : Returns demonstration, Verbalizes understanding Visiting Policy : Returns demonstration, Verbalizes understanding Jacki Carlson RN - 04/17/2020 10:51 EDT Functional Assessment Living Situation : Home Patient Lives With : Dependent Child/Children, Spouse Persons Assisting Patient at Home : Spouse Current Daily Living Assistance : None Sensory Deficits : None Mobility Assistance Prior to Admission : Partial assistance YORK Hx Falls Immediate/Within 3 Months : No Current Home Treatments : CPAP Home Equipment : Cane Cane : Cane, narrow based Professional Skilled Services : None Special Services and Community Resources : None Jacki Carlson RN - 04/17/2020 10:51 EDT General Info Preferred Name : WAI Arrived From : Home Mode of Arrival on Unit : Ambulatory Patient Arrival Date/Time : 04/17/2020 10:45 EDT Legal Guardian : Unaccompanied [place] Family/Rep/Phys Notified of Admit : No Emergency Contact #1 : Kaylin Emergency Contact #1 Emergency Contact #1 Relationship : Emergency Contact #2 : - Emergency Contact #2 Phone Number : - Emergency Contact #2 Relationship : - Information Obtained From : Patient Primary Language : Egyptian Preferred Communication Mode : Verbal Communication Barrier : None Currently Lactating : N/A Status : N/A Jacki Carlson RN - 04/17/2020 10:51 EDT Fall Risk Scales ABCs Fall Injury Risk Identification : Bones, Surgery ABC Fall Injury Risk : Moderate to high injury risk Injury Moderate to High Risk Interventions : Bed alarm on, Chair alarm on, Wrist band (fall risk) on per policy YORK Hx Falls Immediate/Within 3 Months : No York Secondary Diagnosis : Yes YORK Use of Ambulatory Aid : Bed rest/Nurse assist YORK IV Therapy or IV Access : Yes [place] Gait/Transferring : Weak [place] Mental Status : Oriented to own ability [place] Fall Risk Score : 45 YORK Fall Scale Risk Level : 25-45 Medium Risk [place] Fall Interventions : Adequate lighting, Bed in low position, Call device within reach, Fall prevention handout/education per facility policy, Hourly comfort/safety rounds, Non-slip footwear, Personal items within reach, Room free of clutter/spills, Upper side-rails up, Wheels locked, Wires/Cords secured Fall Moderate to High Risk Interventions : Bed alarm on, Chair alarm on, Wrist band (fall risk) on Jacki Carlson RN - 04/17/2020 10:51 EDT Fall Risk Education Grid Alarms : Verbalizes understanding, Returns demonstration Assistive Equipment Use : Verbalizes understanding, Returns demonstration Bed Height/Stabilization : Verbalizes understanding, Returns demonstration Call light use : Verbalizes understanding, Returns demonstration Door Open : Verbalizes understanding, Returns demonstration Environmental Management : Verbalizes understanding, Returns demonstration Eyeglasses Use : Verbalizes understanding, Returns demonstration Fall Community Resources : Verbalizes understanding, Returns demonstration Fall Contract/Letter : Verbalizes understanding, Returns demonstration Fall Prevention in the Home : Verbalizes understanding, Returns demonstration Fall Prevention Protocol : Verbalizes understanding, Returns demonstration Home Risk Assessment : Verbalizes understanding, Returns demonstration Need Constant Observation : Verbalizes understanding, Returns demonstration Night Light Use : Verbalizes understanding, Returns demonstration Nonskid Footwear Use : Verbalizes understanding, Returns demonstration Notification of Staff When Leaving : Verbalizes understanding, Returns demonstration Orthostatic Hypotension Precautions : Verbalizes understanding, Returns demonstration Personal Article Availability : Verbalizes understanding, Returns demonstration Prevention Responsibility Family : Verbalizes understanding, Returns demonstration Prevention Responsibility Patient : Verbalizes understanding, Returns demonstration Risk Alert Methods : Verbalizes understanding, Returns demonstration Risk Factors : Verbalizes understanding, Returns demonstration Safety Aids : Verbalizes understanding, Returns demonstration Siderails use/risks : Verbalizes understanding, Returns demonstration Special Assistive Devices : Verbalizes understanding, Returns demonstration Staff Responsiveness : Verbalizes understanding, Returns demonstration Symptom Identification & Action Plan *Q : Verbalizes understanding, Returns demonstration Symptom Reporting : Verbalizes understanding, Returns demonstration Toileting Schedule : Verbalizes understanding, Returns demonstration Transfer/Mobility Techniques : Verbalizes understanding, Returns demonstration Urinal/Bedpan Availability : Verbalizes understanding, Returns demonstration Wait for Assistance : Verbalizes understanding, Returns demonstration Wheelchair Safety : Verbalizes understanding, Returns demonstration Jacki Carlson RN - 04/17/2020 10:51 EDT Barriers to Learning : None evident Individuals Taught : Patient Readiness to Learn : Cooperative Learning Style Preferences Family : Verbal explanation Learning Style Preferences Patient : Printed materials, Verbal explanation Teaching Evaluation : Verbalizes understanding Fall Risk Scale Calc Temp : 0 Jacki Carlson RN - 04/17/2020 10:51 EDT Health Histories Smoking Status : Former smoker, quit more than 30 days ago Smokeless Tobacco Status : Smokeless tobacco user within last 30 days Desires Tobacco Cessation Medication : No Reason for No Tobacco Cessation Medication : Refuses FDA approved medications Jacki Carlson RN - 04/17/2020 10:51 EDT Social History (As Of: 04/17/2020 10:54:39 EDT) Tobacco: Former smoker, quit more than 30 days ago Smoking Status. Years of Use: 25. Last Used: quit smoking 2011. (Last Updated: 01/07/2020 09:56:56 EDT by JOLENE GRIMALDO RN) Former smoker, quit more than 30 days ago Smoking Status. Chewing tobacco Smokeless Tobacco Use History. (Last Updated: 04/06/2020 13:22:44 EDT by LIVE BANGURA, RN) Alcohol: Alcohol Use History No. (Last Updated: 01/07/2020 09:57:05 EDT by JOLENE GRIMALDO RN) Alcohol Use History No. Use in Last 12 Months: No. (Last Updated: 04/06/2020 13:22:44 EDT by LIVE BANGURA, RN) Substance Abuse: Drug Use Hx: No. Use in Last 12 Months: No. (Last Updated: 04/06/2020 13:22:44 EDT by LIVE BANGURA, RN) Height and Weight, Clinical Dosing Height Source : Stated Height Entry Format : [place] Height, Feet : 6 ft(Converted to: 183 cm, 72 Inch) Height, Inches : 1 Inch(Converted to: 0 ft 1 Inch, 2.54 cm) Clinical Height : 185.42 cm Weight Source : Standing scale Weight Entry Format : [place] Clinical Dosing Weight : 181.82 kg Weight, Pounds : 400 lb Body Surface Area (BSA) : 2.89 m2 Body Mass Index : 52.9 kg/m2 (>HHI) Jeff Body Weight : 79 kg Jacki Carlson RN - 04/17/2020 10:51 EDT Infectious Disease History Has the patient ever been tested for COVID-19? : Yes, Patient stated results Negative Where was the COVID-19 Testing completed? : [facility] COVID19 Screening : No Experiencing Infectious Disease Symptoms : No symptoms Physical contact outside [place] in the last 30 days : No Infectious Disease Symptoms Score : 0 Infectious Disease History : Chicken pox/Shingles, Influenza, Mononucleosis Active Surveillance Screen Assessment : Patient does not meet any of above criteria Active Surveillance Screen Negative : Yes Exposure to Contagious Illness : No Tuberculosis Symptoms : None Jacki Carlson RN - 04/17/2020 10:51 EDT Tetanus Immunization Status Previous Tetanus Immunizations : No qualifying data available. Tetanus Immunization : Greater than 5 years Jacki Carlson RN - 04/17/2020 10:51 EDT Influenza Vaccine Asmt, Adult Previous Vaccines from Immunization Schedule : No qualifying data available. Influenza Immunization, Current Season : Yes Jacki Carlson RN - 04/17/2020 10:51 EDT Pneumococcal Vaccine Previous Vaccines from Immunization Schedule : No qualifying data available. Pneumonia Immunization Received : No Pneumococcal Risk Assessment < Age 65 : None Jacki Carlson RN - 04/17/2020 10:51 EDT Order Details Transport Mode Order Detail : Bed (including specialty) Order Detail : N/A IV Order Detail : 1 Oxygen Order Detail : 1 Nurse Collect Order Detail : 0 Lift/Transfer : Moderate assist Jacki Carlson RN - 04/17/2020 10:51 EDT Nutrition History Feeding Ability : Independent Adaptive Feeding Equipment : Regular Eating Poorly Due to Decreased Appetite : No Unplanned Weight Loss in Past 3-6 Months : No Malnutrition Screening Tool Total(mal) : 0 Malnutrition Screening Tool Risk Level : Patient not at risk Jacki Carlson RN - 04/17/2020 10:51 EDT [place] Suicide Severity Rating Scale (C-SSRS) CSSRS Past Month Wish to be : No CSSRS Past Month Suicidal Thoughts : No CSSRS Lifetime Suicide Behavior : No Suicide Severity Rating Score : 0 Suicide Severity Rating : No Additional Care Required at this time Jacki Carlson RN - 04/17/2020 10:51 EDT Psychosocial History Does Someone Depend on You for Care? : No Do You Have a History of the Following? : Patient denies history Currently in Unsafe Situation : No Do You Have a Support System? : Yes Jacki Carlson RN - 04/17/2020 10:51 EDT Sleep Apnea Risk Assmt BiPAP/CPAP Ordered for Home Use : Yes Hx of Obstructive Sleep Apnea Diagnosis : Yes BiPAP/CPAP Used at Home : Yes Age over 50 Years Old : Yes Gender Male : Yes Jacki Carlson RN - 04/17/2020 10:51 EDT Spiritual/Cultural Needs Significant Loss/Crisis in Past 3 Years : No Any Spiritual/Cultural Needs or Requests : No Jacki Carlson RN - 04/17/2020 10:51 EDT Valuables and Belongings Valuables and Belongings : Clothing, Jewelry, Personal items, Assistive devices Clothing : Common streetwear Clothing Disposition : Bedside, Sent to locker Jewelry : Ring, Watch Jewelry Disposition : Bedside, Sent to locker Personal Items : Cell phone, Credit cards, Wallet Personal Items Disposition : Bedside, Sent to locker Assistive Devices From Home : Cane Assistive Device Disposition : Bedside, Sent to locker Jacki Carlson RN - 04/17/2020 10:51 EDT documented in this encounter Plan of Treatment Not on file documented as of this encounter Visit Diagnoses Not on filedocumented in this encounter
--- OUTSIDE RECORDS SUMMARY | 2025-10-18 08:59 | XMS_ITS | Encounter Summary ---
Author Organization [employer] ([place], [place], [place], [place], [place]) Address [address] [place] [address] Care Team Providers Care Rural Mail Carrier Name Role Phone Unavailable Primary Care Provider Unavailabl e Encounter Details Date Type Department Care Team (Late st Contact Info) Description 04/17/2020 Transcribed Document [facility] [place] [address] [place] [address] ProviderGabe MD [address] [place] [address] Social History Tobacco Use Types Packs/Day Years Used Date Smoking Tobacco: Never Assessed Sex and Gender Information Value Date Recorded Sex Assigned at Not on file Legal Sex Male 3:36 PM CDT Gender Identity Not on file Sexual Orientation Not on file documented as of this encounter Miscellaneous Notes * Cerner Conversion Note - Gabe Hill MD - 04/17/2020 1:10 PM CDT Patient Education Materials Follows: What to expect after the Procedure: After the procedure, it is common to have: ?? Pain and swelling. ?? A small amount of blood or clear fluid coming from your incision for up to 7 days ?? It is normal to have a moderate amount of bleeding from the site of the drain that was pulled on the morning after surgery. You can hold pressure on the area for 3-5 minutes and cover with a bandage as needed. Diet: ?? Resume usual diet ?? No alcoholic beverages while taking pain medication ?? Drink 8-10 glasses of water a day to prevent constipation from pain medication ?? Increase fiber to help prevent constipation. Straining can cause increased pressure and pain in your incision area ?? Increase protein to promote healing Driving: ?? Do not drive until your health care provider approves. Ask your health care provider when it is safe to drive if you have an immobilizer on your knee. ?? Do not drive or operate heavy machinery while taking prescription pain medicine. ?? Do not drive for 24 hours if you received a sedative. Activity: ?? Do not lift anything that is heavier than 10 lb (4.5 kg) until your health care provider approves. ?? No strenuous activity ?? Avoid high-impact activities, including running, jumping rope, and jumping jacks. ?? Avoid sitting for a long time without moving. Get up and move around at least every few hours. ?? Keep legs elevated while seated and place surgery leg on 2-3 pillows, this will decrease swelling ?? Continue using walker until cleared by physical therapy Bathing: ?? Do not take baths, swim, or use a hot tub for one month after surgery. ?? May shower on the third day after surgery by covering incision with Glad Brand Press and Seal saran wrap. After showering, dry off completely BEFORE removing saran wrap. ?? Use Press and Seal saran wrap to shower for one month after surgery ?? You must be seated to shower until you are no longer using the walker Other: ?? Use ice therapy for 20-30 minutes at a time and leave off for 20-30 minutes at a time. Always keep a towel or cloth between the ice pack and your skin ?? Continue to use Incentive Spirometer 10 times an hour while awake for one month to help prevent pneumonia Contact a health care provider if: ?? You have more redness, swelling, or pain around your incision. ?? You have more fluid or blood coming from your incision. ?? Your incision or drain site feels warm to the touch. ?? You have pus or a bad smell coming from your incision. ?? You have a fever. ?? Your incision breaks open after your health care provider removes your sutures, skin glue, or adhesive tape. ?? Your prosthesis feels loose. ?? You have knee pain that does not go away. DVT: Blood Clot Blood clots are a common risk after an orthopedic surgery Symptoms: ?? Swelling of your leg or arm, especially if one side is much worse. ?? Warmth and redness of your leg or arm, especially if one side is much worse. ?? Pain in your arm or leg. If the clot is in your leg, symptoms may be more noticeable or worse when you stand or walk. ?? A feeling of pins and needles, if the clot is in the arm. The symptoms of a DVT that has traveled to the lungs (pulmonary embolism, PE) usually start suddenly and include: ?? Shortness of breath while active or at rest. ?? Coughing or coughing up blood or blood-tinged mucus. ?? Chest pain that is often worse with deep breaths. ?? Rapid or irregular heartbeat. ?? Feeling light-headed or dizzy. ?? Fainting. ?? Feeling anxious. ?? Sweating. There may also be pain and swelling in a leg if that is where the blood clot started. How is this prevented? ?? Exercise regularly. For at least 30 minutes every day, engage in: -Activity that involves moving your arms and legs. -Activity that encourages good blood flow through your body by increasing your heart rate. ?? Exercise your arms and legs every hour during long-distance travel (over 4 hours). ?? Drink plenty of water and avoid drinking alcohol while traveling. ?? Avoid sitting or lying in bed for long periods of time without moving your legs. ?? Maintain a weight that is appropriate for your height. Ask your health care provider what weight is healthy for you. ?? If you are a woman who is over 35 years of age, avoid unnecessary use of medicines that contain estrogen. These include control pills. ?? Do not smoke, especially if you take estrogen medicines. If you need help quitting, ask your health care provider. ?? Wear compression stockings (if told by your health care provider) to help prevent blood clots from forming. High Fiber/High Protein Diet High fiber foods: To prevent constipation Grains Whole-grain breads. Multigrain cereal. Oats and oatmeal. Brown rice. Barley. Bulgur wheat. Millet. Bran muffins. Popcorn. Teaberry wafer crackers. Vegetables Sweet potatoes. Spinach. Kale. Artichokes. Cabbage. Broccoli. Green peas. Carrots. Squash. Fruits Berries. Pears. Apples. Oranges. Avocados. Prunes and raisins. Dried figs. Meats and Other Protein Sources [place], kidney, dhillon, and soy beans. Split peas. Lentils. Nuts and seeds. Dairy Fiber-fortified yogurt. Beverages Fiber-fortified soy milk. Fiber-fortified orange juice. Other Fiber bars. High-protein foods: To promote healing High-protein foods contain 4 grams (4 g) or more of protein per serving. They include: ?? Beef, ground sirloin (cooked) - 3 oz have 24 g of protein. ?? Cheese (hard) - 1 oz has 7 g of protein. ?? Chicken breast, boneless and skinless (cooked) - 3 oz have 13.4 g of protein. ?? Cottage cheese - 1/2 cup has 13.4 g of protein. ?? Egg - 1 egg has 6 g of protein. ?? Fish, filet (cooked) - 1 oz has 6-7 g of protein. ?? Garbanzo beans (canned or cooked) - 1/2 cup has 6-7 g of protein. ?? Kidney beans (canned or cooked) - 1/2 cup has 6-7 g of protein. ?? Delgadillo (cooked) - 3 oz has 24 g of protein. ?? Milk - 1 cup (8 oz) has 8 g of protein. ?? Nuts (peanuts, pistachios, almonds) - 1 oz has 6 g of protein. ?? Peanut butter - 1 oz has 7-8 g of protein. ?? Pork tenderloin (cooked) - 3 oz has 18.4 g of protein. ?? Pumpkin seeds - 1 oz has 8.5 g of protein. ?? Soybeans (roasted) - 1 oz has 8 g of protein. ?? Soybeans (cooked) - 1/2 cup has 11 g of protein. ?? Soy milk - 1 cup (8 oz) has 5-10 g of protein. ?? Soy or vegetable aditi - 1 aditi has 11 g of protein. ?? [place]on seeds - 1 oz has 5.5 g of protein. ?? Tofu (firm) - 1/2 cup has 20 g of protein. ?? Tuna (canned in water) - 3 oz has 20 g of protein. ?? Yogurt - 6 oz has 8 g of protein. Fall Prevention ?? Use night lights. ?? Install grab bars by the toilet and in the tub and shower. Do not use towel bars as grab bars. ?? Use non-skid mats or decals on the floor of the tub or shower. ?? If you need to sit down while you are in the shower, use a plastic, non-slip stool. ?? Keep the floor dry. Immediately clean up any water that spills on the floor. ?? Remove soap buildup in the tub or shower on a regular basis. ?? Remove throw rugs and other tripping hazards from the floor. ?? Place frequently used items in [id number] places ?? Keep electrical cables out of the way. ?? Do not leave any items on the stairs. ?? Make sure that there are handrails on both sides of the stairs. Fix handrails that are broken or loose. Make sure that handrails are as long as the stairways. ?? Check any carpeting to make sure that it is firmly attached to the stairs. Fix any carpet that is loose or worn. ?? Avoid having throw rugs at the top or bottom of stairways, or secure the rugs with carpet tape to prevent them from moving. ?? Wear closed-toe shoes that fit well and support your feet. Wear shoes that have rubber soles or low heels. ?? Use mobility aids as needed, such as canes, walkers, scooters, and crutches. ?? Turn on lights if it is dark. Replace any light bulbs that burn out. ?? Set up furniture so that there are clear paths. Keep the furniture in the same spot. ?? Be aware of any and all pets. ?? Review your medicines with your healthcare provider. Some medicines can cause dizziness or changes in blood pressure, which increase your risk of falling. Hand Washing You should wash your hands whenever you think they are dirty. You should also wash your hands: ??? After: ?? Working or playing outside. ?? Touching an animal or its toys or leash. ?? Handling livestock. ?? Using the bathroom. ?? Using household laboratory administrative director or toxic chemicals. ?? Touching or taking out the garbage. ?? Touching anything dirty around your home. ?? Handling soiled clothes or rags. ?? Taking care of a sick child. This includes touching used tissues, toys, and clothes. ?? Sneezing, coughing, or blowing your nose. ?? Using public transportation. ?? Shaking hands. ?? Using a phone, including your mobile phone. ?? Touching money. ??? Before and after: ?? Preparing food. ?? Feeding a baby or young child. ?? Eating. ?? Visiting or taking care of someone who is sick. ?? Changing a diaper. ?? Changing a bandage (dressing) or taking care of an injury or wound. ?? Giving or taking medicine. If soap and clean water are not available, use an alcohol-based wipe, spray, or hand gel. Use a hand-sanitizing agent that contains at least 60% alcohol. If you are preparing food, hand sanitizers are not recommended as a substitute for hand washing. Walker Use To Walk With a Front-Wheeled Walker: 1. Slide your front-wheeled walker one step-length in front of you. Your toes should be farther forward than the back legs of your walker. 2. Hold on to the walker for support, and step your weaker (surgery) leg into the middle of the walker. 3. Step your stronger leg forward to land next to your weaker leg. 4. Repeat the process for each step. ?? Always keep both feet within the width of the walker's legs or wheels. ?? When using your walker, you should not feel like you need to lean forward or to the side to keep your hands on the handgrips. ?? Make sure you are following any weight-bearing instructions that your health care provider has given you. ?? Be careful not to let the walker get too far ahead of you as you walk. ?? If your walker does not glide well over carpet, consider cutting an X into two tennis balls and placing the balls over the back legs of your walker. How to use a walker on a curb or step To Use a Walker to Step Up: 1. Put all four legs of the walker on the curb or step. 2. Get your feet as close to the curb or step as you can. 3. Test the steadiness of the walker by pressing down on the handgrips. 4. If the walker is steady, press down on it with your hands as you step up with your stronger leg. 5. Step up with your weaker leg. To Use a Walker to Step Down: 1. Put all four legs of the walker on the surface that is lower than the curb or step. 2. Get your feet as close to the curb or step as you can. 3. Test the steadiness of the walker by pressing down on the handgrips. 4. If the walker is steady, press down on it with your hands as you step down with your weaker leg. 5. Step down with your stronger leg. Dr. Leyva's ATHA ?? Adhere to all weight bearing restrictions. Use a scale daily to help familiarize what the weight bearing restriction feels like. (Example: 25lb weight bearing restriction on affected extremity). ?? Strictly use walker for 2 week to decrease the risk of post op femur fracture(Unless instructed to use for 6 weeks). ?? Elevate the affected knee and the entire lower extremity on 2 or 3 pillows at night for the first 6-8 weeks after surgery in order to help combat swelling. May shower on the 3rd day after surgery. Use [place] Press & Seal for showering. Incision area must remain completely dry for 14 days. ?? The current dressing may be removed on the 7th day after surgery and remain uncovered if it's completely dry. ?? May progress from a walker, to crutches, to a cane, to no support at the discretion of the therapist after 2 weeks. Do not progress to the next level until you are walking without a limp at the previous level. ?? Take your blood thinning medication as directed. ?? Prescribed postoperative pain medications should be weaned as tolerated, beginning 72 hours after surgery. Discontinue the 12 hour medications first. Try to be off all narcotics by 14 days after surgery. ?? Bilateral SHIRAZ hose are to be worn at all times for DVT prophylaxis for 6 weeks. Fall Prevention in the Home, Adult Falls can cause injuries. They can happen to people of all ages. There are many things you can do to make your home safe and to help prevent falls. Ask for help when making these changes, if needed. What actions can I take to prevent falls? General Instructions ??? Use good lighting in all rooms. Replace any light bulbs that burn out. ??? Turn on the lights when you go into a dark area. Use night-lights. ??? Keep items that you use often in ozvn-iu-bglvo places. Lower the shelves around your home if necessary. ??? Set up your furniture so you have a clear path. Avoid moving your furniture around. ??? Do not have throw rugs and other things on the floor that can make you trip. ??? Avoid walking on wet floors. ??? If any of your floors are uneven, fix them. ??? Add color or contrast paint or tape to clearly iraida and help you see: ? Any grab bars or handrails. ? First and last steps of stairways. ? Where the edge of each step is. ??? If you use a stepladder: ? Make sure that it is fully opened. Do not climb a closed stepladder. ? Make sure that both sides of the stepladder are locked into place. ? Ask someone to hold the stepladder for you while you use it. ??? If there are any pets around you, be aware of where they are. What can I do in the bathroom? Keep the floor dry. Clean up any water that spills onto the floor as soon as it happens. ??? Remove soap buildup in the tub or shower regularly. ??? Use non-skid mats or decals on the floor of the tub or shower. ??? Attach bath mats securely with double-sided, non-slip rug tape. ??? If you need to sit down in the shower, use a plastic, non-slip stool. ??? Install grab bars by the toilet and in the tub and shower. Do not use towel bars as grab bars. What can I do in the bedroom? Make sure that you have a light by your bed that is easy to reach. ??? Do not use any sheets or blankets that are too big for your bed. They should not hang down onto the floor. ??? Have a firm chair that has side arms. You can use this for support while you get dressed. What can I do in the kitchen? Clean up any spills right away. ??? If you need to reach something above you, use a strong step stool that has a grab bar. ??? Keep electrical cords out of the way. ??? Do not use floor icelandic or wax that makes floors slippery. If you must use wax, use non-skid floor wax. What can I do with my stairs? Do not leave any items on the stairs. ??? Make sure that you have a light switch at the top of the stairs and the bottom of the stairs. If you do not have them, ask someone to add them for you. ??? Make sure that there are handrails on both sides of the stairs, and use them. Fix handrails that are broken or loose. Make sure that handrails are as long as the stairways. ??? Install non-slip stair treads on all stairs in your home. ??? Avoid having throw rugs at the top or bottom of the stairs. If you do have throw rugs, attach them to the floor with carpet tape. ??? Choose a carpet that does not hide the edge of the steps on the stairway. ??? Check any carpeting to make sure that it is firmly attached to the stairs. Fix any carpet that is loose or worn. What can I do on the outside of my home? Use bright outdoor lighting. ??? Regularly fix the edges of walkways and driveways and fix any cracks. ??? Remove anything that might make you trip as you walk through a door, such as a raised step or threshold. ??? Trim any bushes or trees on the path to your home. ??? Regularly check to see if handrails are loose or broken. Make sure that both sides of any steps have handrails. ??? Install guardrails along the edges of any raised decks and porches. ??? Clear walking paths of anything that might make someone trip, such as tools or rocks. ??? Have any leaves, snow, or ice cleared regularly. ??? Use sand or salt on walking paths during winter. ??? Clean up any spills in your garage right away. This includes grease or oil spills. What other actions can I take? Wear shoes that: ? Have a low heel. Do not wear high heels. ? Have rubber bottoms. ? Are comfortable and fit you well. ? Are closed at the toe. Do not wear open-toe sandals. ??? Use tools that help you move around (mobility aids) if they are needed. These include: ? Canes. ? Walkers. ? Scooters. ? Crutches. ??? Review your medicines with your doctor. Some medicines can make you feel dizzy. This can increase your chance of falling. Ask your doctor what other things you can do to help prevent falls. Where to find more information ??? Centers for Disease Control and Prevention, [place]: https://cdc.gov ??? [employer] [place] [employer]: https://gz3itzn.cody.nih.gov Contact a doctor if: ??? You are afraid of falling at home. ??? You feel weak, drowsy, or dizzy at home. ??? You fall at home. Summary ??? There are many simple things that you can do to make your home safe and to help prevent falls. ??? Ways to make your home safe include removing tripping hazards and installing grab bars in the bathroom. ??? Ask for help when making these changes in your home. This information is not intended to replace advice given to you by your health care provider. Make sure you discuss any questions you have with your health care provider. Document Released: 08/02/2010 Document Revised: 05/21/2018 Document Reviewed: 05/21/2018 [employer] Patient Education ? 2020 [employer] documented in this encounter Plan of Treatment Not on file documented as of this encounter Visit Diagnoses Not on filedocumented in this encounter
--- OUTSIDE RECORDS SUMMARY | 2025-10-18 08:59 | XMS_ITS | Encounter Summary ---
Author Organization [employer] ([place], [place], [place], [place], [place]) Address [address] [place] [address] Care Team Providers Care Superintendent Name Role Phone Unavailable Primary Care Provider Unavailabl e Encounter Details Date Type Department Care Team (Late st Contact Info) Description 04/17/2020 Transcribed Document [facility] [place] Family Medicine [address] [place] [address] ProviderGabe MD [address] [place], [place] [id number] Social History Tobacco Use Types Packs/Day Years Used Date Smoking Tobacco: Never Assessed Sex and Gender Information Value Date Recorded Sex Assigned at Not on file Legal Sex Male 3:36 PM CDT Gender Identity Not on file Sexual Orientation Not on file documented as of this encounter Miscellaneous Notes * Cerner Conversion Note - Gabe ProviderMD - 04/17/2020 2:03 PM CDT Final Discharge Planning Entered On: 04/17/2020 14:03 EDT Performed On: 04/17/2020 14:03 EDT by EKATERINA UNDERWOOD, Care Management-Glass Setter Final Discharge Planning Discharge Arrangements : Patient Post-Acute Information Patient Name: WAI MORENO Gender: Male : [birth year] Age: 54 Years No Post-Acute Placement(s) Listed No Post-Acute Service(s) Listed No [place] Referral(s) Listed Patient Offered Choice/Affiliations Explained : Yes Designation of Choice Signed : Yes Discharge To Care Management : Home Health Services (Related/SOC within 3 days)-EKATERINA YEPEZ, Care Management-Glass Setter - 04/17/2020 14:03 EDT Final Narrative Note Final Narrative Note : [facility] confirmed with EKATERINA Villeda, Care Management-Glass Setter - 04/17/2020 14:03 EDT Electronically signed by [facility] Conversion Wire Drawing Setter Cerner at 02/06/2023 2:55 PM CDT documented in this encounter Plan of Treatment Not on file documented as of this encounter Visit Diagnoses Not on filedocumented in this encounter
--- OUTSIDE RECORDS SUMMARY | 2025-10-18 08:59 | XMS_ITS | Encounter Summary ---
Author Organization [employer] ([place], [place], [place], [place], [place]) Address [address] [place] [address] Care Team Providers Care Build Engineer Name Role Phone Unavailable Primary Care Provider Unavailabl e Encounter Details Date Type Department Care Team (Late st Contact Info) Description 04/17/2020 Transcribed Document [facility] [place] [address] [place] [address] ProviderGabe MD [address] [place] [address] Social History Tobacco Use Types Packs/Day Years Used Date Smoking Tobacco: Never Assessed Sex and Gender Information Value Date Recorded Sex Assigned at Not on file Legal Sex Male 3:36 PM CDT Gender Identity Not on file Sexual Orientation Not on file documented as of this encounter Miscellaneous Notes * Cerner Conversion Note - Gabe ProviderMD - 04/17/2020 8:10 AM CDT [facility] PACU Summary Primary Physician: FANY FLOYD MD-ORT Finalized Date/Time: 04/17/20 10:37:30 Pt. Name: WAI MORENO D.O.B./Sex: 1965 Male Med Rec #: [id number] Physician: FANY FLOYD MD-ORT Financial #: [id number] Pt. Type: O Room/Bed: EAS/4 Admit/Disch: 04/17/20 04:56:00 - Institution: [facility] PACU Case Times Entry 1 In PACU I 04/17/20 09:46:00 Ready for PACU 04/17/20 10:35:00 Discharge Discharge from PACU 04/17/20 10:35:00 I Last Modified By: Tanya Hannon RN 04/17/20 10:37:20 [facility] PACU Case Times Audit 04/17/20 10:37:20 Motor Vehicle Assembler: DENISE Modifier: CARRIEC 1 <*> Ready for PACU Discharge 04/17/20 10:16:00 1 <+> Discharge from PACU I Finalized By: Tanya Hannon, RN Document Signatures Signed By: Tanya Hannon RN 04/17/20 10:37 Electronically signed by [facility] Conversion Admeasurer Cerner at 02/06/2023 2:58 PM CDT documented in this encounter Plan of Treatment Not on file documented as of this encounter Visit Diagnoses Not on filedocumented in this encounter
--- NOTE | 2025-10-18 09:00 | CT_ITS ---
FINAL REPORT TECHNIQUE: Thin section axial images were obtained from the lung apices through the upper abdomen without contrast. Coronal and sagittal reconstructed images were obtained and reviewed. This study was performed with techniques to keep radiation doses as low as reasonably achievable (ALARA). Individualized dose reduction techniques using automated exposure control or adjustment of mA and/or kV according to the patient's size were employed. CLINICAL HISTORY: Pneumonia, lung nodule COMPARISON: None FINDINGS: There is no mediastinal, hilar, or axillary lymphadenopathy. No pleural or pericardial effusion. There is evidence of prior granulomatous disease. The lungs are otherwise clear. There are no suspicious nodules. There is no consolidation. Limited, unenhanced evaluation of the upper abdomen is without acute abnormality. There is no acute osseous abnormality. IMPRESSION: No acute intrathoracic abnormality. No suspicious nodules. Reviewed, Interpreted and Dictated by Maxine Danielson MD Transcribed by Amparo Griffith Authenticated and [facility]
--- OUTSIDE RECORDS SUMMARY | 2025-10-18 09:00 | XMS_ITS | Encounter Summary ---
Author Organization [employer] ([place], [place], [place], [place], [place]) Address [address] [place] [address] Care Team Providers Care Sales Service Coordinator Name Role Phone Unavailable Primary Care Provider Unavailabl e Encounter Details Date Type Department Care Team (Late st Contact Info) Description 04/17/2020 Transcribed Document [facility] [place] Family Medicine [address] [place] [address] ProviderGabe MD [address] [place] [address] Social History Tobacco Use Types Packs/Day Years Used Date Smoking Tobacco: Never Assessed Sex and Gender Information Value Date Recorded Sex Assigned at Not on file Legal Sex Male 3:36 PM CDT Gender Identity Not on file Sexual Orientation Not on file documented as of this encounter Miscellaneous Notes * Cerner Conversion Note - Gabe ProviderMD - 04/17/2020 10:18 AM CDT Evaluation, Occupational Therapy Entered On: 04/17/2020 11:41 EDT Performed On: 04/17/2020 11:41 EDT by KATHY MILLAN OTR/L General Information, OT Visit Type, OT : Initial evaluation Patient Orders : Order Date Order Ordering 04/17/2020 10:19 OT Evaluation and Treatment Ordered By: FANY LEYVA MD-ORFrancesco 04/17/2020 10:19 OT Treatment Instructions Ordered By: FANY LEYVA MD-ORT Active Diagnoses : No Qualifying Diagnoses Therapy Diagnosis, OT : aftercare following joint replacement surgery R ATHA Admission Date : 04/17/2020 04:56 Assisted by, OT : Physical Therapist Personal Devices : Personal Devices No Devices Recorded Assistive Devices : Assistive Devices Cane Precautions in Place : Fall prevention measures General Information Comment, OT : pt is a pleasant 54 y.o. male admitted s/p R ATHA performed by Dr. Leyva and is WBAT. KATHY MILLAN OTR/Leslie - 04/17/2020 11:41 EDT General Status Patient Received Status : Supine in bed, Other: present, drain, IV, RN Treatment Start Time : 04/17/2020 10:55 EDT Patient Left Status : Up in chair, Chair alarm activated, RN/PCT informed, Family/Visitors at bedside, All needs met and within reach, Other: and TICKET SALES SUPERVISOR present, drain, FITNESS SUPERVISOR/PCT Informed Comment : RN Ok'd to tx, ID and verified Treatment End Time : 04/17/2020 11:20 EDT Treatment Time : 25 Minute(s) KATHY MILLAN OTR/Leslie - 04/17/2020 11:41 EDT History and Environment, OT Living Situation, Therapy : Home Patient Lives With : Dependent Child/Children, Spouse Persons Assisting Patient at Home : Spouse Professional Skilled Services : None Persons Providing Information : Patient Home Equipment, Therapy : Walker Walker : Walker, front wheel Walker Comment : [facility] Setup : One story Stairs : Yes Stair Location(s) : Outside Outside Stairs, Number of Steps : 5 Railing Outside : Yes Outside Railing Position : Bilateral KATHY MILLNA OTR/Leslie - 04/17/2020 11:41 EDT Prior LOF Bathing, OT : Independent Prior LOF Bed Mobility : Independent Prior LOF Upper Body Dressing, OT : Independent Prior LOF Lower Body Dressing, OT : Independent Prior LOF Toileting : Independent Prior LOF Transfer : Independent Prior LOF Grooming, OT : Independent Prior LOF for IADLs, OT : Independent KATHY MILLAN OTR/Leslie - 04/17/2020 11:41 EDT Upper Extremity Right UE Active ROM : WFL Right UE Strength : WFL Left UE Active ROM : WFL Left UE Strength : WFL KATHY MILLAN OTR/Leslie - 04/17/2020 11:41 EDT Self Care/Home Management, OT Lower Body Dressing Assist Level, OT : Assist, moderate Lower Body Dressing Device Comment, OT : mod assist to don shorts, pt education on LB dressing technique to complete , able to assist Bed/Chair/WC Transfer Assist Level : Supervision or set-up Bed/Chair/WC Transfer Device : Belt, gait, Walker, front wheel Bed/Chair/WC Device Comment : CGA and cues for safety/hand placement KATHY MILLAN OTR/L - 04/17/2020 11:41 EDT Mobility Device/Prosthesis/Wt Bearing Weight Bearing Status Maintained : Yes Weight Bearing Status : As tolerated Functional Mobility Device : Gait belt, Walker, bariatric Functional Mobility with Brace/Splint : No MONTY MINA CHAVEZR/L - 04/17/2020 11:41 EDT Functional Mobility Mobility Grid Supine to Sit : Rehab Minimal assistance Sit to Stand : Supervision/set-up Bed to Chair : Supervision/set-up Stand to Sit : Supervision/set-up MONTY NAYE CHAVEZ/Leslie - 04/17/2020 11:41 EDT Functional MobilityComment : gait belt donned, using vince rw pt completes functional mobility CGA/SBA to therapy gym , standing rest breaks as needed. assisted PT with stair mgt for safe entry into home. pt transfer to w/c assist back to room , transfer to recliner with SBA/CGA. pt education throughout for safety/hand placement . KATHY MILLAN OTR/Leslie - 04/17/2020 11:41 EDT Activity Tolerance, OT Activity Comment : WFL KATHY MILLAN OTR/Leslie - 04/17/2020 11:41 EDT Neurological/Sensory Overall Sensory Response : Intact KATHY MILLAN OTR/Leslie - 04/17/2020 11:41 EDT Cognition Assessment, OT Orientation : Oriented x 4 KATHY MILLAN OTR/L - 04/17/2020 11:41 EDT Education OT Occupational Therapy Education Grid Activity of Daily Living Training : Verbalizes understanding, Returns demonstration Caregiver Training : Verbalizes understanding (Comment: present for education [KATHY MILLAN OTR/Leslie - 04/17/2020 11:41 EDT] ) Functional Mobility Training : Verbalizes understanding, Returns demonstration Home Safety : Verbalizes understanding KATHY MILLAN OTR/Leslie - 04/17/2020 11:41 EDT Indication Assessment, OT Occupational Therapy Indicated : No Occupational Therapy Not Indicated : Other: pt is a fast track to discharge home today KATHY MILLAN OTR/Leslie - 04/17/2020 11:41 EDT Plan of Care, OT OT Tx Plan/Goals Established w Patient : No Reason OT Treatment/Plan Not Established : pt is scheduled as fast track to discharge home today Other OT Treatment Provided This Date : ADL KATHY MILLAN OTR/L - 04/17/2020 11:41 EDT Treatment Note Subjective Comment : pt agrees to tx Additional Objective Information : eval 10 ADL 15 Assessment : pt educated on/return demo LB Dressing techniques, safe transfers and education on home safety completed. pt's also present for education. no further acute care OT needs at this time. Plan for Treatment : pt is scheduled to discharge home today with as a fast track home. plans to have home health MONTY KATHY OTRony/L - 04/17/2020 11:41 EDT Pain Assessment Pain Scaled Used : FACES Pain Score Pre-Intervention : 2 Location : Hip, right MONTY MINA CHAVEZR/L - 04/17/2020 11:41 EDT Image 1 - Images currently included in the form version of this document have not been included in the text rendition version of the form. [facility] OT Charges OT Selfcare/Hm Mgmt Ea 15 Min : 1 OT Eval Low Complexity : 1 MONTY MINA CHAVEZR/L - 04/17/2020 11:41 EDT documented in this encounter Plan of Treatment Not on file documented as of this encounter Visit Diagnoses Not on filedocumented in this encounter
--- OUTSIDE RECORDS SUMMARY | 2025-10-18 09:00 | XMS_ITS | Encounter Summary ---
Author Organization [employer] ([place], [place], [place], [place], [place]) Address [address] [place] [address] Care Team Providers Care Tennis Net Maker Name Role Phone Unavailable Primary Care Provider Unavailabl e Encounter Details Date Type Department Care Team (Late st Contact Info) Description 04/17/2020 Transcribed Document [facility] [place] Family Medicine [address] [place] [address] ProviderGabe MD [address] [place] [address] Social History Tobacco Use Types Packs/Day Years Used Date Smoking Tobacco: Never Assessed Sex and Gender Information Value Date Recorded Sex Assigned at Not on file Legal Sex Male 3:36 PM CDT Gender Identity Not on file Sexual Orientation Not on file documented as of this encounter Miscellaneous Notes * Cerner Conversion Note - Gabe ProviderMD - 04/17/2020 2:03 PM CDT On Going Discharge Planning Entered On: 04/17/2020 14:03 EDT Performed On: 04/17/2020 14:03 EDT by EKATERINA UNDERWOOD, Care Management-Turkey Picker Care Management Progress Note Discharge Arrangements : Patient Post-Acute Information Patient Name: WAI MORENO Gender: Male : [birth year] Age: 54 Years No Post-Acute Placement(s) Listed No Post-Acute Service(s) Listed No [place] Referral(s) Listed Discharge Options Discussed with Patient : DME, Home Health Barriers to Discharge Identified : None identified Designation of Choice Signed : Yes Patient Offered Choice/Affiliations Explained : Yes List/Info Provided Pt/Fam/Support Person : Home care Were Referrals Sent to Post Acute Providers : Yes EKATERINA UNDERWOOD Care Management-Turkey Picker - 04/17/2020 14:03 EDT Electronically signed by Jamila, [facility] Conversion Locomotive Crane Engineer Cerner at 02/06/2023 2:51 PM CDT documented in this encounter Plan of Treatment Not on file documented as of this encounter Visit Diagnoses Not on filedocumented in this encounter
--- OUTSIDE RECORDS SUMMARY | 2025-10-18 09:00 | XMS_ITS | Encounter Summary ---
Author Organization [employer] ([place], [place], [place], [place], [place]) Address [address] [place] [address] Care Team Providers Care Rat Trapper Name Role Phone Unavailable Primary Care Provider Unavailabl e Encounter Details Date Type Department Care Team (Late st Contact Info) Description 04/17/2020 Transcribed Document [facility] [place] Family Medicine [address] [place] [address] ProviderGabe MD [address] [place] [address] Social History Tobacco Use Types [...] ProviderMD - 04/17/2020 10:18 AM CDT Evaluation, Physical Therapy Entered On: 04/17/2020 11:50 EDT Performed On: 04/17/2020 10:55 EDT by KAT ISRAEL, PT General Information, PT Visit Type, PT : Initial evaluation Patient Orders : Order Date Order Ordering 04/17/2020 10:19 PT Evaluation and Treatment Ordered By: FANY FLOYD MD-ORT 04/17/2020 10:19 PT Treatment Instructions Ordered By: FANY FLOYD MD-ORT 04/17/2020 10:19 PT Treatment Instructions Ordered By: FANY FLOYD MD-ORT 04/17/2020 10:19 PT Treatment Instructions Ordered By: FANY FLOYD MD-ORT 04/17/2020 10:19 PT Treatment Instructions Ordered By: FANY FLOYD MD-ORT 04/17/2020 10:19 PT Treatment Instructions Ordered By: FANY FLOYD MD-ORT Active Diagnoses : No Qualifying Diagnoses Therapy Diagnosis, PT : aftercare following RTHA-anterior Admission Date : 04/17/2020 04:56 Assisted by, PT : Occupational Therapist, blood bank laboratory technician/aide Personal Devices : Personal Devices No Devices Recorded Assistive Devices : Assistive Devices KAT Greer, PT - 04/17/2020 11:32 EDT General Status Patient Received Status : Supine in bed, Bed alarm activated Treatment Start Time : 04/17/2020 10:55 EDT Patient Left Status : Up in chair, Chair alarm activated, RN/PCT informed, Family/Visitors at bedside, Communication board completed, All needs met and within reach RN/PCT Informed Comment : Yes, RN approved pt for PT eval and pt agreeable Treatment End Time : 04/17/2020 11:27 EDT Treatment Time : 32 Minute(s) KAT ISRAEL, PT - 04/17/2020 11:32 EDT History and Environment Living Situation, Therapy : Home Patient Lives With : Dependent Child/Children, Spouse Persons Assisting Patient at Home : Spouse Professional Skilled Services : None Persons Providing Information : Patient, Spouse Home Equipment Therapy, PT : Walker Walker : Walker, front wheel Walker Comment : [facility] Home Setup : One story Stairs : Yes Stair Location(s) : Outside Outside Stairs, Number of Steps : 5 Railing Outside : Yes Outside Railing Position : Bilateral KAT ISRAEL, PT - 04/17/2020 11:32 EDT Prior Level of Function PT GRID Prior LOF Ambulation, Household : Independent Prior LOF Ambulation, Community : Independent Prior LOF Bed Mobility : Independent Prior LOF Toileting : Independent Prior LOF Transfer : Independent KAT ISRAEL, PT - 04/17/2020 11:32 EDT Upper Extremity Upper Extremity Dominance : Right Right UE Active ROM : WFL Right UE Strength : WFL Left UE Active ROM : WFL Left UE Strength : WFL KAT ISRAEL, PT - 04/17/2020 11:32 EDT Lower Extremity RLE Active ROM : Impaired Right LE Active Assist ROM : Impaired RLE Passive ROM : Impaired Right LE Strength : Impaired LLE Active ROM : WFL Left LE Strength : WFL Lower Extremity Comment : RLE is impaired secondary to surgery 4/5 grossly assessed KAT ISRAEL, PT - 04/17/2020 11:32 EDT Functional Mobility Mobility Grid Bed Scooting : Rehab Minimal assistance Supine to Sit : Rehab Minimal assistance Sit to Stand : Supervision/set-up Bed to Chair : Supervision/set-up Stand to Sit : Supervision/set-up KAT ISRAEL, PT - 04/17/2020 11:32 EDT Gait Training/Assessment, PT Weight Bearing Status : As tolerated Gait Assistance Level : Assist, minimal Walking Distance : 200 feet with Dennis-RWX, supervision to CGAx1, WBAT, verbal cues for correct gait sequence and for reciprocal gait pattern, antalgic gait on RLE Ambulatory Devices : Gait belt, Walker, bariatric Gait Deviations : Yes Gait Training Comment : see above Stair(s) Ascend/Descend Training : Yes Stair Training Comment : Pt ascended and descended 4 steps with bilateral rails and supervision, verbal cues for correct gait sequence on stairs. present for training KAT ISRAEL, PT - 04/17/2020 11:32 EDT Neuromuscular Reeducation, PT Balance Comment : good sitting and standing KAT ISRAEL, PT - 04/17/2020 11:32 EDT Neurological/Sensory Overall Sensory Response : Intact Light Touch Response : Intact KAT ISRAEL, PT - 04/17/2020 11:32 EDT Activity Tolerance, PT Activity Comment : good KAT ISRAEL, PT - 04/17/2020 11:32 EDT Cognition Assessment, PT Orientation : Oriented x 4 Attention Assessment : Present KAT ISRAEL, PT - 04/17/2020 11:32 EDT Edu Topics Physical Therapy Education Grid Bed Mobility Training : Verbalizes understanding, Returns demonstration Gait Training : Verbalizes understanding, Returns demonstration Home Program/Exercises : Verbalizes understanding, Returns demonstration Role of Physical Therapy : Verbalizes understanding, Returns demonstration Safety : Verbalizes understanding, Returns demonstration Stair Training : Verbalizes understanding, Returns demonstration Transfer Training : Verbalizes understanding, Returns demonstration Use of Assistive Device : Verbalizes understanding, Returns demonstration KAT ISRAEL, PT - 04/17/2020 11:32 EDT Indication Assesessment, PT Physical Therapy Indicated : No Physical Therapy Not Indicated : Other: Pt does not require further skilled PT services in the acute care setting beyond this initial evaluation and education Interdisciplinary Consultation(s) Needed : No Potential Barriers To Therapy : None evident Rehabilitation Potential : Good KAT ISRAEL, PT - 04/17/2020 11:32 EDT Plan of Care, PT PT Tx Plan/Goals Established w Patient : No Reason Tx/Plan Not Established W/ Pt PT : Pt does not require further skilled PT services in the acute care setting beyond this initial evaluation and education PT Frequency Rehab : Daily Other PT Treatment Provided This Date : gait and stairs ther ex PT Duration Rehab : Other: eval only PT Treatments Planned : Other: eval only Plan of Care Comment, PT : eval only KAT ISRAEL, PT - 04/17/2020 11:32 EDT Treatment Note Subjective Comment : agreeable Patient's Response to Treatment : good Additional Objective Information : see eval Patient issued a written HEP and demonstrated each of the exercises x 10 reps to RLE of the following: Ankle pumps, quad sets, gluteal sets, hamstring sets, short and long arc quads and supine and seated heel slides. Assessment : Pt does not require further skilled PT services in the acute care setting beyond this initial evaluation and education Plan for Treatment : eval only KAT ISRAEL, PT - 04/17/2020 11:32 EDT Pain Assessment Pain Scaled Used : 0-10 Pain scale Pain Score Pre-Intervention : 10 Pain Score Post-Intervention. : 10 Pain Comment : RN aware KAT ISRAEL, PT - 04/17/2020 11:32 EDT Image 1 - Images currently included in the form version of this document have not been included in the text rendition version of the form. [place] PT Charges PT Therap. Exercise 15 min : 1 Gait Training Each 15 Min : 1 PT Eval Low Complexity : 1 KAT ISRAEL, PT - 04/17/2020 11:32 EDT Electronically signed by Jamila [facility] Conversion Android Ios Developer Cerner at 02/06/2023 3:14 PM CDT documented in this encounter Plan of Treatment Not on file documented as of this encounter Visit Diagnoses Not on filedocumented in this encounter
--- OUTSIDE RECORDS SUMMARY | 2025-10-18 09:00 | XMS_ITS | Encounter Summary ---
Author Organization [employer] ([place], [place], [place], [place], [place]) Address [address] [place] [address] Care Team Providers Care Regular Senior Care Provider Name Role Phone Unavailable Primary Care Provider Unavailabl e Encounter Details Date Type Department Care Team (Late st Contact Info) Description 04/17/2020 Transcribed Document [facility] [place] [address] [place] [address] ProviderGabe MD [address] [place] [address] Social History Tobacco Use Types [...] 04/17/2020 8:10 AM CDT [facility] Main [facility] PreOp Summary Primary Physician: FANY FLOYD MD-ORT Finalized Date/Time: 04/27/20 08:28:30 Pt. Name: WAI MORENO /Sex: 1965 Male Med Rec #: [id number] Physician: FANY FLOYD MD-ORT Financial #: [id number] Pt. Type: O Room/Bed: 424/1 Admit/Disch: 04/17/20 04:56:00 - 04/17/20 17:36:[address] [place] [place] PreOp Case Times Entry 1 In Preop 04/17/20 05:30:00 Ready for Holding n/a Room Patient Ready for 04/17/20 06:43:00 Surgery Patient Out of Preop 04/17/20 07:30:00 Patient Out of n/a Holding Room Last Modified By: TODD ALMAZAN 04/27/20 08:28:30 SJ PreOp Case Times Audit 04/27/20 08:28:30 Impregnation Operator: DENICE Modifier: [email or web address] <+> 1 Patient Out of Preop Finalized By: TODD ALMAZAN Document Signatures Signed By: TODD ALMAZAN 04/27/20 08:28 Electronically signed by Jamila [facility] Conversion Associate Entertainment Editor Cerner at 02/06/2023 3:19 PM CDT documented in this encounter Plan of Treatment Not on file documented as of this encounter Visit Diagnoses Not on filedocumented in this encounter
--- OUTSIDE RECORDS SUMMARY | 2025-10-18 09:00 | XMS_ITS | Encounter Summary ---
Author Organization [employer] ([place], [place], [place], [place], [place]) Address [address] [place] [address] Care Team Providers Care Pleater Hand Name Role Phone Unavailable Primary Care Provider Unavailabl e Encounter Details Date Type Department Care Team (Late st Contact Info) Description 04/17/2020 Transcribed Document [facility] [place] Family Medicine [facility] [address] ProviderGabe MD [address] [place], [place] [id number] Social History Tobacco Use Types Packs/Day Years Used Date Smoking Tobacco: Never Assessed Sex and Gender Information Value Date Recorded Sex Assigned at Not on file Legal Sex Male 3:36 PM CDT Gender Identity Not on file Sexual Orientation Not on file documented as of this encounter Miscellaneous Notes * Cerner Conversion Note - Gabe Hill MD - 04/17/2020 7:45 AM CDT Patient: WAI MORENO Age: 54 Years Sex: Male : 1965 Discharge Plan Ortho Discharge Summary Addendum Discharge: Home Procedure: Right ATHA Complications: None DVT Prophylaxis: Aspirin 81 mg tabs, 1 BID for 45 days. Script written, on chart WB Status: WBAT, USE WALKER FOR 2 WEEKS AND PROGRESS TO CANE TOLERATED WITH PT GUIDENCE. F/U in clinic 6 weeks Additional Instructions: Must walk with walker for 1st 2 weeks post op to decrease risk of post op femur fracture. Discharge Instructions: 1)Elevate the affected knee and the entire lower extremity on 2 or 3 pillows while sleeping at night for the first 6-8 weeks after surgery in order to help combat swelling in the lower extremities. 2) The patient may shower on the 3rd day after surgery but must keep the wound or dressing completely dry until 7 days postoperatively using glad press and seal. 3)The current dressing may be removed on the tenth day after surgery and the incision may remain uncovered if it is completely dry. 4) Call for wound drainage or excessive redness that is present beyond 10 days after surgery. 5) The patient may progress from a walker to crutches to a cane to no support at the discretion of the therapist after 2 weeks. The patient should not progress to the next level until they are walking without a limp at the previous level. 6) Tylenol, Oxycodone (assuming no allergy), Tramadol, and for severe pain Dilaudid will be used for post op pain. 7) Place pillow under operative thigh to keep hip flexed while sleeping. 8) The patient will be on blood thinner after surgery. Each patient's blood thinner may be different pending past medical history. It may be stopped at the discretion of the surgeon if wound problems develop. Bilateral SHIRAZ hose are to be worn daily for DVT prophylaxis. You may remove these for daily skin inspections, but otherwise these are to be worn at all times. Do not start or stop anticoagulation without discussing with Dr. Leyva first. Discharge Medications (8) Active amLODIPine 10 mg oral tablet 10 mg = 1 Tab, Oral, Daily gabapentin 600 mg oral tablet 600 mg = 1 Tab, Oral, TID hydroCHLOROthiazide-triamterene 50 mg-75 mg oral tablet 1 Tab, Oral, Daily lisinopril 20 mg oral tablet , Oral, Daily pravastatin 20 mg oral tablet , Oral, Daily Oxycodone 5mg 1-2 tabs every 6 hours PRN pain Dilaudid 2mg Q6hrs PRN (extreme pain only, this is not for management of pain but for rescue only) Tramadol 50mg 1 tab Q 6hrs PRN ECASA 81mg BID x 6 weeks Colace 100mg 1 tab daily documented in this encounter Plan of Treatment Not on file documented as of this encounter Visit Diagnoses Not on filedocumented in this encounter
--- OUTSIDE RECORDS SUMMARY | 2025-10-18 09:00 | XMS_ITS | Encounter Summary ---
Author Organization [employer] ([place], [place], [place], [place], [place]) Address [address] [place] [address] Care Team Providers Care Virtualization Architect Name Role Phone Unavailable Primary Care Provider Unavailabl e Encounter Details Date Type Department Care Team (Late st Contact Info) Description 01/07/2020 Transcribed Document [facility] [address] [place] [address] ProviderGabe MD [address] [place] [address] Social History Tobacco Use Types Packs/Day Years Used Date Smoking Tobacco: Never Assessed Sex and Gender Information Value Date Recorded Sex Assigned at Not on file Legal Sex Male 3:36 PM CDT Gender Identity Not on file Sexual Orientation Not on file documented as of this encounter Miscellaneous Notes * Cerner Conversion Note - Gabe Hill MD - 01/07/2020 3:29 PM CDT Patient Education Materials Follows: Moderate Conscious Sedation, Adult, Care After These [...] you are awake and alert. ??? Take gjye-pch-ueibqor and prescription medicines only as told by [...] 07/27/2014 Document Revised: 03/10/2017 Document Reviewed: 01/25/2017 [employer] Interactive Patient Education ? 2019 [employer] Cardiovascular Coronary Artery Disease, Male Coronary artery disease (CAD) is a condition in which the arteries that lead to the heart (coronary arteries) become narrow or blocked. The narrowing or blockage can lead to decreased blood flow to the heart. Prolonged reduced blood flow can cause a heart attack (myocardial infarction or CO). This condition may also be called coronary [...] these instructions at home: Medicines ??? Take lzgz-llt-lirjwul and prescription medicines only as told by [...] ? Limit how much you have to 0?2 drinks per day. ? Be aware of how much alcohol is in your drink. In the [place] one drink equals one 12 oz bottle of beer (355 mL), one 5 oz glass of wine (148 mL), or one 1? oz glass of hard liquor (44 mL). [...] 05/03/2015 Document Revised: 06/25/2019 Document Reviewed: 06/15/2019 [employer] Interactive Patient Education ? 2019 [employer]. Neurology Radial Site Care This sheet gives you [...] these instructions at home: Medicines ??? Take fuax-rkh-pzecdua and prescription medicines only as told by your health care provider. Insertion site care ??? Follow instructions from your health care provider about how to take care of your insertion site. Make sure you: ? Wash your hands with soap and water before you change your bandage (dressing). If soap and water are not available, use hand die maker apprentice. ? Change your dressing as told by [...] care provider approves. ??? You may shower 24?48 hours after the procedure, or as directed [...] 11/08/2011 Document Revised: 11/11/2018 Document Reviewed: 11/11/2018 [employer] Interactive Patient Education ? 2019 [employer]. Preventive Health Heart Disease Prevention Heart disease is the [...] alcohol, limit how much you have: ? 0?1 drink a day for women. ? 0?2 drinks a day for men. ??? Be aware of how much alcohol is in your drink. In the [place] one drink equals one typical bottle of beer (12 oz), one-half glass of wine (5 oz), or one shot of hard liquor (1? oz). Medicines ??? Take zjen-vgy-vioectg and prescription medicines only as told by [...] age 20, have your cholesterol checked every 4?6 years. If you have risk factors for [...] for Disease Control and Prevention: www.cdc.gov/heartdisease ??? [place] [employer]: www.heart.org ? Take a free [...] 05/20/2005 Document Revised: 10/21/2018 Document Reviewed: 10/21/2018 [employer] Interactive Patient Education ? 2019 [employer]. Radiology Transradial Angiogram Transradial angiogram is an imaging [...] including vitamins, herbs, eye drops, creams, and rvvw-vyy-wcgjskx medicines. ??? Any problems you or family [...] 06/30/2013 Document Revised: 05/24/2019 Document Reviewed: 09/09/2016 [employer] Interactive Patient Education ? 2019 [employer] documented in this encounter Plan of Treatment Not on file documented as of this encounter Visit Diagnoses Not on filedocumented in this encounter
--- OUTSIDE RECORDS SUMMARY | 2025-10-18 09:00 | XMS_ITS | Referral Summary ---
Author Organization [email or web address] ([place], [place], [place], [place], [place]) Address [address] [place] [address] Care Team Providers Care Permanent Mold Supervisor Name Role Phone Unavailable Primary Care Provider Unavailabl e Social History Tobacco Use Types Packs/Day Years Used Date Smoking Tobacco: Never Assessed Sex and Gender Information Value Date Recorded Sex Assigned at Not on file Legal Sex Male 3:36 PM CDT Gender Identity Not on file Sexual Orientation Not on file Plan of Treatment Not on file
--- OUTSIDE RECORDS SUMMARY | 2025-10-18 09:00 | XMS_ITS | Encounter Summary ---
Author Organization [employer] ([place], [place], [place], [place], [place]) Address [address] [place] [address] Care Team Providers Care Metal Bonding Crib Attendant Name Role Phone Unavailable Primary Care Provider Unavailabl e Encounter Details Date Type Department Care Team (Late st Contact Info) Description 04/17/2020 Transcribed Document [facility] [address] [place] [address] ProviderGabe MD [address] [place], [place] [id number] Social History Tobacco Use Types Packs/Day Years Used Date Smoking Tobacco: Never Assessed Sex and Gender Information Value Date Recorded Sex Assigned at Not on file Legal Sex Male 3:36 PM CDT Gender Identity Not on file Sexual Orientation Not on file documented as of this encounter Miscellaneous Notes * Cerner Conversion Note - Gabe Hill MD - 04/17/2020 11:04 AM CDT Initial Discharge Planning Entered On: 04/17/2020 11:08 EDT Performed On: 04/17/2020 11:04 EDT by EKATERINA UNDERWOOD Care Management-Maintenance And Operations Supervisor Initial Assessment I Previously Documented Living Environment : No qualifying data available. Living Situation : Home Patient Lives With : Dependent Child/Children, Spouse Is the Patient a Caregiver at Home? : No Emergency Contact #1 : Kaylin Emergency Contact #1 Emergency Contact #1 Relationship : Emergency Contact #2 : - Emergency Contact #2 Phone Number : - Emergency Contact #2 Relationship : - Enter Doctors Name : Caroline Carlos Does Patient have PCP Listed? : Yes EKATERINA UNDERWOOD Care Management-Maintenance And Operations Supervisor - 04/17/2020 11:04 EDT Initial Assessment II Sensory and Motor Deficits : Other: Atha Current Home Treatments and Equipment : Walker EKATERINA UNDERWOOD Care Management-Maintenance And Operations Supervisor - 04/17/2020 11:04 EDT Discharge Needs I Anticipated Discharge Date : 04/18/2020 EDT Anticipated Discharge To, CM : Home with family care, Home with home health Current Home Treatment/Equipment : Current Home Treatment/Equipment No qualifying data available. Post Acute/Home Treatments : None Documentation Status Complete : Yes EKATERINA UNDERWOOD, Care Management-Maintenance And Operations Supervisor - 04/17/2020 11:04 EDT Discharge Needs II Professional Skilled Services : Professional Skilled Services No qualifying data available. Services and Community Resources : Home Health Needs Assistance with Transportation : No Discharge Options Discussed with Patient : DME, Home Health EKATERINA UNDERWOOD Care Management-Maintenance And Operations Supervisor - 04/17/2020 11:04 EDT Narrative Note Narrative Note : Pt seen P/O for disposition, pt plans home with Home P.T. pt has a vince walker. Pt would like [place] [facility] for in home therapy. referral sent. pt likely to d/c home today once cleared by medical and P.T. EKATERINA UNDERWOOD Care Management-Maintenance And Operations Supervisor - 04/17/2020 11:04 EDT documented in this encounter Plan of Treatment Not on file documented as of this encounter Visit Diagnoses Not on filedocumented in this encounter
--- OUTSIDE RECORDS SUMMARY | 2025-10-18 09:00 | XMS_ITS | Encounter Summary ---
Author Organization [employer] ([place], [place], [place], [place], [place]) Address [address] [place] [address] Care Team Providers Care Neurology Hospitalist Name Role Phone Unavailable Primary Care Provider Unavailabl e Encounter Details Date Type Department Care Team (Late st Contact Info) Description 04/17/2020 Transcribed Document [facility] [place] [facility] [address] [place] [address] ProviderGabe MD [address] [place] [address] Social History Tobacco Use Types Packs/Day Years Used Date Smoking Tobacco: Never Assessed Sex and Gender Information Value Date Recorded Sex Assigned at Not on file Legal Sex Male 3:36 PM CDT Gender Identity Not on file Sexual Orientation Not on file documented as of this encounter Miscellaneous Notes * Cerner Conversion Note - Gabe Hill MD - 04/17/2020 4:57 PM CDT [place] [phone] MYRNAWAI ALONSO :1965 Visit Time:04/17/2020 Your Visit Summary Your Care Team Admitting Physician - FANY LEYVA MD-NANCY OCONNELL MD Attending Physician - FANY LYEVA MD-ORT Primary Care Physician - JOSE KAMINSKI (REF), -FAM Referring Physician - FANY LEYVA MD-ORT Your Diagnosis Unilateral primary osteoarthritis, right hip, Unilateral primary osteoarthritis, right hip These Are Your Goals be able to walk What to do next Instructions From Your Care Team In Home Physical Therapy arranged with [facility] [phone] Patient has all needed DME Discharge Diet: Discharge Diet: Resume usual diet as tolerated Follow-Up Appointments Follow Up with FANY LEYVA MD-ORT When 05/29/2020 01:00 PM EDT Comments Appointment has been made Where: [address] [place] [address]- Follow Up with Follow up with Ortho in 6 wks When Within 6 weeks Follow Up with Follow up with primary care provider When Within 1 to 2 weeks Medications What How Much When Instructions Next Dose docusate (Colace 100 mg oral capsule) 1 Capsule(s) Oral Two Times A Day Duration: 21 Day(s) Printed Prescription oxyCODONE (oxyCODONE 5 mg oral tablet) 1 Tablet(s) Oral Every 4 Hours as needed for Pain (Moderate 4-6) oxyCODONE (oxyCODONE 5 mg oral tablet) 2 Tablet(s) Oral Every 4 Hours as needed for Pain (Severe 7-10) aspirin (aspirin 81 mg oral delayed release tablet) 1 Tablet(s) Oral Two Times A Day amLODIPine (amLODIPine 10 mg oral tablet) 1 Tablet(s) Oral Every Day gabapentin (gabapentin 600 mg oral tablet) 1 Tablet(s) Oral Three Times A Day hydrochlorothiazide-triamterene (hydroCHLOROthiazide-triamterene 50 mg-75 mg oral tablet) 1 Tablet(s) Oral Every Day lisinopril (lisinopril 20 mg oral tablet) Oral Every Day PRAVAstatin (pravastatin 20 mg oral tablet) Oral Every Day traMADol (traMADol 50 mg oral tablet) 2 Tablet(s) Oral Every 6 Hours as needed for as needed for pain Take your medications faithfully. Do NOT skip [...] This Visit No Immunizations Found Education Materials What to expect after the Procedure: After the procedure, it is common to have: ??? Pain and swelling. ??? A small amount of blood or clear fluid coming from your incision for up to 7 days ??? It is normal to have a moderate amount of bleeding from the site of the drain that was pulled on the morning after surgery. You can hold pressure on the area for 3-5 minutes and cover with a bandage as needed. Diet: ??? Resume usual diet ??? No alcoholic beverages while taking pain medication ??? Drink 8-10 glasses of water a day to prevent constipation from pain medication ??? Increase fiber to help prevent constipation. Straining can cause increased pressure and pain in your incision area ??? Increase protein to promote healing Driving: ??? Do not drive until your health care provider approves. Ask your health care provider when it is safe to drive if you have an immobilizer on your knee. ??? Do not drive or operate heavy machinery while taking prescription pain medicine. ??? Do not drive for 24 hours if you received a sedative. Activity: ??? Do not lift anything that is heavier than 10 lb (4.5 kg) until your health care provider approves. ??? No strenuous activity ??? Avoid high-impact activities, including running, jumping rope, and jumping jacks. ??? Avoid sitting for a long time without moving. Get up and move around at least every few hours. ??? Keep legs elevated while seated and place surgery leg on 2-3 pillows, this will decrease swelling ??? Continue using walker until cleared by physical therapy Bathing: ??? Do not take baths, swim, or use a hot tub for one month after surgery. ??? May shower on the third day after surgery by covering incision with Glad Brand Press and Seal saran wrap. After showering, dry off completely BEFORE removing saran wrap. ??? Use Press and Seal saran wrap to shower for one month after surgery ??? You must be seated to shower until you are no longer using the walker Other: ??? Use ice therapy for 20-30 minutes at a time and leave off for 20-30 minutes at a time. Always keep a towel or cloth between the ice pack and your skin ??? Continue to use Incentive Spirometer 10 times an hour while awake for one month to help prevent pneumonia. ??? Wear compression stockings on for 6 weeks. ??? Take Aspirin 81mg twice a day for 45 days. Contact a health care provider if: ??? You have more redness, swelling, or pain around your incision. ??? You have more fluid or blood coming from your incision. ??? Your incision or drain site feels warm to the touch. ??? You have pus or a bad smell coming from your incision. ??? You have a fever. ??? Your incision breaks open after your health care provider removes your sutures, skin glue, or adhesive tape. ??? Your prosthesis feels loose. ??? You have knee pain that does not go away. DVT: Blood Clot Blood clots are a common risk after an orthopedic surgery Symptoms: ??? Swelling of your leg or arm, especially if one side is much worse. ??? Warmth and redness of your leg or arm, especially if one side is much worse. ??? Pain in your arm or leg. If the clot is in your leg, symptoms may be more noticeable or worse when you stand or walk. ??? A feeling of pins and needles, if the clot is in the arm. The symptoms of a DVT that has traveled to the lungs (pulmonary embolism, PE) usually start suddenly and include: ??? Shortness of breath while active or at rest. ??? Coughing or coughing up blood or blood-tinged mucus. ??? Chest pain that is often worse with deep breaths. ??? Rapid or irregular heartbeat. ??? Feeling light-headed or dizzy. ??? Fainting. ??? Feeling anxious. ??? Sweating. There may also be pain and swelling in a leg if that is where the blood clot started. How is this prevented? Exercise regularly. For at least 30 minutes every day, engage in: -Activity that involves moving your arms and legs. -Activity that encourages good blood flow through your body by increasing your heart rate. ??? Exercise your arms and legs every hour during long-distance travel (over 4 hours). ??? Drink plenty of water and avoid drinking alcohol while traveling. ??? Avoid sitting or lying in bed for long periods of time without moving your legs. ??? Maintain a weight that is appropriate for your height. Ask your health care provider what weight is healthy for you. ??? If you are a woman who is over 35 years of age, avoid unnecessary use of medicines that contain estrogen. These include control pills. ??? Do not smoke, especially if you take estrogen medicines. If you need help quitting, ask your health care provider. ??? Wear compression stockings (if told by your health care provider) to help prevent blood clots from forming. High Fiber/High Protein Diet High fiber foods: To prevent constipation Grains Whole-grain breads. Multigrain cereal. Oats and oatmeal. Brown rice. Barley. Bulgur wheat. Millet. Bran muffins. Popcorn. [place] wafer crackers. Vegetables Sweet potatoes. Spinach. Kale. Artichokes. Cabbage. Broccoli. Green peas. Carrots. Squash. Fruits Berries. Pears. Apples. Oranges. Avocados. Prunes and raisins. Dried figs. Meats and Other Protein Sources [place], kidney, dhillon, and soy beans. Split peas. Lentils. Nuts and seeds. Dairy Fiber-fortified yogurt. Beverages Fiber-fortified soy milk. Fiber-fortified orange juice. Other Fiber bars. High-protein foods: To promote healing High-protein foods contain 4 grams (4 g) or more of protein per serving. They include: ??? Beef, ground sirloin (cooked) ??? 3 oz have 24 g of protein. ??? Cheese (hard) ??? 1 oz has 7 g of protein. ??? Chicken breast, boneless and skinless (cooked) ??? 3 oz have 13.4 g of protein. ??? Cottage cheese ??? 1/2 cup has 13.4 g of protein. ??? Egg ??? 1 egg has 6 g of protein. ??? Fish, filet (cooked) ??? 1 oz has 6???7 g of protein. ??? Garbanzo beans (canned or cooked) ??? 1/2 cup has 6???7 g of protein. ??? Kidney beans (canned or cooked) ??? 1/2 cup has 6???7 g of protein. ??? [place] (cooked) ??? 3 oz has 24 g of protein. ??? Milk ??? 1 cup (8 oz) has 8 g of protein. ??? Nuts (peanuts, pistachios, almonds) ??? 1 oz has 6 g of protein. ??? Peanut butter ??? 1 oz has 7???8 g of protein. ??? Pork tenderloin (cooked) ??? 3 oz has 18.4 g of protein. ??? Pumpkin seeds ??? 1 oz has 8.5 g of protein. ??? Soybeans (roasted) ??? 1 oz has 8 g of protein. ??? Soybeans (cooked) ??? 1/2 cup has 11 g of protein. ??? Soy milk ??? 1 cup (8 oz) has 5???10 g of protein. ??? Soy or vegetable aditi ??? 1 aditi has 11 g of protein. ??? [place] seeds ??? 1 oz has 5.5 g of protein. ??? Tofu (firm) ??? 1/2 cup has 20 g of protein. ??? Tuna (canned in water) ??? 3 oz has 20 g of protein. ??? Yogurt ??? 6 oz has 8 g of protein. Fall Prevention ??? Use night lights. ??? Install grab bars by the toilet and in the tub and shower. Do not use towel bars as grab bars. ??? Use non-skid mats or decals on the floor of the tub or shower. ??? If you need to sit down while you are in the shower, use a plastic, non-slip stool. ??? Keep the floor dry. Immediately clean up any water that spills on the floor. ??? Remove soap buildup in the tub or shower on a regular basis. ??? Remove throw rugs and other tripping hazards from the floor. ??? Place frequently used items in nsil-qz-aygof places ??? Keep electrical cables out of the way. ??? Do not leave any items on the stairs. ??? Make sure that there are handrails on both sides of the stairs. Fix handrails that are broken or loose. Make sure that handrails are as long as the stairways. ??? Check any carpeting to make sure that it is firmly attached to the stairs. Fix any carpet that is loose or worn. ??? Avoid having throw rugs at the top or bottom of stairways, or secure the rugs with carpet tape to prevent them from moving. ??? Wear closed-toe shoes that fit well and support your feet. Wear shoes that have rubber soles or low heels. ??? Use mobility aids as needed, such as canes, walkers, scooters, and crutches. ??? Turn on lights if it is dark. Replace any light bulbs that burn out. ??? Set up furniture so that there are clear paths. Keep the furniture in the same spot. ??? Be aware of any and all pets. ??? Review your medicines with your healthcare provider. Some medicines can cause dizziness or changes in blood pressure, which increase your risk of falling. Hand Washing You should wash your hands whenever you think they are dirty. You should also wash your hands: ??? After: ??? Working or playing outside. ??? Touching an animal or its toys or leash. ??? Handling livestock. ??? Using the bathroom. ??? Using household medical billing and coding instructor or toxic chemicals. ??? Touching or taking out the garbage. ??? Touching anything dirty around your home. ??? Handling soiled clothes or rags. ??? Taking care of a sick child. This includes touching used tissues, toys, and clothes. ??? Sneezing, coughing, or blowing your nose. ??? Using public transportation. ??? Shaking hands. ??? Using a phone, including your mobile phone. ??? Touching money. ??? Before and after: ??? Preparing food. ??? Feeding a baby or young child. ??? Eating. ??? Visiting or taking care of someone who is sick. ??? Changing a diaper. ??? Changing a bandage (dressing) or taking care of an injury or wound. ??? Giving or taking medicine. If soap and [...] 4. Repeat the process for each step. ??? Always keep both feet within the width of the walker's legs or wheels. ??? When using your walker, you should not feel like you need to lean forward or to the side to keep your hands on the handgrips. ??? Make sure you are following any weight-bearing instructions that your health care provider has given you. ??? Be careful not to let the walker get too far ahead of you as you walk. ??? If your walker does not glide well [...] Step down with your stronger leg. Dr. Leyva???s ATHA ??? Adhere to all weight bearing restrictions. Use a scale daily to help familiarize what the weight bearing restriction feels like. (Example: 25lb weight bearing restriction on affected extremity). ??? Strictly use walker for 2 week to decrease the risk of post op femur fracture(Unless instructed to use for 6 weeks). ??? Elevate the affected knee and the entire lower extremity on 2 or 3 pillows at night for the first 6-8 weeks after surgery in order to help combat swelling. ??? May shower on the 3rd day after surgery. Use [employer] Press & Seal for showering. Incision area must remain completely dry for 14 days. ??? The current dressing may be removed on the 7th day after surgery and remain uncovered if it???s completely dry. ??? May progress from a walker, to crutches, to a cane, to no support at the discretion of the therapist after 2 weeks. Do not progress to the next level until you are walking without a limp at the previous level. ??? Take your blood thinning medication as directed. ??? Prescribed postoperative pain medications should be weaned as tolerated, beginning 72 hours after surgery. Discontinue the 12 hour medications first. Try to be off all narcotics by 14 days after surgery. ??? Bilateral SHIRAZ hose are to be worn [...] Keep items that you use often in qaga-lc-kovwm places. Lower the shelves around your home [...] the way. ??? Do not use floor indian or wax that makes floors slippery. If [...] Control and Prevention, STEADI: https://cdc.gov ??? National [place] on Aging: https://rk7jupx.cody.nih.gov Contact a doctor if: ??? You are [...] 08/02/2010 Document Revised: 05/21/2018 Document Reviewed: 05/21/2018 [employer] Interactive Patient Education ?? 2020 Unruly. Emergency Awareness and Preventative Care STROKE is [...] Assistance with quitting is available by contacting 9-780-IZPI-NOW. This is a free resource providing counseling, [...] This Visit (last charted value for your 04/17/2020 visit) Hematology 04/17/2020 9:53 AM Hct: 39.7 % -- Normal range between ( 40.1 and 51.0 ) Hgb: 13.7 Gram/dL -- Normal range between ( 13.7 and 17.5 ) 04/06/2020 1:52 PM WBC: 8.6 K/uL -- Normal range between ( 3.9 and 10.0 ) RBC: 4.32 Million/uL -- Normal range between ( 4.63 and 6.08 ) Platelet Count: 310 K/uL -- Normal range between ( 163 and 369 ) MCH: 32.9 pg -- Normal range between ( 25.6 and 32.2 ) MCHC: 33.9 Gram/dL -- Normal range between ( 32.3 and 36.5 ) MCV: 97.0 fL -- Normal range between ( 79.0 and 94.8 ) Slide Review: No Eos %: 2.9 % -- Normal range between ( 1.0 and 7.0 ) Beckham #: 0.67 K/uL -- Normal range between ( 0.24 and 0.82 ) Eos #: 0.25 K/uL -- Normal range between ( 0.04 and 0.54 ) Beckham %: 7.8 % -- Normal range between ( 4.7 and 12.5 ) Baso %: 0.7 % -- Normal range between ( 0.0 and 1.0 ) Baso #: 0.06 K/uL -- Normal range between ( 0.01 and 0.08 ) RDW: 12.8 % -- Normal range between ( 11.6 and 14.4 ) Neut %: 63.4 % -- Normal range between ( 34.0 and 71.0 ) Neut #: 5.46 K/uL -- Normal range between ( 1.56 and 6.13 ) Lymph %: 24.0 % -- Normal range between ( 19.3 and 53.0 ) Lymph #: 2.06 K/uL -- Normal range between ( 1.18 and 3.74 ) MPV: 10.8 fL -- Normal range between ( 9.4 and 12.4 ) IG#: 0 x10(3)/uL IG%: 1 % -- Normal range between ( 0 and 1 ) Urinalysis 04/06/2020 1:52 PM Ur RBC: 0-2 /HPF Urine Nitrite: Negative Urine Leukocyte Esterase: Negative Ur Epithelial Cells: 0-2 /HPF Urine Appearance: Clear Urine Glucose Dipstick: Negative Urine Blood Dipstick: Negative Urine Urobilinogen Dipstick: 1.0 EU/dL -- Normal range between ( 0.2 and 1.0 ) Urine Protein Dipstick: Negative Ur Bacteria: None Seen Urine Color: Yellow Ur WBC: 0-2 /HPF Urine Ketones Dipstick: Negative Urine pH Dipstick: 6.5 -- Normal range between ( 6.0 and 8.0 ) Urine Bilirubin Dipstick: Negative Urine Specific Amorita: 1.015 -- Normal range between ( 1.005 and 1.030 ) Urine Type.: U CleanCatch Microbiology 04/13/2020 5:38 PM Novel Coronavirus 2019: Negative Blood Bank 04/17/2020 6:40 AM ABO/Rh Repeat: A POS 04/17/2020 6:23 AM ABO/Rh: A POS Antibody Screen (Tube): Negative ABSC General Chemistry 04/06/2020 1:52 PM Creatinine Level: 1.18 mg/dL -- Normal range between ( 0.70 and 1.30 ) Sodium Level: 140 mmol/L -- Normal range between ( 136 and 146 ) Potassium Level: 4.0 mmol/L -- Normal range between ( 3.5 and 5.1 ) Chloride Level: 104 mmol/L -- Normal range between ( 102 and 112 ) Carbon Dioxide Level: 27 mmol/L -- Normal range between ( 21 and 32 ) Anion Gap: 13 -- Normal range between ( 9 and 20 ) Bilirubin Total: 0.5 mg/dL -- Normal range between ( 0.2 and 1.3 ) Hgb A1C: 5.90 % -- Normal range between ( 4.20 and 6.30 ) A/G Ratio: 1.0 -- Normal range between ( 1.1 and 2.5 ) ALT: 25 Units/Liter -- Normal range between ( 12 and 78 ) AST: 13 Units/Liter -- Normal range between ( 5 and 37 ) Globulin: 3.8 Gram/dL -- Normal range between ( 1.5 and 4.5 ) Alk Phos: 75 Units/Liter -- Normal range between ( 27 and 136 ) eAVG Glucose: 123 mg/dL Bun/Creatinine: 16.9 -- Normal range between ( 8.0 and 20.0 ) Calcium Level: 8.9 mg/dL -- Normal range between ( 8.5 and 10.1 ) eGFR : >60 mL/min/1.73m2 eGFR NonAfrican: >60 mL/min/1.73m2 Glucose Level: 110 mg/dL -- Normal range between ( 74 and 106 ) Blood Urea Nitrogen: 20 mg/dL -- Normal range between ( 7 and 22 ) Protein Total: 7.5 Gram/dL -- Normal range between ( 6.4 and 8.2 ) Albumin Level: 3.7 Gram/dL -- Normal range between ( 3.4 and 5.0 ) Coagulation 04/06/2020 1:52 PM INR: 1.0 -- Normal range between ( 0.9 and 1.1 ) PTT: 27.8 Second(s) -- Normal range between ( 24.2 and 31.8 ) PT: 10.1 Second(s) -- Normal range between ( 9.6 and 11.5 ) Protein & Immunoglobulin Studies 04/06/2020 1:52 PM Prealbumin: 28.4 mg/dL -- Normal range between ( 20.0 and 40.0 ) Patient Name:WAI MORENO I have received and understand this information and was given the opportunity to ask questions. Patient/Monogram Maker Name: Patient/Monogram Maker Signature: Relationship to Patient: Clinician/Hospital Monogram Maker Signature: Date: documented in this encounter Plan of Treatment Not on file documented as of this encounter Visit Diagnoses Not on filedocumented in this encounter
--- OUTSIDE RECORDS SUMMARY | 2025-10-18 09:00 | XMS_ITS | Encounter Summary ---
Author Organization [employer] ([place], [place], [place], [place], [place]) Address [address] [place] [address] Care Team Providers Care Art Coordinator Name Role Phone Unavailable Primary Care Provider Unavailabl e Encounter Details Date Type Department Care Team (Late st Contact Info) Description 04/17/2020 Transcribed Document [facility] [place] [facility] [address] [place] [address] ProviderGabe MD [address] [place] [address] Social History Tobacco Use Types Packs/Day Years Used Date Smoking Tobacco: Never Assessed Sex and Gender Information Value Date Recorded Sex Assigned at Not on file Legal Sex Male 3:36 PM CDT Gender Identity Not on file Sexual Orientation Not on file documented as of this encounter Miscellaneous Notes * Cerner Conversion Note - Gabe Hill MD - 04/17/2020 12:45 PM CDT Patient: WAI MORENO Age: 54 years Sex: Male : 1965 Associated Diagnoses: None Author: OLIVE BUNCH MD-INT Basic Information Source of history: Self, Medical record. Chief Complaint Right hip pain History of Present Illness This patient is a pleasant 54 yo WM with PMH of hyperlipidemia, hypertension, and obstructive sleep apnea who presents with right hip pain. The pain has been going on for 3 years but has gotten progressively worse. She describes it as a sharp pain. It is now to the point that it is affecting her ADLs. She has tried NSAIDs without relief of her pain. She has not fallen. She has used a cane as an assistive device. he was seen at Dr Leyva's office and evaluated and it was determined that she has severe DJD affecting the right hip. Pt underwent to a Right Total Hip Arthroplasty via Anterior Approach today. I saw and examined it him after the procedure. Patient denies any chest pain, shortness of breath or GI symptoms. Systolic blood pressure was slightly elevated around 150s. Review of Systems Constitutional: No fever, No chills, No sweats, No weakness. Eye: No double vision, No visual disturbances. Ear/Nose/Mouth/Throat: No sore throat. Respiratory: No shortness of breath, No cough, No sputum production. Cardiovascular: No chest pain, No palpitations, No bradycardia, No syncope. Gastrointestinal: No nausea, No vomiting, No abdominal pain. Immunologic: No recurrent fevers. Musculoskeletal: No back pain, No neck pain. Integumentary: No rash, No pruritus. Neurologic: Alert and oriented X4, No confusion, No headache. Psychiatric: No anxiety, No depression. Health Status Current medications: Medications (18) Active Scheduled: (7) acetaminophen 500 mg tab 1,000 mg 2 Tab, Oral, Q6HInt aspirin EC 81 mg tab 81 mg 1 Tab, Oral, BID docusate sodium 100 mg cap 100 mg 1 Cap, Oral, BID multiple vitamin (Thera) tab 1 Tab, Oral, Daily pantoprazole EC 40 mg tab 40 mg 1 Tab, Oral, Daily senna/docusate 8.6/50 mg tab 2 Tab, Oral, At Bedtime traMADol 50 mg tab 50 mg 1 Tab, Oral, Q6H While Awake Continuous: (2) NaCl 0.9% 1,000 mL 1,000 mL, IntraVENous, 100 mL/Hr NaCl 0.9% 1,000 mL 1,000 mL, IntraVENous, 50 mL/Hr PRN: (9) bisacodyl 10 mg supp 10 mg 1 Supp, Rectal, 1-Time diphenhydrAMINE 25 mg tab 25 mg 1 Tab, Oral, Q4H diphenhydrAMINE 25 mg tab 12.5 mg 0.5 Tab, Oral, At Bedtime metoclopramide 10 mg/2 mL inj 5 mg 1 mL, IV Push, Q4H naloxone 0.4 mg/1 mL inj 0.1 mg 0.25 mL, IV Push, Q5Min ondansetron 4 mg/2 mL inj 4 mg 2 mL, IV Push, Q8H oxyCODONE 5 mg tab 5 mg 1 Tab, Oral, Q4H oxyCODONE 5 mg tab 10 mg 2 Tab, Oral, Q4H senna 8.6 mg tab 8.6 mg 1 Tab, Oral, At Bedtime Histories Active Problems (9) Arthritis Back pain Bronchitis Chest pain History of obstructive sleep apnea Hyperlipidemia Hypertension Osteoarthritis Sleep apnea Surgical history Back surgery Ankle surgery Social history Patient denies smoking or alcohol use. Physical Examination VS/Measurements Vital Signs/Vital Measures 04/17/2020 12:14 EDT Oxygen Saturation 98 % Oxygen Therapy Mode Nasal cannula Oxygen Flow Rate 2 Liter/Min 04/17/2020 10:49 EDT Systolic Blood Pressure 153 mmHg HI Diastolic Blood Pressure 80 mmHg Mean Arterial Pressure (MAP)-BMDI 95 Temperature Source Oral Temperature Mode Fahrenheit Temperature, Fahrenheit 97.5 Deg F Clinical Temperature, C 36.4 Deg C Heart Rate Monitored 75 bpm Respiratory Rate 18 Breaths/Min Oxygen Saturation 98 % Oxygen Therapy Mode Nasal cannula Oxygen Flow Rate 2 Liter/Min 04/17/2020 10:45 EDT Systolic Blood Pressure 163 mmHg HI Diastolic Blood Pressure 69 mmHg 04/17/2020 10:30 EDT Systolic Blood Pressure 153 mmHg HI Diastolic Blood Pressure 69 mmHg Mean Arterial Pressure (MAP)-BMDI 96 Heart Rate Monitored 65 bpm Respiratory Rate 20 Breaths/Min Oxygen Saturation 99 % 04/17/2020 10:15 EDT Systolic Blood Pressure 152 mmHg HI Diastolic Blood Pressure 74 mmHg Temperature Source Temporal artery scanning Temperature Mode Fahrenheit Temperature, Fahrenheit 97.9 Deg F Clinical Temperature, C 36.6 Deg C Heart Rate Monitored 65 bpm Respiratory Rate 18 Breaths/Min Oxygen Saturation 100 % Oxygen Therapy Mode Nasal cannula Oxygen Flow Rate 2 Liter/Min 04/17/2020 10:10 EDT Systolic Blood Pressure 159 mmHg HI Diastolic Blood Pressure 72 mmHg Mean Arterial Pressure (MAP)-BMDI 104 Heart Rate Monitored 68 bpm Respiratory Rate 20 Breaths/Min Oxygen Saturation 100 % 04/17/2020 10:05 EDT Systolic Blood Pressure 139 mmHg Diastolic Blood Pressure 67 mmHg Mean Arterial Pressure (MAP)-BMDI 95 Heart Rate Monitored 68 bpm Respiratory Rate 18 Breaths/Min Oxygen Saturation 99 % Oxygen Therapy Mode Nasal cannula Oxygen Flow Rate 2 Liter/Min 04/17/2020 10:00 EDT Systolic Blood Pressure 147 mmHg HI Diastolic Blood Pressure 66 mmHg Mean Arterial Pressure (MAP)-BMDI 86 Heart Rate Monitored 69 bpm Respiratory Rate 17 Breaths/Min Oxygen Saturation 99 % 04/17/2020 9:55 EDT Systolic Blood Pressure 141 mmHg HI Diastolic Blood Pressure 63 mmHg Mean Arterial Pressure (MAP)-BMDI 91 Heart Rate Monitored 75 bpm Respiratory Rate 18 Breaths/Min Oxygen Saturation 99 % Oxygen Therapy Mode Nasal cannula Oxygen Flow Rate 2 Liter/Min 04/17/2020 9:46 EDT Systolic Blood Pressure 145 mmHg HI Diastolic Blood Pressure 62 mmHg Mean Arterial Pressure (MAP)-BMDI 102 Temperature Source Temporal artery scanning Temperature Mode Fahrenheit Temperature, Fahrenheit 98.3 Deg F Clinical Temperature, C 36.8 Deg C Heart Rate Monitored 78 bpm Respiratory Rate 16 Breaths/Min Oxygen Saturation 94 % Oxygen Therapy Mode Nasal cannula Oxygen Flow Rate 3 Liter/Min 04/17/2020 9:00 EDT Heart Rate, Apical Not Done: Not Appropriate at this Time (Not Done) 04/17/2020 6:02 EDT Blood Pressure Location Arm, left upper Blood Pressure Source Non-Invasive BP Device Blood Pressure Position Side, Left Systolic Blood Pressure 153 mmHg HI Diastolic Blood Pressure 76 mmHg Temperature Source Oral Temperature Mode Fahrenheit Temperature, Fahrenheit 97.8 Deg F Clinical Temperature, C 36.6 Deg C Pulse Method Pulse Oximetry Pulse Source Radial, Right Pulse Rhythm Regular Peripheral Pulse Rate 75 bpm Respiratory Rate 16 Breaths/Min Oxygen Saturation 94 % Oxygen Therapy Mode Room air Oxygen Therapy Mode Room air General: Alert and oriented, No acute distress, morbidly obese. Eye: Normal conjunctiva, Vision unchanged. HENT: Normocephalic. Neck: Supple. Respiratory: Lungs are clear to auscultation, Respirations are non-labored, Breath sounds are equal, Symmetrical chest wall expansion. Cardiovascular: Normal rate, Regular rhythm, No murmur, No edema. Gastrointestinal: Soft, Non-tender, Non-distended, Normal bowel sounds. Musculoskeletal: No deformity. Integumentary: Warm, No rash. Neurologic: Alert, Oriented, No focal deficits. Cognition and Speech: Oriented, Speech clear and coherent. Psychiatric: Cooperative, Appropriate mood & affect. Review / Management Results review: Labs (Last four charted values) WBC 8.6 (APR 06) HB 13.7 (APR 17) 14.2 (MAR 18) HCT L 39.7 (APR 17) 41.9 (MAR 18) Plt 310 (APR 06) Na 140 (MAR 18) K 4.0 (APR 06) Cl 104 (APR 06) CO2 27 (APR 06) BUN 20 (APR 06) Cr 1.18 (APR 06) Glu R H 110 (APR 06) Ca 8.9 (APR 06) PT 10.1 (APR 06) INR 1.0 (APR 06) PTT 27.8 (APR 06) AST 13 (APR 06) ALT 25 (APR 06) ALK P 75 (APR 06) T Bili 0.5 (APR 06) PTN 7.5 (APR 06) ALB 3.7 (APR 06) . No Radiology Results Found Impression and Plan Right hip pain status post Right ATHA pain Control DVT prophylaxis per orthopedics PT/OT consult Uncontrolled hypertension Resume Norvasc, hydrochlorothiazide/triamterene and lisinopril Hydralazine when necessary Monitor Hyperlipidemia Continue statin Obstructive sleep apnea Continue CPAP DVT prophylaxis, aspirin 81 mg twice a day per orthopedic recommendation He is full code Chart reviewed Labs reviewed Thank you for this consultation Time spent is 44 minutes. documented in this encounter Plan of Treatment Not on file documented as of this encounter Visit Diagnoses Not on filedocumented in this encounter
--- OUTSIDE RECORDS SUMMARY | 2025-10-18 09:00 | XMS_ITS | Encounter Summary ---
Author Organization [employer] ([place], [place], [place], [place], [place]) Address [address] [place] [address] Care Team Providers Care Format Proofreader Name Role Phone Unavailable Primary Care Provider Unavailabl e Encounter Details Date Type Department Care Team (Late st Contact Info) Description 04/17/2020 Transcribed Document [facility] Family Medicine [address] [place] [address] ProviderGabe MD [address] [place] [address] Social History Tobacco Use Types [...] 04/17/2020 8:10 AM CDT [facility] Main OR IntraOp Summary Primary Physician: FANY FLOYD MD-ORT Finalized Date/Time: 04/17/20 15:11:12 Pt. Name: WAI MORENO /Sex: 1965 Male Med Rec #: [id number] Physician: FANY FLOYD MD-ORT Financial #: [id number] Pt. Type: O Room/Bed: [facility]/ Admit/Disch: 04/17/20 04:56:00 - Institution: [facility] IntraOp Case Attendance Entry 1 Entry 2 Entry 3 Case Attendee FANY FLOYD SKEENS, STEPHEN J, Ismael Ward RN MD-MURALI Role Performed Surgeon/Proceduralist, WAITER/WAITRESS TOURIST CLASS/Nurse Clay Shop Supervisor Collection Technician, First First Time In 04/17/20 07:36:00 04/17/20 07:36:00 04/17/20 07:36:00 Time Out 04/17/20 09:45:00 04/17/20 09:45:00 04/17/20 09:45:00 Procedure Hip Total Anterior Hip Total Anterior Hip Total Anterior Approach Approach Approach Other Attendee Superficial Wound Closed By: Last Modified By: Ismael Bello, Ismael Ortega, Ismael Ortega, KOKI 04/17/20 09:49:39 04/17/20 09:49:39 04/17/20 09:49:39 Entry 4 Entry 5 Entry 6 Case Attendee JAMI LAGUERRE, JOEL Johnson, Ha, ST René, Lucian, Marine Biologist Role Performed International Logistics Manager, First Scrub, First Collection Technician, Third Time In 04/17/20 07:36:00 04/17/20 07:36:00 04/17/20 07:36:00 Time Out 04/17/20 09:01:00 04/17/20 09:18:00 04/17/20 09:45:00 Procedure Hip Total Anterior Hip Total Anterior Hip Total Anterior Approach Approach Approach Other Attendee Superficial Wound Closed By: Last Modified By: Ismael Bello, Ismael Ortega, Ismael Ortega, KOKI 04/17/20 09:49:39 04/17/20 09:49:39 04/17/20 09:49:39 Entry 7 Entry 8 Entry 9 Case Attendee ISA DURÁN Leslie, Scrub TODD LEDBETTER, RT Tech Role Performed Scrub, First Assistive Personnel Sash Finisher Time In 04/17/20 07:36:00 04/17/20 07:36:00 04/17/20 07:36:00 Time Out 04/17/20 07:55:00 04/17/20 08:04:00 04/17/20 09:45:00 Procedure Hip Total Anterior Hip Total Anterior Hip Total Anterior Approach Approach Approach Other Attendee Superficial Wound Closed By: Last Modified By: Ismael Bello, Ismael Ortega, Ismael Ortega, KOKI 04/17/20 09:49:39 04/17/20 09:49:39 04/17/20 09:49:39 Entry 10 Entry 11 Entry 12 Case Attendee OTHER, ATTENDEE OTHER, ATTENDEE #1 HERVE AVILA, JOSEPHINE Role Performed Vendor Cell Saver Car Driver Physician registered nurse first assistant Time In 04/17/20 07:36:00 04/17/20 07:36:00 04/17/20 07:36:00 Time Out 04/17/20 09:45:00 04/17/20 09:45:00 04/17/20 09:45:00 Procedure Hip Total Anterior Hip Total Anterior Hip Total Anterior Approach Approach Approach Other Attendee SUN CHEN Superficial Wound Closed By: Last Modified By: Ismael Bello, Ismael Ortega RN Horton, Jamie, RN 04/17/20 09:49:39 04/17/20 09:49:39 04/17/20 09:49:39 Entry 13 Case Attendee LARRY PICKETT RN Role Performed Collection Technician, Second Time In 04/17/20 07:36:00 Time Out 04/17/20 09:37:00 Procedure Hip Total Anterior Approach Other Attendee KOKI WOLF Superficial Wound Closed By: Last Modified By: Ismael Bello RN 04/17/20 09:49:39 [facility] IntraOp Case Attendance Audit 04/17/20 09:49:39 Pickle Cutter: [id number] Modifier: [id number] <+> Time Out 1 <*> Procedure Hip Total Anterior Approach 2 <+> Time Out 2 <*> Procedure Hip Total Anterior Approach 3 <+> Time Out 3 <*> Procedure Hip Total Anterior Approach 4 <*> Procedure Hip Total Anterior Approach 5 <*> Procedure Hip Total Anterior Approach 6 <+> Time Out 6 <*> Procedure Hip Total Anterior Approach 7 <*> Procedure Hip Total Anterior Approach 8 <*> Procedure Hip Total Anterior Approach 9 <+> Time Out 9 <*> Procedure Hip Total Anterior Approach 10 <+> Time Out 10 <*> Procedure Hip Total Anterior Approach 11 <+> Time Out 11 <*> Procedure Hip Total Anterior Approach 12 <+> Time Out 12 <*> Procedure Hip Total Anterior Approach 13 <*> Procedure Hip Total Anterior Approach 04/17/20 09:36:13 Pickle Cutter: [id number] Modifier: [id number] <*> Procedure Hip Total Anterior Approach 2 <*> Procedure Hip Total Anterior Approach 3 <*> Procedure Hip Total Anterior Approach 4 <*> Procedure Hip Total Anterior Approach 5 <*> Procedure Hip Total Anterior Approach 6 <*> Procedure Hip Total Anterior Approach 7 <*> Procedure Hip Total Anterior Approach 8 <*> Procedure Hip Total Anterior Approach 9 <*> Procedure Hip Total Anterior Approach 10 <*> Procedure Hip Total Anterior Approach 11 <*> Procedure Hip Total Anterior Approach 12 <*> Procedure Hip Total Anterior Approach 13 <+> Time In 13 <+> Time Out 13 <*> Procedure Hip Total Anterior Approach 04/17/20 09:31:29 Pickle Cutter: [id number] Modifier: [id number] <+> 13 Case Attendee <+> 13 Role Performed <+> 13 Procedure <+> 13 Other Attendee 04/17/20 09:17:18 Pickle Cutter: [id number] Modifier: [id number] <+> Time Out 4 <*> Procedure Hip Total Anterior Approach 5 <+> Time Out 5 <*> Procedure Hip Total Anterior Approach 04/17/20 08:33:31 Pickle Cutter: [id number] Modifier: [id number] <*> Procedure Hip Total Anterior Approach 2 <*> Procedure Hip Total Anterior Approach 3 <*> Procedure Hip Total Anterior Approach 4 <*> Procedure Hip Total Anterior Approach 5 <*> Procedure Hip Total Anterior Approach 6 <*> Procedure Hip Total Anterior Approach 7 <*> Procedure Hip Total Anterior Approach 8 <*> Procedure Hip Total Anterior Approach 9 <*> Procedure Hip Total Anterior Approach 10 <*> Procedure Hip Total Anterior Approach 11 <*> Procedure Hip Total Anterior Approach 12 <+> Time In 12 <*> Procedure Hip Total Anterior Approach 04/17/20 08:17:36 Pickle Cutter: [id number] Modifier: [id number] <*> Procedure Hip Total Anterior Approach 2 <*> Procedure Hip Total Anterior Approach 3 <*> Procedure Hip Total Anterior Approach 4 <*> Procedure Hip Total Anterior Approach 5 <*> Procedure Hip Total Anterior Approach 6 <*> Procedure Hip Total Anterior Approach 7 <*> Procedure Hip Total Anterior Approach 8 <*> Procedure Hip Total Anterior Approach 9 <+> Time In 9 <*> Procedure Hip Total Anterior Approach 10 <+> Time In 10 <*> Procedure Hip Total Anterior Approach 11 <+> Time In 11 <*> Procedure Hip Total Anterior Approach <+> 12 Case Attendee <+> 12 Role Performed <+> 12 Procedure 04/17/20 08:13:45 Pickle Cutter: [id number] Modifier: [id number] <+> Time In 1 <*> Procedure Hip Total Anterior Approach 2 <+> Time In 2 <*> Procedure Hip Total Anterior Approach 3 <+> Time In 3 <*> Procedure Hip Total Anterior Approach 4 <+> Time In 4 <*> Procedure Hip Total Anterior Approach 5 <+> Time In 5 <*> Procedure Hip Total Anterior Approach 6 <+> Time In 6 <*> Procedure Hip Total Anterior Approach 7 <+> Time In 7 <+> Time Out 7 <*> Procedure Hip Total Anterior Approach 8 <+> Time In 8 <+> Time Out 8 <*> Procedure Hip Total Anterior Approach <+> 9 Case Attendee <+> 9 Role Performed <+> 9 Procedure <+> 10 Case Attendee <+> 10 Role Performed <+> 10 Procedure <+> 10 Other Attendee <+> 11 Case Attendee <+> 11 Role Performed <+> 11 Procedure <+> 11 Other Attendee [facility] IntraOp Case Times Entry 1 Patient In Room Time 04/17/20 07:36:00 Out Room Time 04/17/20 09:45:00 Anesthesia Start Time 04/17/20 07:36:00 Stop Time 04/17/20 09:45:00 Anesthesia Ready 04/17/20 07:36:00 Surgery / Procedure Times Start Time 04/17/20 08:10:00 Stop Time 04/17/20 09:39:00 Last Modified By: Ismael Bello RN 04/17/20 09:49:37 [facility] IntraOp Case Times Audit 04/17/20 09:49:37 Pickle Cutter: [id number] Modifier: [id number] <+> 1 Out Room Time <+> 1 Stop Time 04/17/20 09:38:39 Pickle Cutter: [id number] Modifier: [id number] <+> 1 Stop Time 04/17/20 08:14:04 Pickle Cutter: [id number] Modifier: [id number] <+> 1 Start Time [facility] IntraOp Cautery Entry 1 ESU Identification Cautery Type Monopolar ESU ID Number [id number] ID Type Hospital Number Cautery Settings Cut Setting 70 Coag Setting 70 ESU Grounding Pad Ground Pad Type Adult Grounding Pad Site Left Lower Abdomen Grounding Pad Ismael Bello, KOKI Applied By Grounding Pad Site Intact Skin Condition Before Cautery Grounding Pad Site Unchanged Skin Condition After Cautery Last Modified By: Ismael Bello RN 04/17/20 08:17:01 [facility] IntraOp Communication Entry 1 Communication To Other Comment ATTEMPTED CALL; NO ANSWER Communication By FRANCISCO FLOYD CRNA Last Modified By: Ismael Bello RN 04/17/20 08:17:19 [facility] IntraOp Counts Verification Entry 1 Entry 2 Procedure Hip Total Anterior Hip Total Anterior Approach Approach Count Info Count Type Sponge, Sharps Sponge, Sharps Counts Verification Baseline/pre-procedure Before wound closure Sequence Count Results Not Applicable Correct, surgeon notified If Incorrect or Waived complete the Counts Action Taken form: If Intentional Retention, complete the Intential Retention form: Counts Performed By Count Performed By ISA DURÁN Landon, Scrub (Scrub) Tech Count Performed By Ismael Bello RN Horton, Jamie, RN (RN) Last Modified By: Ismael Bello RN Horton, Jamie, RN 04/17/20 08:16:11 04/17/20 09:16:59 [facility] IntraOp Counts Verification Audit 04/17/20 09:16:59 Pickle Cutter: [id number] Modifier: [id number] <+> 2 Procedure <+> 2 Count Type <+> 2 Counts Verification Sequence <+> 2 Count Results <+> 2 Count Performed By (Scrub) <+> 2 Count Performed By (RN) [facility] IntraOp Counts Final Entry 1 Procedure Hip Total Anterior Approach Final Count Info Count Type Sponge, Sharps Counts Verification Skin Closure/end of Sequence procedure Count Results Correct, surgeon notified Counts Performed By Count Performed By Lucian Merritt Scrub (Scrub) Tech Count Performed By LARRY PICKETT RN (RN) Last Modified By: Ismael Bello RN 04/17/20 09:31:49 [facility] IntraOp Cultures and Spec Summary Entry 1 Cultrures and Specimens Specimen Ordered: Yes Test(s) Gross Analysis/Path-Lab Requested/Final Disposition Last Modified By: Ismael Bello RN 04/17/20 08:17:43 [facility] IntraOp Delays Entry 1 Delay Reason Surgeon late - no reason Duration 6 Minute(s) Last Modified By: Ismael Bello RN 04/17/20 08:17:58 [facility] IntraOp Departure from OR Entry 1 Integumentary Assessment Integumentary WDL Assessment WDL Transfer/Handoff Transfer to PACU Phase I Handoff Method Bedside/Face to face Post-op Transport Bed (including Via specialty) Patient Transport EVERETT FRANCISCO J, Accompanied by Ace COE Jamie, RN Last Modified By: Ismael Bello RN 04/17/20 08:42:59 [facility] IntraOp Drains and Tubes Entry 1 Device Type Hemovac Size MED. Drain/Tube Activity Inserted Drain/Tube Suction Not applicable Device Location RIGHT HIP Method of Drainage Compression Last Modified By: Ismael Bello RN 04/17/20 08:43:09 [facility] IntraOp Dressing and Packing Entry 1 Type Dressing Location RIGHT HIP Wound Dressing Item Occlusive dressing, Skin Closure Glue Applied By HERVE AVILA PAC Other Comments MEPILEX; DERMABOND Last Modified By: Ismael Bello RN 04/17/20 08:46:22 [facility] IntraOp Fire Risk Assessment Entry 1 Fire Info Surgical Site or 0- No Incision Above the Xyphoid Open O2 Source 0- No (Mask or Cannula) Available Ignition 1- Yes (ESU, Laser, Light Source) Fire Risk 1 Assessment Score Fire Score Fire Risk Yes Assessment Complete Fire Risk Ismael Bello RN Assessment Verified By Fire Risk 04/17/20 07:36:00 Assessment Verified Date/Time Fire Risk Standard Fire Yes Safety Precautions Followed Last Modified By: Ismael Bello RN 04/17/20 09:03:00 [facility] IntraOp Fire Risk Assessment Audit 04/17/20 09:03:00 Pickle Cutter: [id number] Modifier: [id number] <+> 1 Fire Risk Assessment Verified Date/Time [facility] IntraOp General Case District Manager Major Accounts Sales 1 Case Information OR OR 05 S[facility] Case Level 1 Room Verified Yes Wound Class I - Clean Specialty SN Orthopedic Anesthesia Type General ASA Class 3 Diagnosis 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 Last Modified By: Ismael Bello RN 04/17/20 08:46:57 [facility] IntraOp Implant Log Entry 1 Entry 2 Entry 3 Type Implant (Synthetic) Implant (Synthetic) Implant (Synthetic) Implant Log Implant Type Hardware Hardware Hardware Tissue Implant Type Implant SHELL ACETABULAR 56MM LINER CUP HEAD FEM CER [id number] Description Implant Quantity 1 1 1 Implant Site RIGHT HIP RIGHT HIP RIGHT HIP Implant Identification Model Number Implant Identification Serial Number Implant [id number] Identification Lot Number Implant Dj Ortho Dj Ortho Dj Ortho Identification Pier Hand Name: Implant [id number] Identification Catalog Number Implant Size Implant Has an Yes Yes Yes Expiration Date Implant Expiration 09/18/24 11/19/24 07/19/24 Date Wasted Radioactive Material Time Implanted Tissue Implant Continue for Tissue Implant Documentation Tissue Identification Number Graft Prep Per Pier Hand Instructions: Tissue Preparation Method: Reconstitution Solution: Reconstitution Solution Lot Number Reconstitution Solution Expiration Date: Thawing Solution Thawing Solution Lot Number Thawing Solution Expiration Date Preparation Materials, Other Preparation Materials, Other Lot Number Preparation Materials, Other Expiration Date Tissue Prepared/Processed By Pier Hand Paperwork Completed Implant Type Comment Last Modified By: Ismael Bello RN Horton, Jamie, RN Horton, Jamie, RN 04/17/20 08:53:37 04/17/20 08:54:27 04/17/20 09:18:08 Entry 4 Type Implant (Synthetic) Implant Log Implant Type Hardware Tissue Implant Type Implant [id number] (SIZE 13 Identification STANDARD OFFSET Description COLLARED) Implant Quantity 1 Implant Site RIGHT HIP Implant Identification Model Number Implant Identification Serial Number Implant [id number] Identification Lot Number Implant Identification Pier Hand Name: Implant Identification Catalog Number Implant Size Implant Has an Yes Expiration Date Implant Expiration 04/18/24 Date Wasted Radioactive Material Time Implanted Tissue Implant Continue for Tissue Implant Documentation Tissue Identification Number Graft Prep Per Pier Hand Instructions: Tissue Preparation Method: Reconstitution Solution: Reconstitution Solution Lot Number Reconstitution Solution Expiration Date: Thawing Solution Thawing Solution Lot Number Thawing Solution Expiration Date Preparation Materials, Other Preparation Materials, Other Lot Number Preparation Materials, Other Expiration Date Tissue Prepared/Processed By Pier Hand Paperwork Completed Implant Type Comment Last Modified By: Ismael Bello RN 04/17/20 09:19:56 [facility] IntraOp Implant Log Audit 04/17/20 09:19:56 Pickle Cutter: [id number] Modifier: [id number] <+> 4 Implant Identification Description <+> 4 Implant Identification Lot Number <+> 4 Implant Expiration Date <+> 4 Implant Site <+> 4 Implant Quantity <+> 4 Implant Type <+> 4 Implant Has an Expiration Date <+> 4 Type 04/17/20 09:18:08 Pickle Cutter: [id number] Modifier: [id number] <+> 3 Implant Identification Description <+> 3 Implant Identification Lot Number <+> 3 Implant Identification Pier Hand Name: <+> 3 Implant Expiration Date <+> 3 Implant Site <+> 3 Implant Quantity <+> 3 Implant Identification Catalog Number <+> 3 Implant Type <+> 3 Implant Has an Expiration Date <+> 3 Type 04/17/20 08:54:27 Pickle Cutter: [id number] Modifier: [id number] <+> 2 Implant Identification Description <+> 2 Implant Identification Lot Number <+> 2 Implant Identification Pier Hand Name: <+> 2 Implant Expiration Date <+> 2 Implant Site <+> 2 Implant Quantity <+> 2 Implant Identification Catalog Number <+> 2 Implant Type <+> 2 Implant Has an Expiration Date <+> 2 Type [facility] IntraOp Intraoperative Assessment Entry 1 Handoff Reported to Ismael Bello RN Handoff Method Other Valid History / Yes Physical in Chart Preoperative Yes Checklist Reviewed/Evaluated Allergies Reviewed Yes Patient is Latex No Sensitive Isolation Not applicable Precautions Noted Level of WDL Consciousness (WDL = Alert, Oriented to Person, Place, and Time) Skin Assessment Yes Verified Present Upon IVs Arrival to OR Last Modified By: Ismael Bello RN 04/17/20 08:47:18 [facility] IntraOp Intraoperative Equipment Entry 1 Type Equipment Equipment Equipment Maru Suction System ID Number [id number] Setting HIGH Intraop Monitoring Electrocardiogram Three lead placement (ECG) Electrode Placement Antiembolic Devices Antiembolic Devices Sequential compression device, knee high Antiembolic Device Left Location Antiembolic Device 5786 ID Number Scopes Photo/Video Documentation Photo No Video No Last Modified By: Ismael Bello RN 04/17/20 08:47:44 [facility] IntraOp Medication Admin Entry 1 Entry 2 Entry 3 Medication/Irrigant TRANEXAMIC ACID heparin 1000units/ml vancomycin 1Gm vial - 1000MG/10 ML 10ml - [id number] Combo Med List Time Administered Route of TOPICAL; MIXED W/ 25ML FOR CELL SAVER TOPICAL Administration NACL Dose Dose 1000 20927 1 Unit of Measure mg tsp gram Volume 10ML Administered By HERVE AVILA, PAC OTHER, ATTENDEE FANY FLOYD MD-ORT Procedure Irrigation Irrigant Volume In Irrigant Volume Out Last Modified By: Ismael Bello RN Horton, Jamie, RN Horton, Jamie, RN 04/17/20 08:49:21 04/17/20 08:49:21 04/17/20 08:49:21 Entry 4 Medication/Irrigant ANESTHETIC COCKTAIL-EVERETT Combo Med List Time Administered Route of INJECTION Administration Dose Dose 50 Unit of Measure ml Volume Administered By FANY FLOYD MD-ORT Procedure Irrigation Irrigant Volume In Irrigant Volume Out Last Modified By: Ismael Bello RN 04/17/20 08:49:21 [facility] IntraOp Patient Positioning Entry 1 Procedure Hip Total Anterior Approach Body Position Supine Left Arm Position Secured on padded arm board Right Arm Position Secured on padded arm board Left Leg Position Traction Right Leg Position Traction Feet Uncrossed Yes Pressure Points Yes Checked Positioning Devices Table, Fracture, Pillows, Arm Board Device Position SECURE OPERATIVE SIDE ARM WITH JOSE E YAYO ACROSS CHEST-PAD WITH EGG CRATE OR PILLOW; NON-OP ARM ON ARM BOARD; WRAP BOTH FEET WITH COBAN; USE FOAM FOOT PADDING; WRAP OP SIDE FOOT WITH COBAN AFTER PUTTING IN BOOT Positioned By Ismael Bello, KOKI, JAMI LAGUERRE CSA, FRANCISCO FLOYD, SARAVANAN, Driss, Marycarmen, Marine Biologist, LEEANNA, ISA P, Elizabeth, Ha, , René, Lucian, Marine Biologist Position Verified Positioning Yes Verified by Anesthesia Positioning Yes Verified by Surgeon Last Modified By: Ismael Bello RN 04/17/20 08:50:27 [facility] IntraOp Sign In Entry 1 Patient, Site, Yes Procedure Identified Surgical Consent Yes Confirmed Relevant Surgical Yes Documents Available Surgical Site Yes Marked by person performing procedure Anesthesia Machine Yes Check Completed Medication Checks Yes Completed Allergies Yes Airway Difficult No Airway/Aspiration Risk Difficult Yes Airway/Aspiration Intervention Equipment Available Blood Loss Risk Yes Blood Loss Yes Intervention Equipment Prepared and Ready Blood Identifiers Yes Verified Per Policy Hypothermia Risk Yes Warming Measures Yes Taken Last Modified By: Ismael Bello RN 04/17/20 08:50:39 [facility] Intra Op Sign Out Entry 1 RN Confirmation Surgical Yes Procedure(s) Identified Instrument, Sponge Yes and Sharps Counts Correct/Documented Equipment Problems Yes Documented Specimen Labeled Yes Correctly Urinary Catheter N/A Documented in IView Peña Patient Yes Recovery Concerns Reviewed with Anesthesia Provider, Surgeon and RN Peña Patient Yes Management Concerns Reviewed with Anesthesia Provider, Surgeon and RN Safety Checklist Yes Elements Complete? RN Sign Out Ismael Bello RN Signature RN Sign Out 04/17/20 09:45:00 Signature Date/Time Plan of Care Outcome - Fire Risk OUTCOME STATEMENT: Goal met Patient is free from injury related to surgical fire Plan of Care Outcome - Pt Positioning OUTCOME STATEMENT: Goal met Absence of signs and symptoms of positioning injury. Plan of Care Outcome - Skin Prep OUTCOME STATEMENT: Goal met Intraoperative care is consistent with measures to prevent infection Plan of Care Outcome - Xray/Images OUTCOME STATEMENT: Goal met Absence of observable signs or symptoms of radiation injury Plan of Care Outcome - Counts OUTCOME STATEMENT: Goal met Absence of signs and symptoms of injury related to extraneous objects Last Modified By: Ismael Bello RN 04/17/20 09:44:27 [facility] Intra Op Sign Out Audit 04/17/20 09:44:27 Pickle Cutter: [id number] Modifier: [id number] <+> 1 RN Sign Out Signature Date/Time [facility] IntraOp Skin Prep Entry 1 Procedure Hip Total Anterior Approach Prescribed Yes Pre-Surgical Prep Completed Prep Area RIGHT HIP; WIPE WITH ALCOHOL FIRST, THEN DURAPREP X 2 Intraop Prep Integumentary WDL Assessment WDL Prep Agents DuraPrep, Alcohol Prep by Ismael Bello RN Hair Removal Last Modified By: Ismael Bello RN 04/17/20 08:51:25 [facility] IntraOp Surgical Procedures Entry 1 Procedure Hip Total Anterior Approach Additional RIGHT DIRECT ANTERIOR Procedure TOTAL HIP REPLACEMENT Description Primary Procedure Yes Primary Surgeon FANY FLOYD MD-ORT Start 04/17/20 08:10:00 Stop 04/17/20 09:39:00 Anesthesia Type General Specialty SN Orthopedic Wound Class I - Clean Last Modified By: Ismael Bello RN 04/17/20 09:44:29 [facility] IntraOp Surgical Procedures Audit 04/17/20 09:44:29 Pickle Cutter: [id number] Modifier: [id number] <+> 1 Stop [facility] IntraOp Temp Regulation Devices Entry 1 Temp Regulation Temperature Forced Air Warming Regulation Device device Temperature 4764 Regulation Device Serial/Unit Number Temperature Upper body Regulation Site Temperature FRANCISCO FLOYD, WAITER/WAITRESS TOURIST CLASS Regulation Device Applied by Last Modified By: Ismael Bello RN 04/17/20 08:51:51 [facility] IntraOp Time Out Entry 1 Procedure to be Hip Total Anterior Performed Approach Time Out Time Out Pause Time 04/17/20 08:06:00 All activity Yes suspended (unless life threatening emergency) Team Verbally Correct patient Confirms Information identity, Correct side and site are marked, Consent form is present and accurate, Agreement on the procedure to be done, Correct patient position, Relevant images/results properly labeled/appropriately displayed, Confirm antibiotics have been administered, Confirm the skin prep has dried, Confirm prosthesis/implant/devic e is present, Performed in location of procedure after prepped/draped Antibiotic Yes Prophylaxis Administered Or In Progress Within the Last 60 Minutes Beta Mike N/A Administered Venous Yes Thromboembolism Prophylaxis Required Anticipated Critical Events Surgeon None expected Anesthesia Provider Patient specific concerns Nursing Assures Sterility of instruments, Implant Availability Essential Imaging Yes Labeled and Displayed Last Modified By: Ismael Bello RN 04/17/20 08:15:18 [facility] IntraOp X-Ray and Images Entry 1 X-Ray/Imaging Type Fluoroscopy Fluoroscopy Type C-Arm Site RIGHT HIP Cloth Doubling Machine Operator Name TODD LEDBETTER, RT Protective Devices Yes Used Last Modified By: Ismael Bello RN 04/17/20 08:52:14 Case Comments <None> Finalized By: Ismael Bello RN Document Signatures Signed By: Ismael Bello RN 04/17/20 09:49 Ismael Bello RN 04/17/20 15:11 Unfinalized History Date/Time Username Reason for Unfinalizing Freetext Reason for Unfinalizing 04/17/20 15:10 [id number] Modify Pick List documented in this encounter Plan of Treatment Not on file documented as of this encounter Visit Diagnoses Not on filedocumented in this encounter
--- OUTSIDE RECORDS SUMMARY | 2025-10-18 09:00 | XMS_ITS | Encounter Summary ---
Author Organization [employer] ([place], [place], [place], [place], [place]) Address [address] [place] [address] Care Team Providers Care Livestock Judging Coach Name Role Phone Unavailable Primary Care Provider Unavailabl e Encounter Details Date Type Department Care Team (Late st Contact Info) Description 04/17/2020 Transcribed Document [facility] [place] [address] [place] [address] ProviderGabe MD [address] [place], [place] [id number] Social History Tobacco Use Types Packs/Day Years Used Date Smoking Tobacco: Never Assessed Sex and Gender Information Value Date Recorded Sex Assigned at Not on file Legal Sex Male 3:36 PM CDT Gender Identity Not on file Sexual Orientation Not on file documented as of this encounter Miscellaneous Notes * Cerner Conversion Note - Gabe Hill MD - 04/17/2020 6:02 AM CDT Pre Procedure Adult Entered On: 04/17/2020 6:16 EDT Performed On: 04/17/2020 6:02 EDT by SHELBIE ZALDIVAR RN Height and Weight, Clinical Dosing Height Source : Stated Height Entry Format : [place] Height, Feet : 6 ft(Converted to: 183 cm, 72 Inch) Height, Inches : 1 Inch(Converted to: 0 ft 1 Inch, 2.54 cm) Clinical Height : 185.42 cm Weight Source : Standing scale Weight Entry Format : [place] Clinical Dosing Weight : 181.82 kg Weight, Pounds : 400 lb Body Surface Area (BSA) : 2.89 m2 Body Mass Index : 52.9 kg/m2 (>HHI) [place] Body Weight : 79 kg SHELBIE ZALDIVAR RN - 04/17/2020 6:02 EDT Health Histories Smoking Status : Former smoker, quit more than 30 days ago Smokeless Tobacco Status : Smokeless tobacco user within last 30 days Desires Tobacco Cessation Medication : No Reason for No Tobacco Cessation Medication : Refuses FDA approved medications SHELBIE ZALDIVAR RN - 04/17/2020 6:02 EDT Social History (As Of: 04/17/2020 06:16:41 EDT) Tobacco: Former smoker, quit more than [...] was the COVID-19 Testing completed? : NICOLAS Date of COVID-19 test known? : Yes Date of COVID-19 Test : 04/13/2020 EDT COVID19 Screening : No Experiencing Infectious Disease Symptoms : No symptoms Physical contact outside [place] in the last 30 days : No Infectious Disease Symptoms Score : 0 Infectious Disease History : Chicken pox/Shingles, Influenza, Mononucleosis Exposure to Contagious Illness : No Tuberculosis Symptoms : None SHELBIE ZALDIVAR RN - 04/17/2020 6:02 EDT COVID19 PreProcedure Screening Is this an Emergent or Add on Procedure? : No Date of COVID-19 test known? : Yes Date of COVID-19 Test : 04/13/2020 EDT Has patient been isolated since the test : Yes Exposed to COVID19 symptoms since test? : No SHELBIE ZALDIVAR RN - 04/17/2020 6:02 EDT Anesthesia/Transfusion History Family History of Anesthesia Reaction : No prior transfusion(s) Transfusion History : Prior anesthesia without reaction Family History of Anesthesia Reaction : None SHELBIE ZALDIVAR RN - 04/17/2020 6:02 EDT Functional Assessment Living Situation : Home Patient Lives With : Spouse Persons Assisting Patient at Home : Spouse Current Daily Living Assistance : None Sensory Deficits : None Mobility Assistance Prior to Admission : Partial assistance CHELA Hx Falls Immediate/Within 3 Months : No Current Home Treatments : CPAP Home Equipment : Cane Cane : Cane, narrow based Professional Skilled Services : None Special Services and Community Resources : None SHELBIE ZALDIVAR RN - 04/17/2020 6:02 EDT [place] Suicide Severity Rating Scale (C-SSRS) CSSRS Past Month Wish to be : No CSSRS Past Month Suicidal Thoughts : No CSSRS Lifetime Suicide Behavior : No Suicide Severity Rating Score : 0 Suicide Severity Rating : No Additional Care Required at this time Thoughts of Harming/Killing Others : No SHELBIE ZALDIVAR RN - 04/17/2020 6:02 EDT Psychosocial History Do You Have a History of the Following? : Patient denies history Currently in Unsafe Situation : No Do You Have a Support System? : Yes SHELBIE ZALDIVAR RN - 04/17/2020 6:02 EDT Advance Directive Patient has Advance Directive *Q : No, patient refuses Advance Directive information SHELBIE ZALDIVAR RN - 04/17/2020 6:02 EDT Spiritual/Cultural Needs Any Spiritual/Cultural Needs or Requests : No SHELBIE ZALDIVAR RN - 04/17/2020 6:02 EDT Teaching/Learning Assessment Barriers To Learning : None evident Individuals Taught : Patient Readiness to Learn : Cooperative Baseline Knowledge of Topic : Good Readiness to Learn : Explanation, Printed materials Learning Style Preferences Patient : Printed materials, Verbal explanation SHELBIE ZALDIVAR RN - 04/17/2020 6:02 EDT Education Topics, Periop Preadmission Perioperative Education Grid Arrival Time/Place : Verbalizes understanding Falls : Verbalizes understanding IV's : Verbalizes understanding NPO Status/Directions : Verbalizes understanding Pain Management : Verbalizes understanding Preprocedure Preparations : Verbalizes understanding Preprocedure Tests/Labs : Verbalizes understanding Responsible Adult : Verbalizes understanding Take/Hold Medications Pre-Procedure : Verbalizes understanding SHELBIE ZALDIVAR RN - 04/17/2020 6:02 EDT General Info Arrived From : Home Mode of Arrival on Unit : Ambulatory Patient Arrival Date/Time : 04/17/2020 5:30 EDT Legal Guardian : Unaccompanied Want Family/Rep/Phys Notified of Admit : No Emergency Contact #1 : Kaylin Emergency Contact #1 Emergency Contact #1 Relationship : Emergency Contact #2 : - Emergency Contact #2 Phone Number : - Emergency Contact #2 Relationship : - Information Obtained From : Patient Primary Language : Mauritanian Preferred Communication Mode : Verbal Communication Barrier : None Currently Lactating : N/A Status : N/A SHELBIE ZALDIVAR RN - 04/17/2020 6:50 EDT Vital Measurements Temperature Source : Oral Temperature Mode : Fahrenheit Temperature, Fahrenheit : 97.8 Deg F Clinical Temperature, C : 36.6 Deg C Pulse Method : Pulse Oximetry Pulse Source : Radial, Right Peripheral Pulse Rate : 75 bpm Pulse Rhythm : Regular Respiratory Rate : 16 Breaths/Min Blood Pressure Location : Arm, left upper Blood Pressure Source : Non-Invasive BP Device Blood Pressure Position : Side, Left Systolic Blood Pressure : 153 mmHg (HI) Diastolic Blood Pressure : 76 mmHg Oxygen Saturation : 94 % Oxygen Therapy Mode : Room air SHELBIE ZALDIVAR RN - 04/17/2020 6:50 EDT Sleep Apnea Risk Assmt BiPAP/CPAP Ordered for Home Use : Yes Hx of Obstructive Sleep Apnea Diagnosis : Yes BiPAP/CPAP Used at Home : Yes Age over 50 Years Old : Yes Gender Male : Yes SHELBIE ZALDIVAR RN - 04/17/2020 6:50 EDT Shlomo Scale Sh[place]omo Sensory Perception : No impairment [place] Moisture : Rarely moist [place] Activity : Walks occasionally [place]omo Mobility : Very limited [place]omo Nutrition : Excellent [place] Friction and Shear : No apparent problem [place] Score : 20 SHELBIE ZALDIVAR RN - 04/17/2020 6:50 EDT Oxygen Therapy Oxygen Therapy Mode : Room air SHELBIE ZALDIVAR RN - 04/17/2020 6:02 EDT Pain Assessment Pain Assessment : Initial assessment Pain Scale Used : 0-10 Scale Pain Location Comment : [facility] SHELBIE ZALDIVAR RN - 04/17/2020 6:02 EDT Fall Risk Scales ABCs Fall Injury Risk Identification : Surgery ABC Fall Injury Risk : Moderate to high injury risk [place] Hx Falls Immediate/Within 3 Months : No [place] Secondary Diagnosis : Yes [place] Use of Ambulatory Aid : Crutches/Cane/Walker [place] IV Therapy or IV Access : Yes [place] Gait/Transferring : Normal, bedrest, immobile [place] Mental Status : Oriented to own ability [place] Fall Risk Score : 50 [place] Fall Scale Risk Level : 46 or > High Risk [place] Fall Interventions : Adequate lighting, Assistive devices within reach, Bed in low position, Call device within reach, Hourly comfort/safety rounds, Non-slip footwear, Personal items within reach, Upper side-rails up, Wheels locked SHELBIE ZALDIVAR RN - 04/17/2020 6:02 EDT Fall Risk Education Grid Assistive Equipment Use : Verbalizes understanding Call light use : Verbalizes understanding Nonskid Footwear Use : Verbalizes understanding Siderails use/risks : Verbalizes understanding SHELBIE ZALDIVAR RN - 04/17/2020 6:02 EDT Barriers to Learning : None evident Individuals Taught : Patient Readiness to Learn : Cooperative Baseline Knowledge of Topic : Good Teaching Method : Printed materials Learning Style Preferences Patient : Printed materials, Verbal explanation Teaching Evaluation : Verbalizes understanding SHELBIE ZALDIVAR RN - 04/17/2020 6:02 EDT Education Topics, Day of Surgery DayofSurgery Education Grid Anesthesia/Sedation : Verbalizes understanding Fall Risks : Verbalizes understanding IV's : Verbalizes understanding Medication Instructions : Verbalizes understanding Pain Management : Verbalizes understanding Responsible Adult : Verbalizes understanding SHELBIE ZALDIVAR RN - 04/17/2020 6:50 EDT Valuables and Belongings Valuables and Belongings : Clothing, Jewelry, Personal items, Assistive devices Clothing : Common streetwear Clothing Disposition : Sent to SHELBIE Zuniga RN - 04/17/2020 6:02 EDT Jewelry : Ring, Watch SHELBIE ZALDIVAR RN - 04/17/2020 6:50 EDT Jewelry Disposition : Sent to locker Personal Items : Cell phone, Credit cards, Wallet Personal Items Disposition : Sent to locker Assistive Devices From Home : Cane Assistive Device Disposition : Sent to SHELBIE Zuniga RN - 04/17/2020 6:02 EDT Pain Scale Intensity : 5 SHELBIE ZALDIVAR RN - 04/17/2020 6:02 EDT Image 4 - Images currently included in the form version of this document have not been included in the text rendition version of the form. Charan Coma Charan Best Motor Response : Obey commands Charan Best Verbal Response : Oriented Charan Eye Opening Response : Spontaneous Charan Coma Score : 15 SHELBIE ZALDIVAR RN - 04/17/2020 6:02 EDT documented in this encounter Plan of Treatment Not on file documented as of this encounter Visit Diagnoses Not on filedocumented in this encounter
--- OUTSIDE RECORDS SUMMARY | 2025-10-18 09:00 | XMS_ITS | Clinical Summary ---
Author Organization [employer] ([place], [place], [place], [place], [place]) Address [address] [place] [address] Care Team Providers Care Optical Scientist Name Role Phone Unavailable Primary Care Provider [...]
--- OUTSIDE RECORDS SUMMARY | 2025-10-18 09:00 | XMS_ITS | Encounter Summary ---
Author Organization [employer] ([place], [place], [place], [place], [place]) Address [address] [place] [address] Care Team Providers Care Plsql Developer Name Role Phone Unavailable Primary Care Provider Unavailabl e Encounter Details Date Type Department Care Team (Late st Contact Info) Description 01/07/2020 Transcribed Document [facility] [place] Family Medicine [address] [place] [address] ProviderGabe MD [address] [place], [place] [phone] Social History Tobacco Use Types Packs/Day Years Used Date Smoking Tobacco: Never Assessed Sex and Gender Information Value Date Recorded Sex Assigned at Not on file Legal Sex Male 3:36 PM CDT Gender Identity Not on file Sexual Orientation Not on file documented as of this encounter Miscellaneous Notes * Cerner Conversion Note - Historical ProviderMD - 01/07/2020 3:33 PM CDT Nursing Discharge Summary Entered On: 01/07/2020 15:34 EDT Performed On: 01/07/2020 15:33 EDT by JOLENE GRIMALDO RN Discharge Documentation Discharge Date/Time : 01/07/2020 16:00 EDT Patient Disposition, General : Discharge Discharge To : Home with ambulatory/outpatient follow-up Mode Of Departure, General Discharge : Private vehicle, Wheelchair Accompanied By, Discharge : Spouse IV Discontinued : Yes Personal Belongings With Patient : Yes Discharge Instructions Reviewed With, Opportunity For Questions Given : Patient, Spouse Patient Education Completed : Yes Teaching Method : Printed materials, Teach back method Teaching Evaluation : Returns demonstration, Verbalizes understanding JOLENE GRIMALDO RN - 01/07/2020 15:33 EDT Electronically signed by Jamila [facility] Conversion Building Construction Contractor Cerner at 02/06/2023 2:48 PM CDT documented in this encounter Plan of Treatment Not on file documented as of this encounter Visit Diagnoses Not on filedocumented in this encounter
== END 2025-10-18 23:59 | disposition home or self-care (01) ==
LOC: RAD 08:55
PROVIDERS: PCP Nurse Practitioner Family; Visit Provider Nurse Practitioner Family
DX: J18.9 Pneumonia, unspecified organism (principal); R91.1 Solitary pulmonary nodule
CPT/HCPCS: 71250